=== PATIENT | female | born 1955 | race Caucasian/White ===

== ENCOUNTER 2024-04-24 10:27 | Inpatient (IN) | payer MEDICARE, OTHER ==
--- NOTE | 2024-04-24 11:10 | ED ---
General Adult HPI - General Source: family, RN notes reviewed Mode of arrival: wheelchair Limitations: no limitations <Claudia Parikh - Last Filed: 04/24/24 11:08> - General Source: patient, RN notes reviewed Limitations: no limitations <Jeferson Garcia - Last Filed: 04/24/24 13:46> - General Chief complaint: Weakness Stated complaint: Weakness Time Seen by Provider: 04/24/24 11:08 - History of Present Illness Initial comments: Quick note: 68-year-old female presented to the ER with a chief complaint of weakness. Family reports on Saturday patient started to not act herself. Family believes she has a UTI. They state 1 morning she woke up and her bilateral hands and face were swollen. Family report patient was found on the ground this morning. Patient denies any current pain. (Claudia Parikh) Patient is a 68-year-old female presenting to the emergency department for concerns for weakness. Patient states she has felt more weak the past couple of days. Patient admits to feeling dry when questioned. Patient states she did have a fall yesterday however denies any injury. (Jeferson Garcia) - Related Data Home Medications Medication Instructions Recorded Confirmed metFORMIN HCL [Glucophage] 500 mg PO BID PRN 06/18/14 04/24/24 Aspirin 81 mg PO DAILY 04/24/24 04/24/24 Atorvastatin [Lipitor] 40 mg PO HS 04/24/24 04/24/24 Clopidogrel [Plavix] 75 mg PO DAILY 04/24/24 04/24/24 Loratadine [Claritin] 10 mg PO DAILY 04/24/24 04/24/24 Trospium Chloride 20 mg PO DAILY 04/24/24 04/24/24 lisinopriL [Zestril] 2.5 mg PO DAILY 04/24/24 04/24/24 Allergies Allergy/AdvReac Type Severity Reaction Status Date / Time clarithromycin [From Biaxin] Allergy Rash/Hives Verified 04/24/24 12:41 Review of Systems ROS Other: All systems not noted in ROS Statement are negative. <Claudia Parikh - Last Filed: 04/24/24 11:08> ROS Other: All systems not noted in ROS Statement are negative. Constitutional: Denies: fever (Patient denies) Respiratory: Denies: cough, dyspnea Cardiovascular: Denies: chest pain Gastrointestinal: Denies: abdominal pain Neurological: Reports: as per HPI, weakness. Denies: headache <Jeferson Garcia - Last Filed: 04/24/24 13:46> ROS Statement: Those systems with pertinent positive or pertinent negative responses have been documented in the HPI. Past Medical History Past Medical History: Diabetes Mellitus, Fibromyalgia, Rheumatoid Arthritis (RA) History of Any Multi-Drug Resistant Organisms: None Reported Past Surgical History: Tubal Ligation Past Anesthesia/Blood Transfusion Reactions: No Reported Reaction Past Psychological History: No Psychological Hx Reported Past Alcohol Use History: None Reported Past Drug Use History: None Reported <Claudia Parikh - Last Filed: 04/24/24 11:08> General Exam Limitations: no limitations <Claudia Parikh - Last Filed: 04/24/24 11:08> Limitations: no limitations General appearance: alert, in no apparent distress Head exam: Present: atraumatic, normocephalic Eye exam: Present: normal appearance, PERRL, EOMI ENT exam: Present: mucous membranes dry Neck exam: Present: normal inspection. Absent: tenderness, meningismus Respiratory exam: Present: normal lung sounds bilaterally Cardiovascular Exam: Present: regular rate, normal rhythm GI/Abdominal exam: Present: soft. Absent: tenderness Extremities exam: Present: normal inspection, full ROM. Absent: tenderness Neurological exam: Present: alert, oriented X3, CN II-XII intact. Absent: motor sensory deficit Expanded Neurological exam: Present: protecting the airway Patient oriented to: Present: person, place, time Speech: Present: fluid speech Motor strength exam: RUE: 5, LUE: 5, RLE: 5, LLE: 5 Eye Response: (4) open spontaneously Motor Response: (6) obeys commands Verbal Response: (5) oriented Psychiatric exam: Present: normal affect, normal mood Skin exam: Present: normal color <Jeferson Garcia - Last Filed: 04/24/24 13:46> - General Exam Comments Initial Comments: Visual Physical Exam Vital signs reviewed General: Well-appearing, nontoxic, no acute distress. Head: Normocephalic, atraumatic Eyes: PERRLA, EOMI ENT: Airway patent Chest: Nonlabored breathing Skin: No visual rash, normal skin tone Neuro: Alert and oriented 3 Musculoskeletal: No gross abnormalities (Claudia Parikh) Course <Jeferson Garcia - Last Filed: 04/24/24 13:46> Vital Signs 04/24/24 04/24/24 10:34 10:40 Temperature 101.2 F H Pulse Rate 94 83 Respiratory 18 16 Rate Blood Pressure 166/80 163/63 O2 Sat by Pulse 97 94 L Oximetry - Reevaluation(s) Reevaluation #1: 04/24/24 12:21 Family and patient refused CT scan stating symptoms are similar to previous urinary tract infection and they do not feel it is necessary. (Jeferson Garcia) EKG Findings - EKG Results: EKG: interpreted by ERMD (Inferior T wave inversion. Lateral T wave inversion.), sinus rhythm, normal axis, normal QRS EKG shows: atrial fibrillation <Jeferson Garcia - Last Filed: 04/24/24 13:46> Medical Decision Making <Claudia Parikh - Last Filed: 04/24/24 11:08> - Lab Data Result diagrams: 04/24/24 11:12 04/24/24 11:12 <Jeferson Garcia - Last Filed: 04/24/24 13:46> - Medical Decision Making I performed the quick note portion of this chart. Electronically signed by Claudia Parikh PA-C (Claudia Parikh) Was pt. sent in by a medical professional or institution ([facility], [facility], urgent care, hospital, or half-way...) When possible be specific @ -No Did you speak to anyone other than the patient for history (EMS, parent, family, police, friend...)? What history was obtained from this source @ -Daughter provides history of similar symptoms previously Did you review nursing and triage notes (agree or disagree)? Why? @ -I reviewed and agree with nursing and triage notes Were old charts reviewed (outside hosp., previous admission, EMS record, old EKG, old radiological studies, urgent care reports/EKG's, half-way records)? Report findings @ -No old charts were reviewed Differential Diagnosis (chest pain, altered mental status, abdominal pain women, abdominal pain men, vaginal bleeding, weakness, fever, dyspnea, syncope, headache, dizziness, GI bleed, back pain, seizure, CVA, palpatations, mental health, musculoskeletal)? @ -Differential Weakness: Hypoglycemia, shock, sepsis, hyponatremia, anemia, infection, ID, ETOH, adverse medicine reaction, overdose, stroke, this is not meant to be an all-inclusive list. EKG interpreted by me (3pts min.). @ -As above X-rays interpreted by me (1pt min.). @ -Chest x-ray shows no acute process CT interpreted by me (1pt min.). @ -None done U/S interpreted by me (1pt. min.). @ -None done What testing was considered but not performed or refused? (CT, X-rays, U/S, labs)? Why? @ -CT brain was ordered by PA however family patient refused because of similar symptoms previously associated with urinary tract infection. What meds were considered but not given or refused? Why? @ -None Did you discuss the management of the patient with other professionals (professionals i.e. , PA, [facility], lab, RT, psych nurse, rn social work, end worker, teacher, probation and parole officer, case preparer and liner)? Give summary @ -Case discussed with Dr. Burns who will admit covering Dr. Madsen Was smoking cessation discussed for >3mins.? @ -No Was critical care preformed (if so, how long)? @ -31 minutes critical care time provided Were there social determinants of health that impacted care today? How? (Homelessness, low income, unemployed, alcoholism, drug addiction, t ransportation, low edu. Level, literacy, decrease access to med. care, correction, rehab)? @ -No Was there de-escalation of care discussed even if they declined (Discuss DNR or withdrawal of care, Hospice)? DNR status @ -No What co-morbidities impacted this encounter? (DM, HTN, Smoking, COPD, CAD, Cance r, CVA, ARF, Chemo, Hep., AIDS, mental health diagnosis, sleep apnea, morbid obesity)? @ -None Was patient admitted / discharged? Hospital course, mention meds given and route, prescriptions, significant lab abnormalities, going to OR and other pertinent info. @ -Patient presents with weakness confusion and fever and urinary tract infection. Patient will be admitted. Admission orders written. There is concern for sepsis diagnosed at 1330. Blood culture and lactic acid and IV antibiotics have all been ordered. Undiagnosed new problem with uncertain prognosis? @ -No Drug Therapy requiring intensive monitoring for toxicity (Heparin, Nitro, Insulin, Cardizem)? @ -No Were any procedures done? @ -No Diagnosis/symptom? @ -UTI, sepsis Acute, or Chronic, or Acute on Chronic? @ -Acute, acute Uncomplicated (without systemic symptoms) or Complicated (systemic symptoms)? @ -Default Side effects of treatment? @ -No Exacerbation, Progression, or Severe Exacerbation? @ -No Poses a threat to life or bodily function? How? (Chest pain, USA, ID, pneumonia, PE, COPD, DKA, ARF, appy, cholecystitis, CVA, Diverticulitis, Homicidal, Suicidal, threat to staff... and all critical care pts) @ -Threat to organ function diffusely (Jeferson Garcia) - Lab Data Lab Results 04/24/24 04/24/24 04/24/24 Range/Units 11:12 11:12 11:12 WBC 13.8 H (3.8-10.6) k/uL RBC 4.36 (3.80-5.40) m/uL Hgb 13.4 (11.4-16.0) gm/dL Hct 40.4 (34.0-46.0) % MCV 92.7 (80.0-100.0) fL MCH 30.7 (25.0-35.0) pg MCHC 33.1 (31.0-37.0) g/dL RDW 13.9 (11.5-15.5) % Plt Count 207 (150-450) k/uL MPV 8.7 Neutrophils % 90 % Lymphocytes % 4 % Monocytes % 4 % Eosinophils % 1 % Basophils % 0 % Neutrophils # 12.5 H (1.3-7.7) k/uL Lymphocytes # 0.5 L (1.0-4.8) k/uL Monocytes # 0.5 (0-1.0) k/uL Eosinophils # 0.1 (0-0.7) k/uL Basophils # 0.0 (0-0.2) k/uL Sodium 130 L (137-145) mmol/L Potassium 3.4 L (3.5-5.1) mmol/L Chloride 100 (98-107) mmol/L Carbon Dioxide 25 (22-30) mmol/L Anion Gap 5 mmol/L BUN 14 (7-17) mg/dL Creatinine 0.84 (0.52-1.04) mg/dL Est GFR (CKD-EPI)AfAm 81 (>60 ml/min/1.73 sqM) Est GFR (CKD-EPI)NonAf 71 (>60 ml/min/1.73 sqM) Glucose 261 H (74-99) mg/dL Plasma Lactic Acid Edgardo (0.7-2.0) mmol/L Calcium 8.5 (8.4-10.2) mg/dL Total Bilirubin 1.0 (0.2-1.3) mg/dL AST 30 (14-36) U/L ALT 14 (4-34) U/L Alkaline Phosphatase 120 (38-126) U/L Total Protein 6.7 (6.3-8.2) g/dL Albumin 3.5 (3.5-5.0) g/dL Urine Color Yellow Urine Appearance Turbid H (Clear) Urine pH 6.5 (5.0-8.0) Ur Specific [place] 1.018 (1.001-1.035) Urine Protein 3+ H (Negative) Urine Glucose (UA) Negative (Negative) Urine Ketones 1+ H (Negative) Urine Blood Moderate H (Negative) Urine Nitrite Negative (Negative) Urine Bilirubin Negative (Negative) Urine Urobilinogen <2.0 (<2.0) mg/dL Ur Leukocyte Esterase Large H (Negative) Urine RBC 14 H (0-5) /hpf Urine WBC >182 H (0-5) /hpf Urine WBC Clumps Many H (None) /hpf Urine Bacteria Moderate H (None) /hpf Hyaline Casts 5 H (0-2) /lpf Urine Mucus Occasional H (None) /hpf Influenza Type A (PCR) (Not Detectd) Influenza Type B (PCR) (Not Detectd) RSV (PCR) (Not Detectd) SARS-CoV-2 (PCR) (Not Detectd) 04/24/24 04/24/24 Range/Units 11:12 11:12 WBC (3.8-10.6) k/uL RBC (3.80-5.40) m/uL Hgb (11.4-16.0) gm/dL Hct (34.0-46.0) % MCV (80.0-100.0) fL MCH (25.0-35.0) pg MCHC (31.0-37.0) g/dL RDW (11.5-15.5) % Plt Count (150-450) k/uL MPV Neutrophils % % Lymphocytes % % Monocytes % % Eosinophils % % Basophils % % Neutrophils # (1.3-7.7) k/uL Lymphocytes # (1.0-4.8) k/uL Monocytes # (0-1.0) k/uL Eosinophils # (0-0.7) k/uL Basophils # (0-0.2) k/uL Sodium (137-145) mmol/L Potassium (3.5-5.1) mmol/L Chloride (98-107) mmol/L Carbon Dioxide (22-30) mmol/L Anion Gap mmol/L BUN (7-17) mg/dL Creatinine (0.52-1.04) mg/dL Est GFR (CKD-EPI)AfAm (>60 ml/min/1.73 sqM) Est GFR (CKD-EPI)NonAf (>60 ml/min/1.73 sqM) Glucose (74-99) mg/dL Plasma Lactic Acid Edgardo 1.5 (0.7-2.0) mmol/L Calcium (8.4-10.2) mg/dL Total Bilirubin (0.2-1.3) mg/dL AST (14-36) U/L ALT (4-34) U/L Alkaline Phosphatase (38-126) U/L Total Protein (6.3-8.2) g/dL Albumin (3.5-5.0) g/dL Urine Color Urine Appearance (Clear) Urine pH (5.0-8.0) Ur Specific [place] (1.001-1.035) Urine Protein (Negative) Urine Glucose (UA) (Negative) Urine Ketones (Negative) Urine Blood (Negative) Urine Nitrite (Negative) Urine Bilirubin (Negative) Urine Urobilinogen (<2.0) mg/dL Ur Leukocyte Esterase (Negative) Urine RBC (0-5) /hpf Urine WBC (0-5) /hpf Urine WBC Clumps (None) /hpf Urine Bacteria (None) /hpf Hyaline Casts (0-2) /lpf Urine Mucus (None) /hpf Influenza Type A (PCR) Not Detected (Not Detectd) Influenza Type B (PCR) Not Detected (Not Detectd) RSV (PCR) Not Detected (Not Detectd) SARS-CoV-2 (PCR) Not Detected (Not Detectd) Disposition <Claudia Parikh - Last Filed: 04/24/24 11:08> Is patient prescribed a controlled substance at d/c from ED?: No Time of Disposition: 13:46 <Jeferson Garcia - Last Filed: 04/24/24 13:46> Clinical Impression: UTI (urinary tract infection), Sepsis Disposition: ADMITTED IP TO THIS HOSP Referrals: Bryson Ansari DO [Primary Care Provider] - 1-2 days
[2024-04-24 11:38] LABS: Basophils % (A) 0 %; Eosinophils # (A) 0.1 k/uL (0-0.7); Eosinophils % (A) 1 %; HCT 40.4 % (34.0-46.0); HGB 13.4 gm/dL (11.4-16.0); Lymphocytes # (A) 0.5 k/uL (1.0-4.8); Lymphocytes % (A) 4 %; MCH 30.7 pg (25.0-35.0); MCHC 33.1 g/dL (31.0-37.0); MCV 92.7 fL (80.0-100.0); Mean Platelet Volume 8.7; Monocytes # (A) 0.5 k/uL (0-1.0); Monocytes % (A) 4 %; Neutrophils # (A) 12.5 k/uL (1.3-7.7); Neutrophils % (A) 90 %; Platelet Count 207 k/uL (150-450); RBC 4.36 m/uL (3.80-5.40); RDW 13.9 % (11.5-15.5); WBC 13.8 k/uL (3.8-10.6)
[2024-04-24 12:28] LABS: ALT 14 U/L (4-34); AST 30 U/L (14-36); African American GFR (CKD) 81 (>60 ml/min/1.73 sqM); Albumin 3.5 g/dL (3.5-5.0); Alkaline Phosphatase 120 U/L (38-126); Anion Gap 5 mmol/L; Blood Urea Nitrogen 14 mg/dL (7-17); Calcium 8.5 mg/dL (8.4-10.2); Carbon Dioxide 25 mmol/L (22-30); Chloride 100 mmol/L (98-107); Glucose 261 mg/dL (74-99); Non-African American GFR(CKD) 71 (>60 ml/min/1.73 sqM); Potassium 3.4 mmol/L (3.5-5.1); Sodium 130 mmol/L (137-145); Total Protein 6.7 g/dL (6.3-8.2)
[2024-04-24 12:33] LABS: Appearance,Urine Turbid (Clear); Bacteria,Urine Moderate /hpf; Bilirubin,Urine Negative (Negative); Blood,Urine Moderate (Negative); Color,Urine Yellow; Glucose,Urine (UA) Negative (Negative); Hyaline Casts,Urine 5 /lpf (0-2); Ketones,Urine 1+ (Negative); Leukocyte Esterase,Urine Large (Negative); Mucus,Urine Occasional /hpf; Nitrite,Urine Negative (Negative); PH, Urine 6.5 (5.0-8.0); Protein,Urine 3+ (Negative); RBC,Urine 14 /hpf (0-5); Specific Gravity,Urine 1.018 (1.001-1.035); Urobilinogen,Urine <2.0 mg/dL (<2.0); WBC,Urine >182 /hpf (0-5)
[2024-04-24] MEDS: ACETAMINOPHEN TAB 500 MG TAB PO STA (12:41)
--- NOTE | 2024-04-24 12:45 | XR ---
EXAMINATION TYPE: XR chest 2V DATE OF EXAM: 04/24/2024 COMPARISON: 05/07/2012 INDICATION: Fever, weakness TECHNIQUE: Frontal and lateral views of the chest are obtained. FINDINGS: The heart size is normal. The pulmonary vasculature is normal. The lungs are clear. IMPRESSION: 1. No acute pulmonary process.
[2024-04-24] MEDS: SODIUM CHLORIDE 0.9% 1,000 ML IV STA (13:12)
[2024-04-24] MEDS ORDERED: metFORMIN 500 MG TAB PO PRN (13:46)
[2024-04-24] MEDS ORDERED: NALOXONE 0.4 MG/ML 1 ML VIAL IV PRN (13:50)
[2024-04-24] MEDS ORDERED: ACETAMINOPHEN TAB 325 MG TAB PO PRN (13:50)
[2024-04-24] MEDS: SODIUM CHLORIDE 0.9% 1,000 ML IV SCH (14:18)
[2024-04-24] MEDS ORDERED: DEXTROSE 50% SYRINGE 50 ML IVP PRN ×2 (15:22)
[2024-04-24] MEDS ORDERED: HYDROcodone/APAP 5-325MG 1 EACH TAB PO PRN (15:22)
[2024-04-24] MEDS: methylPREDNISolone SOD SUCCI 125 MG/2 ML VIAL IV SCH (16:35)
[2024-04-24 16:44] LABS: C Reactive Protein 26.2 mg/dL (<1.0)
[2024-04-24 18:02] LABS: Glucose,Whole Blood 218 mg/dL (70-110)
[2024-04-24] MEDS: INSULIN ASPART (NovoLOG) 100 UNIT/ML VIAL SQ SCH (18:14)
[2024-04-24 20:26] LABS: Glucose,Whole Blood 250 mg/dL (70-110)
[2024-04-24] MEDS: HEPARIN SODIUM,PORCINE 5,000 UNIT/ML 1 ML VIAL SQ SCH (20:45)
[2024-04-24] MEDS: ATORVASTATIN 40 MG TAB PO SCH (20:45)
--- NOTE | 2024-04-24 22:20 | HP ---
HISTORY AND PHYSICAL CHIEF COMPLAINT: Weakness. HISTORY OF PRESENT ILLNESS: This is a 68-year-old woman with a past medical history of multiple medical problems including diabetes, fibromyalgia, rheumatoid arthritis, was complaining of weakness. The family reports that the patient woke up and the hands were swollen. The patient was found on the ground and the patient was confused. The patient was admitted for further evaluation and treatment. There is no history of any fever, rigors, or chills at this time. PAST MEDICAL HISTORY: Rheumatoid arthritis, fibromyalgia, diabetes mellitus type 2, rest of the history and rest of the chart reviewed. HOME MEDICATIONS: Glucophage, dose and rest of medications reviewed. ALLERGIES: Biaxin. FAMILY HISTORY: No history of heart disease or strokes in the family. SOCIAL HISTORY: No history of smoking or alcohol. REVIEW OF SYSTEMS: A 14-point review is negative except as mentioned earlier. The patient is slightly drowsy. PHYSICAL EXAMINATION: VITAL SIGNS: Pulse is 73, blood pressure is 130/70, respirations 18, and temperature is 101.2. HEENT: Conjunctivae normal. NECK: No jugular venous distention. CARDIOVASCULAR: S1, S2. RESPIRATIONS: Diminished at the bases, few scattered rhonchi and crackles. ABDOMEN: Soft, nontender. LEGS: No edema, no swelling. NERVOUS SYSTEM: Diffusely weak. EXTREMITIES: Both hand swelling present. LABORATORY DATA: WBC 13.8, rest of the labs are noted. ASSESSMENT: 1. Acute UTI with sepsis present on admission. 2. Elevated creatine kinase. 3. Elevated WBC. 4. Diabetes mellitus type 2, uncontrolled. 5. Hyponatremia. 6. Hypokalemia. 7. Fibromyalgia. 8. Rheumatoid arthritis. 9. Bilateral hand swelling. RECOMMENDATIONS AND DISCUSSION: This 68-year-old woman presented with multiple complex medical issues, we will monitor the patient closely. We will initiate broad-spectrum IV antibiotics, obtain the cultures. I would also recommend IV steroids for possible rheumatoid arthritis exacerbation. Cultures will be obtained. Prognosis guarded because of multiple complex medical issues. Otherwise, I would also recommend evaluation by Infectious Disease. Guarded prognosis because of multiple complex medical issues. Further recommendations to follow. See orders for details. MMODL / IJN: [id number] / MTDD
[2024-04-25 05:44] LABS: Glucose,Whole Blood 249 mg/dL (70-110)
[2024-04-25] MEDS: PANTOPRAZOLE 40 MG TABLET PO SCH (06:04)
[2024-04-25] MEDS: LORATADINE 10 MG TAB PO SCH (08:36)
[2024-04-25] MEDS: ASPIRIN 81 MG PO SCH (08:36)
[2024-04-25] MEDS: CLOPIDOGREL 75 MG TAB PO SCH (08:36)
[2024-04-25] MEDS: TROSPIUM CHLORIDE 20 MG TABLET PO SCH (08:36)
[2024-04-25 09:37] LABS: BUN/Creat Ratio 19.89 Ratio (12.00-20.00); Blood Urea Nitrogen 17.9 mg/dL (9.0-27.0); Calcium 8.4 mg/dL (8.7-10.3); Carbon Dioxide 23.8 mmol/L (21.6-31.8); Chloride 98 mmol/L (96-109); Glucose 261 mg/dL (70-110); Potassium 3.3 mmol/L (3.5-5.5); Sodium 134 mmol/L (135-145)
[2024-04-25 09:39] LABS: HCT 33.9 % (37.2-46.3); HGB 11.5 g/dL (12.0-15.0); MCH 31.9 pg (27.0-32.0); MCHC 33.9 g/dL (32.0-37.0); MCV 93.9 FL (80.0-97.0); Mean Platelet Volume 10.7 FL (9.5-12.2); NRBC Per 100 WBC 0 X 10*3/uL (0.00-0.01); Platelet Count 147 X 10*3/uL (140-440); RBC 3.61 X 10*6/uL (4.10-5.20); RDW 14.3 % (11.5-14.5); WBC 11.58 X 10*3/uL (4.50-10.00)
[2024-04-25 10:11] LABS: Magnesium 1.6 mg/dL (1.6-2.3)
[2024-04-25 10:21] LABS: Basophils # (A) 0.03 X 10*3/uL (0.00-0.10); Basophils % (A) 0.3 %; Eosinophils # (A) 0 X 10*3/uL (0.04-0.35); Eosinophils % (A) 0 %; Lymphocytes # (A) 0.46 X 10*3/uL (0.90-5.00); Monocytes % (A) 0.9 %
[2024-04-25 11:09] LABS: T4, Free (Free Thyroxine) 1.21 ng/dL (0.78-2.19)
[2024-04-25 11:36] LABS: Glucose,Whole Blood 373 mg/dL (70-110)
--- NOTE | 2024-04-25 12:16 | P.CRDCN ---
History of Present Illness Consult date: 04/25/24 Consult reason: atrial fibrillation History of present illness: The patient is a 68-year-old female with past medical history of diabetes and hypertension, who presented to the hospital with symptoms of a urinary tract infection. The patient states she did have a recent admission to [facility] for UTI and sepsis, where she was also treated for severe hyponatremia. Cardiology has been consulted at this admission for atrial fib rillation. EKG was evaluated by Dr. Couch and she has accelerated junctional arrhythmia with A-V dissociation. DIAGNOSTICS: EKG shows accelerated junctional rhythm with PAC Follow-up EKG shows sinus mechanism with incomplete left bundle and diffuse deep T wave inversions Chest x-ray shows no acute cardiopulmonary process Labs: WBC 11.5, hemoglobin 11.5, hematocrit 33.9, platelet 147, sodium 134, potassium 3.3, BUN 17, creatinine 0.9, hemoglobin A1c is 8.1, magnesium 1.6, TSH 0.06, CRP 26, CK 181, rheumatoid factor 74, positive for urinary tract infection REVIEW OF SYSTEMS: No fever or chills. No cough or expectoration. No diaphoresis. Patient denies headache, dizziness, blurred vision, double vision. Patient denies any stomach discomfort. No nausea, vomiting. No hematochezia. No hematemesis. Denies any black stools or blood in his stools. Denies dysuria or hematuria. No muscle weakness or numbness. Denies chest pain or chest pressure. No difficulty breathing PHYSICAL EXAMINATION: This is a 68-year-old female in no apparent distress at the time of my examination. HEENT: Head is atraumatic, normocephalic. Pupils are equal, round. Sclerae anicteric. Conjunctivae are clear. Mucous membranes of the mouth are moist. Neck is supple. There is no jugular venous distention. No carotid bruit is heard. CHEST EXAMINATION: Lungs are clear to auscultation. No chest wall tenderness is noted on palpation or with deep breathing. HEART EXAMINATION: Heart regular rate and rhythm. S1, S2 heard. No murmurs, gallops or rub. ABDOMEN: Soft, nontender. Bowel sounds are heard. No organomegaly noted. EXTREMITIES: 2+ peripheral pulses with no evidence of peripheral edema and no calf tenderness noted. NEUROLOGIC EXAMINATION: Patient is awake, alert and oriented x3. FINAL ASSESSMENT AND PLAN: Accelerated junctional rhythm in the setting of an acute inflammatory response Suppressed TSH Elevated inflammatory markers Urinary tract infection History of diabetes mellitus, hemoglobin A1c 8.1 History hypertension PLAN: Trend troponin for suspected myocardial inflammation Continue to monitor via telemetry Abnormal TSH, defer to primary team Further recommendations to be based upon clinical course I am dictating on behalf of Dr Hunter Couch's history/physical and assessment/plan. Past Medical History Past Medical History: Diabetes Mellitus, Fibromyalgia, Rheumatoid Arthritis (RA) History of Any Multi-Drug Resistant Organisms: None Reported Past Surgical History: Tubal Ligation Past Anesthesia/Blood Transfusion Reactions: No Reported Reaction Past Psychological History: No Psychological Hx Reported Smoking Status: Current every day smoker Past Alcohol Use History: None Reported Past Drug Use History: None Reported Medications and Allergies Home Medications Medication Instructions Recorded Confirmed Type metFORMIN HCL [Glucophage] 500 mg PO BID PRN 06/18/14 04/24/24 History Aspirin 81 mg PO DAILY 04/24/24 04/24/24 History Atorvastatin [Lipitor] 40 mg PO HS 04/24/24 04/24/24 History Clopidogrel [Plavix] 75 mg PO DAILY 04/24/24 04/24/24 History Loratadine [Claritin] 10 mg PO DAILY 04/24/24 04/24/24 History Trospium Chloride 20 mg PO DAILY 04/24/24 04/24/24 History lisinopriL [Zestril] 2.5 mg PO DAILY 04/24/24 04/24/24 History Allergies Allergy/AdvReac Type Severity Reaction Status Date / Time clarithromycin [From Biaxin] Allergy Rash/Hives Verified 04/24/24 12:41 Physical Exam Vitals: Vital Signs Temp Pulse Pulse Resp BP BP Pulse Ox 04/25/24 07:00 98.5 F 76 18 146/70 92 L 04/25/24 01:43 98.1 F 69 19 123/75 95 04/24/24 19:32 99.1 F 84 18 147/58 92 L 04/24/24 18:18 88 16 101/67 96 04/24/24 15:07 73 18 133/56 94 L Intake and Output 04/24/24 04/25/24 04/25/24 22:59 06:59 14:59 Other: Voiding Method Diaper Incontinent # Voids 1 Weight 63.503 kg Results 04/25/24 06:43 06/01/24 06:43 Cardiac Enzymes 04/24/24 Range/Units 11:12 AST 30 (14-36) U/L CBC 04/25/24 Range/Units 06:43 WBC 11.58 H (4.50-10.00) X 10*3/uL RBC 3.61 L (4.10-5.20) X 10*6/uL Hgb 11.5 L (12.0-15.0) g/dL Hct 33.9 L (37.2-46.3) % Plt Count 147 (140-440) X 10*3/uL Comprehensive Metabolic Panel 04/24/24 04/25/24 Range/Units 11:12 06:43 Sodium 130 L 134 L (137-145) mmol/L Potassium 3.4 L 3.3 L (3.5-5.1) mmol/L Chloride 100 98 (98-107) mmol/L Carbon Dioxide 25 23.8 (22-30) mmol/L BUN 14 17.9 (7-17) mg/dL Creatinine 0.84 0.9 (0.52-1.04) mg/dL Glucose 261 H 261 H (74-99) mg/dL Calcium 8.5 8.4 L (8.4-10.2) mg/dL AST 30 (14-36) U/L ALT 14 (4-34) U/L Alkaline Phosphatase 120 (38-126) U/L Total Protein 6.7 (6.3-8.2) g/dL Albumin 3.5 (3.5-5.0) g/dL Current Medications Generic Name Dose Route Start Last Admin Trade Name Freq PRN Reason Stop Dose Admin Acetaminophen 650 mg 04/24/24 13:50 Acetaminophen Tab 325 Mg Tab PO Q6HR PRN Mild Pain or Fever > 100.5 Hydrocodone Bitart/Acetaminophen 1 each 04/24/24 15:22 Hydrocodone/Apap 5-325mg 1 Each Tab PO Q6HR PRN Pain Atorvastatin Calcium 40 mg 04/24/24 21:00 04/24/24 20:45 Atorvastatin 40 Mg Tab PO 40 mg HS ANA MARIA Administration Clopidogrel Bisulfate 75 mg 04/25/24 09:00 04/25/24 08:36 Clopidogrel 75 Mg Tab PO 75 mg DAILY ANA MARIA Administration Dextrose/Water 25 ml 04/24/24 15:22 Dextrose 50% Syringe 50 Ml IVP PER PROTOCOL PRN Hypoglycemia Protocol Dextrose/Water 50 ml 04/24/24 15:22 Dextrose 50% Syringe 50 Ml IVP PER PROTOCOL PRN Hypoglycemia Protocol Heparin Sodium (Porcine) 5,000 unit 04/24/24 21:00 04/25/24 08:36 Heparin Sodium,Porcine 5,000 Unit/Ml 1 Ml Vial SQ 5,000 unit Q12HR ANA MARIA Administration Sodium Chloride 1,000 mls @ 130 mls/hr 04/24/24 14:00 04/25/24 06:09 Saline 0.9% IV 130 mls/hr .[id number] ANA MARIA Administration Ceftriaxone Sodium 2 gm/ 50 mls @ 100 mls/hr 04/26/24 09:00 Sodium Chloride IVPB Q24HR ANA MARIA Protocol Insulin Aspart 0 unit 04/24/24 17:30 04/25/24 11:49 Insulin Aspart (Novolog) 100 Unit/Ml Vial SQ 20 unit ACHS ANA MARIA Administration Protocol Lisinopril 2.5 mg 04/25/24 09:00 04/25/24 08:36 Lisinopril 2.5 Mg Tab PO 2.5 mg DAILY ANA MARIA Administration Loratadine 10 mg 04/25/24 09:00 04/25/24 08:36 Loratadine 10 Mg Tab PO 10 mg DAILY ANA MARIA Administration Metformin HCl 500 mg 04/24/24 13:46 Metformin 500 Mg Tab PO BID PRN high BS, hold for bowel issues Methylprednisolone Sodium Succinate 60 mg 04/24/24 15:22 04/25/24 11:48 Methylprednisolone Sod Succi 125 Mg/2 Ml Vial IV 60 mg Q6HR ANA MARIA Administration Naloxone HCl 0.2 mg 04/24/24 13:50 Naloxone 0.4 Mg/Ml 1 Ml Vial IV Q2M PRN Opioid Reversal Pantoprazole Sodium 40 mg 04/25/24 07:30 04/25/24 06:05 Pantoprazole 40 Mg Tablet PO 40 mg [id number] ANA MARIA Administration Trospium 20 mg 04/25/24 09:00 04/25/24 08:36 Trospium Chloride 20 Mg Tablet PO 20 mg DAILY ANA MARIA Administration Intake and Output 04/24/24 04/25/24 04/25/24 22:59 06:59 14:59 Other: Voiding Method Diaper Incontinent # Voids 1 Weight 63.503 kg 04/25/24 06:43 06/01/24 06:43
--- NOTE | 2024-04-25 12:16 | P.PN ---
Progress Note - Text First twelve-lead EKG showed accelerated junctional rhythm with clear evidence of A-V dissociation Follow-up twelve-lead EKG showed sinus rhythm Both EKG showed deep T wave inversions, diffuse She is diabetic hemoglobin A1c is 8.1 She has a UTI with a C-reactive protein of 26 Her CK is 181 Potassium 3.3 calcium 8.5 Abnormal UA Negative PCR for influenza A and influenza B and RSV as well as COVID Rheumatoid factor 74 TSH suppressed at 0.66 Impression Accelerated junctional rhythm and deep T wave inversions on twelve-lead EKG without any significant cardiac symptoms presently, in the setting of an inflammatory state She presented with a fall Type 2 diabetes Plan telemetry monitoring Troponin levels 2D echo Doppler study to assess LV and RV size and function
--- NOTE | 2024-04-25 12:44 | CA ---
Transthoracic Echo Report Name: Debi Crocker Age: 68 Gender: F : 1955 Exam Date: 04/25/2024 11:39 Exam Location: [place] [facility] Ht (in): 63 Wt (lb): 161 Ordering Physician: Lindsay Gallagher Attending/Referring Phys: [id number], Aileen Squilgeer Angela Phoenix, NEREYDA Procedure CPT: Indications: new EKG changes/AFib Cardiac Hx: Technical Quality: Fair Contrast 1: Total Dose (mL): Contrast 2: Total Dose (mL): MEASUREMENTS (Male / Female) Normal Values 2D ECHO LV Diastolic Diameter PLAX 5.1 cm 4.2 - 5.9 / 3.9 - 5.3 cm LV Systolic Diameter PLAX 3.2 cm IVS Diastolic Thickness 1.2 cm 0.6 - 1.0 / 0.6 - 0.9 cm LVPW Diastolic Thickness 1.3 cm 0.6 - 1.0 / 0.6 - 0.9 cm LV Relative Wall Thickness 0.5 RV Internal Dim ED PLAX 2.1 cm LA Systolic Diameter LX 4.9 cm 3.0 - 4.0 / 2.7 - 3.8 cm LV Diastolic Volume MOD BP 82.2 cm??? 67 - 155 / 56 - 104 cm??? LV Systolic Volume MOD BP 38.5 cm??? - 58 / 19 - 49 cm??? LV Ejection Fraction MOD BP 53.2 % >= 55 % LV Cardiac Index MOD BP 1845.2 cm???/min???m??? LV Diastolic Volume MOD 4C 83.7 cm??? LV Systolic Volume MOD 4C 36.1 cm??? LV Ejection Fraction MOD 4C 56.9 % LV Cardiac Index MOD 4C 2010.5 cm???/min???m??? LV Diastolic Length 4C 7.6 cm LV Systolic Length 4C 6.8 cm LV Diastolic Volume MOD 2C 80.6 cm??? LV Systolic Volume MOD 2C 39.9 cm??? LV Ejection Fraction MOD 2C 50.6 % LV Cardiac Index MOD 2C 1722.2 cm???/min???m??? LV Diastolic Length 2C 7.6 cm LV Systolic Length 2C 7.1 cm LA Volume 56.1 cm??? 18 - 58 / 22 - 52 cm??? LA Volume Index 30.7 cm???/m??? 16 - 28 cm???/m??? M-MODE Aortic Root Diameter MM 2.8 cm LA Systolic Diameter MM 3.9 cm LA Ao Ratio MM 1.4 AV Cusp Separation MM 1.5 cm DOPPLER AV Peak Velocity 164.8 cm/s AV Peak Gradient 10.9 mmHg FINDINGS Left Ventricle No obvious regional wall motion abnormalities. Left ventricular ejection fraction is estimated at 55-60 %. Mildly increased septal wall thickness. Mildly increased posterior wall thickness. Right Ventricle Normal right ventricular size and function. Right Atrium Normal right atrial size. Left Atrium Mildly increased left atrial volume. Mildly increased left atrial area. Mitral Valve Structurally normal mitral valve. Mild mitral regurgitation. Aortic Valve Trileaflet aortic valve. Tricuspid Valve Structurally normal tricuspid valve. Trace tricuspid regurgitation. Pulmonic Valve Structurally normal pulmonic valve. Pericardium No pericardial or pleural effusion. Aorta Normal size aortic root and proximal ascending aorta. CONCLUSIONS Normal LV size and function Normal RV size and function No wall motion abnormalities Patient's twelve-lead EKG shows diffuse, deep T wave inversions Previewed by: Dr. Hunter Couch MD (Electronically Signed) Final Date: 25 April 2024 12:43
[2024-04-25] MEDS: INSULIN DETEMIR (LEVEMIR) 100 UNIT/ML SYR SQ SCH (14:31)
[2024-04-25 16:21] LABS: Glucose,Whole Blood 475 mg/dL (70-110)
[2024-04-25] MEDS: methylPREDNISolone SOD SUCCI 40 MG/ML 1 ML VIAL IV SCH (20:48)
[2024-04-25 20:49] LABS: Glucose,Whole Blood 259 mg/dL (70-110)
--- NOTE | 2024-04-26 02:17 | PN ---
PROGRESS NOTE DATE OF SERVICE: 04/25/2024 SUBJECTIVE: This is a 68-year-old woman, who was admitted with acute UTI with sepsis, also had elevated creatine kinase. The patient is being closely monitored at this time. PAST MEDICAL HISTORY: Reviewed. REVIEW OF SYSTEMS: A 14-point review is negative except as mentioned earlier. CURRENT MEDICATIONS: Reviewed include [place], dose and rest of medications noted. PHYSICAL EXAMINATION: VITAL SIGNS: Pulse is 76, blood pressure 140/70, respirations 18. HEENT: Conjunctivae normal. NECK: No JVD. CARDIOVASCULAR: S1, S2. RESPIRATIONS: Breath sounds diminished at the bases. ABDOMEN: Soft. NERVOUS SYSTEM: Diffusely weak. LABORATORY DATA: Sodium 130, potassium 3.3, glucose 373, and troponin 0.637. ASSESSMENT: 1. Acute urinary tract infection with sepsis, present on admission. 2. Elevated creatine kinase. 3. Troponin 0.637. Rule out acute non ST elevation myocardial infarction. 4. Increased WBC. 5. Diabetes mellitus, type 2, uncontrolled. 6. Hyponatremia. 7. Hypokalemia. 8. Rheumatoid arthritis. 9. Bilateral hand swelling. RECOMMENDATIONS: Recommend to continue current management and continue symptomatic treatment. Otherwise, at this time, I would recommend continue with antibiotics. Cardiology consultation. Monitor blood sugars closely. Blood sugars elevated at 3.73. Otherwise, prognosis guarded because of multiple complex medical issues. Further recommendations to follow. See orders for further details. MMODL / IJN: [id number] /
[2024-04-26 05:48] LABS: Glucose,Whole Blood 288 mg/dL (70-110)
[2024-04-26 09:13] LABS: Basophils # (A) 0.02 X 10*3/uL (0.00-0.10); Basophils % (A) 0.1 %; Eosinophils # (A) 0 X 10*3/uL (0.04-0.35); Eosinophils % (A) 0 %; HCT 30.7 % (37.2-46.3); HGB 10.3 g/dL (12.0-15.0); Lymphocytes # (A) 0.81 X 10*3/uL (0.90-5.00); MCH 31.2 pg (27.0-32.0); MCHC 33.6 g/dL (32.0-37.0); Monocytes # (A) 0.37 X 10*3/uL (0.20-1.00); Monocytes % (A) 2.7 %; NRBC Per 100 WBC 0 X 10*3/uL (0.00-0.01); Neutrophils # (A) 12.29 X 10*3/uL (1.80-7.70); Neutrophils % (A) 90.8 %; Platelet Count 183 X 10*3/uL (140-440); RDW 14.4 % (11.5-14.5); WBC 13.54 X 10*3/uL (4.50-10.00)
[2024-04-26 09:31] LABS: BUN/Creat Ratio 24.33 Ratio (12.00-20.00); Blood Urea Nitrogen 21.9 mg/dL (9.0-27.0); Calcium 8.4 mg/dL (8.7-10.3); Carbon Dioxide 20.1 mmol/L (21.6-31.8); Chloride 104 mmol/L (96-109); Glucose 265 mg/dL (70-110); Potassium 3.5 mmol/L (3.5-5.5); Sodium 138 mmol/L (135-145)
[2024-04-26 12:13] LABS: Glucose,Whole Blood 269 mg/dL (70-110)
[2024-04-26] MEDS: lisinopriL 5 MG TAB PO STA (12:29)
--- NOTE | 2024-04-26 13:24 | P.PN ---
Subjective Progress Note Date: 04/26/24 The patient is a 68-year-old female with past medical history of diabetes and hypertension, who presented to the hospital with symptoms of a urinary tract infection. The patient states she did have a recent admission to [facility] [place] for UTI and sepsis, where she was also treated for severe hy ponatremia. During this admission she was noted elevated inflammatory markers as well as new onset of arrhythmia. Echocardiogram reveals preserved LV function, which do not correlate to her deep T wave inversions. She also has a new onset of atrial arrhythmia. It is likely the patient has myocarditis. The patient states she feels well from a heart standpoint. No chest pain. No difficulty breathing. GENERAL: Well-appearing, well-nourished and in no acute distress. NECK: Supple without JVD or thyromegaly. LUNGS: Breath sounds clear to auscultation bilaterally. Respiration equal and unlabored. No wheezes, rales or rhonchi. HEART: Regular rate and rhythm without murmurs, rubs or gallops. S1 and S2 heard. EXTREMITIES: Normal range of motion, no edema. No clubbing or cyanosis. Peripheral pulses intact and strong. TELEMETRY: Sinus rhythm overnight IMPRESSION: Accelerated junctional rhythm in the setting of an acute inflammatory response Suppressed TSH Elevated inflammatory markers Urinary tract infection History of diabetes mellitus, hemoglobin A1c 8.1 History hypertension PLAN: Increase lisinopril for hypertension Diabetes controlled Patient may be discharged from the cardiac standpoint Outpatient follow-up in 2 weeks I am dictating on behalf of Dr Hunter Couch's history/physical and assessment/plan. Objective - Vital Signs Vital signs: Vital Signs Temp 97.8 F 04/26/24 07:45 Pulse 70 04/26/24 07:45 Resp 18 04/26/24 07:45 BP 172/69 04/26/24 07:45 Pulse Ox 98 04/26/24 07:45 FiO2 Intake & Output 04/25/24 04/26/24 04/26/24 18:59 06:59 18:59 Other: Voiding Method Diaper Incontinent # Voids 1 3 - Labs CBC & Chem 7: 04/26/24 04:03 04/26/24 04:03 Labs: Abnormal Lab Results - Last 24 Hours (Table) 04/25/24 04/25/24 04/25/24 Range/Units 12:22 15:19 16:20 WBC (4.50-10.00) X 10*3/uL RBC (4.10-5.20) X 10*6/uL Hgb (12.0-15.0) g/dL Hct (37.2-46.3) % Immature Gran # (0.00-0.04) X 10*3/uL Neutrophils # (1.80-7.70) X 10*3/uL Lymphocytes # (0.90-5.00) X 10*3/uL Eosinophils # (0.04-0.35) X 10*3/uL Carbon Dioxide (21.6-31.8) mmol/L Anion Gap (4.00-12.00) mmol/L BUN/Creatinine Ratio (12.00-20.00) Ratio Glucose (70-110) mg/dL POC Glucose (mg/dL) 475 H (70-110) mg/dL Calcium (8.7-10.3) mg/dL Troponin I 0.637 H* 0.620 H* (0.000-0.034) ng/mL 04/25/24 04/26/24 04/26/24 Range/Units 20:46 04:03 04:03 WBC 13.54 H (4.50-10.00) X 10*3/uL RBC 3.30 L (4.10-5.20) X 10*6/uL Hgb 10.3 L (12.0-15.0) g/dL Hct 30.7 L (37.2-46.3) % Immature Gran # 0.05 H (0.00-0.04) X 10*3/uL Neutrophils # 12.29 H (1.80-7.70) X 10*3/uL Lymphocytes # 0.81 L (0.90-5.00) X 10*3/uL Eosinophils # 0 L (0.04-0.35) X 10*3/uL Carbon Dioxide 20.1 L (21.6-31.8) mmol/L Anion Gap 13.90 H (4.00-12.00) mmol/L BUN/Creatinine Ratio 24.33 H (12.00-20.00) Ratio Glucose 265 H (70-110) mg/dL POC Glucose (mg/dL) 259 H (70-110) mg/dL Calcium 8.4 L (8.7-10.3) mg/dL Troponin I (0.000-0.034) ng/mL 04/26/24 04/26/24 Range/Units 05:46 12:11 WBC (4.50-10.00) X 10*3/uL RBC (4.10-5.20) X 10*6/uL Hgb (12.0-15.0) g/dL Hct (37.2-46.3) % Immature Gran # (0.00-0.04) X 10*3/uL Neutrophils # (1.80-7.70) X 10*3/uL Lymphocytes # (0.90-5.00) X 10*3/uL Eosinophils # (0.04-0.35) X 10*3/uL Carbon Dioxide (21.6-31.8) mmol/L Anion Gap (4.00-12.00) mmol/L BUN/Creatinine Ratio (12.00-20.00) Ratio Glucose (70-110) mg/dL POC Glucose (mg/dL) 288 H 269 H (70-110) mg/dL Calcium (8.7-10.3) mg/dL Troponin I (0.000-0.034) ng/mL Microbiology - Last 24 Hours (Table) 04/24/24 13:35 Blood Culture Gram Stain - Preliminary Blood Blood Culture - Preliminary Escherichia coli Molecular ID 04/24/24 11:12 Urine Culture - Preliminary Urine,Voided Gram Neg Bacilli 04/24/24 13:50 Blood Culture - Preliminary Blood
[2024-04-26] MEDS: IOPAMIDOL CONTRAST (ORAL USE) VIAL PO PRN (13:55)
[2024-04-26] MEDS: predniSONE 10 MG TAB PO SCH (13:55)
--- NOTE | 2024-04-26 16:32 | CT ---
EXAMINATION TYPE: CT abdomen pelvis wo con CT DLP: 690.5 mGycm, Automated exposure control for dose reduction was used. DATE OF EXAM: 04/26/2024 3:55 PM COMPARISON: 10/01/2014. CLINICAL INDICATION:Female, 68 years old with history of pyelo??; Upper abdominal pain TECHNIQUE: Axial CT abdomen pelvis wo con;Sagittal and coronal reformats were created on a separate workstation. Contrast used: mL of , (none if empty) Oral contrast used: with Oral Contrast (none if empty) FINDINGS: LOWER CHEST: Streaky atelectasis with7 thin the lung base on the right. Trace bilateral pleural effus ions suggested. ABDOMEN LIVER: Unremarkable GALLBLADDER AND BILE DUCTS: The gallbladder is surgically absent. SPLEEN: Unremarkable. ADRENAL GLANDS: Unremarkable. KIDNEYS AND URETERS: r nonobstructing renal calculi measuring up to 19 mm on the right and 4 mm on th e left. PELVIS BLADDER: Unremarkable REPRODUCTIVE: Unremarkable. ABDOMEN & PELVIS STOMACH AND BOWEL: No evidence of bowel obstruction. PERITONEUM/RETROPERITONEUM: No evidence of pneumoperitoneum or free fluid. VASCULATURE: Mild atherosclerotic calcifications are present throughout the abdominal aorta and its b ranches. No evidence of aortic aneurysm. MUSCULOSKELETAL: No acute osseous abnormalities. Mild disc degeneration changes are present throughou t the thoracolumbar spine. LYMPH NODES: No gross evidence for lymphadenopathy. SOFT TISSUE/ABDOMINAL WALL: Unremarkable IMPRESSION: 1. No evidence for obstructive uropathy. No evidence for acute upper abdominal process to explain th e patient's pain. 2. Bilateral nonobstructing renal calculi. 3. Trace bilateral pleural effusions.
[2024-04-26 16:49] LABS: Glucose,Whole Blood 324 mg/dL (70-110)
[2024-04-26 21:32] LABS: Glucose,Whole Blood 360 mg/dL (70-110)
--- NOTE | 2024-04-26 22:59 | PN ---
PROGRESS NOTE DATE OF SERVICE: 04/26/2024 SUBJECTIVE: This 68-year-old woman was admitted with acute UTI and sepsis, is being closely monitored. Cultures are showing E coli from the blood culture and gram-negative bacilli. No chest pain, no palpitation. PAST MEDICAL HISTORY: Reviewed. REVIEW OF SYSTEMS: A 14-point review is negative except as mentioned earlier. OBJECTIVE: VITAL SIGNS: Pulse is 70, blood pressure 170/69, respirations 18. CHEST: Few scattered rhonchi and crackles. ABDOMEN: Soft. NERVOUS SYSTEM: Nonfocal. LABS: WBC 13.54. ASSESSMENT: 1. Acute UTI with sepsis present on admission with E coli. 2. Elevated creatine kinase. 3. Troponin 0.637. Rule out acute flh-VC-oemubfz-elevation myocardial infarction. 4. Increased WBC. 5. Diabetes mellitus type 2, uncontrolled. 6. Hyponatremia. 7. Hypokalemia. 8. Rheumatoid arthritis multiple complex medications. RECOMMENDATIONS: Recommended to continue current medications, continue symptomatic treatment. Otherwise, we will taper the steroids at this time. Otherwise, I would also recommend closely follow with multiple consultants including Infectious Disease. Guarded prognosis. Further recommendations to follow. Overall prognosis is extremely guarded because of multiple complex medical issues involved. I will repeat blood cultures and continue to monitor. CAT scan of the abdomen and pelvis will be ordered also if it is not done previously. MMODL / IJN: [id number] /
[2024-04-27 06:09] LABS: Glucose,Whole Blood 250 mg/dL (70-110)
--- NOTE | 2024-04-27 09:24 | P.CONS ---
History of Present Illness - Reason for Consult Consult date: 04/26/24 Sepsis Requesting physician: Diana Connolly - Chief Complaint Mental status changes x 1 day - History of Present Illness Patient is a 68-year-old female with a past medical history significant for diabetes mellitus fibromyalgia rheumatoid arthritis patient has been brought into the hospital 2 days ago for evaluation of weakness and the patient was not acting herself as reported by the daughter patient denies having any headache or URI symptoms denies having any chest pain shortness of breath or cough patient denies having any nausea no vomiting no abdominal pain or any diarrhea on presentation to the hospital patient did have a fever of 101.2 F patient was not tachycardic hypotensive or hypoxic and no need for supplemental oxygen patient did have white count of 13.8 which is 13.4 today creatinine 0.9 liver isms are normal urine is positive, blood cultures came back positive with an E. coli prompting this consultation patient currently mention feeling better since presentation to the hospital Review of Systems Positive point and negatives has been mentioned in the HPI, complete review of systems was performed and all other systems are negative Past Medical History Past Medical History: Diabetes Mellitus, Fibromyalgia, Rheumatoid Arthritis (RA) History of Any Multi-Drug Resistant Organisms: None Reported Past Surgical History: Tubal Ligation Past Anesthesia/Blood Transfusion Reactions: No Reported Reaction Past Psychological History: No Psychological Hx Reported Smoking Status: Current every day smoker Past Alcohol Use History: None Reported Past Drug Use History: None Reported Medications and Allergies Home Medications Medication Instructions Recorded Confirmed Type metFORMIN HCL [Glucophage] 500 mg PO BID PRN 06/18/14 04/24/24 History Aspirin 81 mg PO DAILY 04/24/24 04/24/24 History Atorvastatin [Lipitor] 40 mg PO HS 04/24/24 04/24/24 History Clopidogrel [Plavix] 75 mg PO DAILY 04/24/24 04/24/24 History Loratadine [Claritin] 10 mg PO DAILY 04/24/24 04/24/24 History Trospium Chloride 20 mg PO DAILY 04/24/24 04/24/24 History Ciprofloxacin HCl [Cipro] 500 mg PO Q12HR 10 Days #20 tab 04/29/24 Rx Insulin Detemir (Levemir) [Levemir] 10 unit SQ DAILY #10 ml 04/29/24 Rx Pantoprazole [Protonix] 40 mg PO AC-BRKFST 10 Days #10 tab 04/29/24 Rx amLODIPine [Norvasc] 5 mg PO DAILY #30 tab 04/29/24 Rx lisinopriL [Zestril] 10 mg PO DAILY #30 tab 04/29/24 Rx predniSONE 10 mg PO DIRECTED #9 tab 04/29/24 Rx Allergies Allergy/AdvReac Type Severity Reaction Status Date / Time clarithromycin [From Biaxin] Allergy Rash/Hives Verified 04/24/24 12:41 Physical Exam Vitals: Vital Signs Temp Pulse Resp BP Pulse Ox 04/26/24 13:30 97.7 F 71 17 150/72 95 04/26/24 07:45 97.8 F 70 18 172/69 98 04/26/24 02:23 97.4 F L 69 16 144/73 91 L 04/25/24 20:00 97.9 F 64 18 146/70 94 L Intake and Output 04/25/24 04/26/24 04/26/24 22:59 06:59 14:59 Other: Voiding Method Diaper Incontinent # Voids 1 3 GENERAL DESCRIPTION: Elderly female lying in bed, no distress. No tachypnea or accessory muscle of respiration use. HEENT: Shows Pallor , no scleral icterus. Oral mucous membrane is dry. No pharyngeal erythema or thrush NECK: Trachea central, no thyromegaly. LUNGS: Unlabored breathing. Clear to auscultation anteriorly. No wheeze or crackle. HEART: S1, S2, regular rate and rhythm. No loud murmur ABDOMEN: Soft, no tenderness , guarding or rigidity, no organomegaly EXTREMITIES: No edema of feet. SKIN: No rash, no masses palpable. NEUROLOGICAL: The patient is awake, alert, oriented x3, mood and affect normal. Results CBC & Chem 7: 04/29/24 09:48 04/28/24 03:15 Labs: Abnormal Lab Results - Last 24 Hours (Table) 04/25/24 04/25/24 04/25/24 Range/Units 15:19 16:20 20:46 WBC (4.50-10.00) X 10*3/uL RBC (4.10-5.20) X 10*6/uL Hgb (12.0-15.0) g/dL Hct (37.2-46.3) % Immature Gran # (0.00-0.04) X 10*3/uL Neutrophils # (1.80-7.70) X 10*3/uL Lymphocytes # (0.90-5.00) X 10*3/uL Eosinophils # (0.04-0.35) X 10*3/uL Carbon Dioxide (21.6-31.8) mmol/L Anion Gap (4.00-12.00) mmol/L BUN/Creatinine Ratio (12.00-20.00) Ratio Glucose (70-110) mg/dL POC Glucose (mg/dL) 475 H 259 H (70-110) mg/dL Calcium (8.7-10.3) mg/dL Troponin I 0.620 H* (0.000-0.034) ng/mL 04/26/24 04/26/24 04/26/24 Range/Units 04:03 04:03 05:46 WBC 13.54 H (4.50-10.00) X 10*3/uL RBC 3.30 L (4.10-5.20) X 10*6/uL Hgb 10.3 L (12.0-15.0) g/dL Hct 30.7 L (37.2-46.3) % Immature Gran # 0.05 H (0.00-0.04) X 10*3/uL Neutrophils # 12.29 H (1.80-7.70) X 10*3/uL Lymphocytes # 0.81 L (0.90-5.00) X 10*3/uL Eosinophils # 0 L (0.04-0.35) X 10*3/uL Carbon Dioxide 20.1 L (21.6-31.8) mmol/L Anion Gap 13.90 H (4.00-12.00) mmol/L BUN/Creatinine Ratio 24.33 H (12.00-20.00) Ratio Glucose 265 H (70-110) mg/dL POC Glucose (mg/dL) 288 H (70-110) mg/dL Calcium 8.4 L (8.7-10.3) mg/dL Troponin I (0.000-0.034) ng/mL 04/26/24 Range/Units 12:11 WBC (4.50-10.00) X 10*3/uL RBC (4.10-5.20) X 10*6/uL Hgb (12.0-15.0) g/dL Hct (37.2-46.3) % Immature Gran # (0.00-0.04) X 10*3/uL Neutrophils # (1.80-7.70) X 10*3/uL Lymphocytes # (0.90-5.00) X 10*3/uL Eosinophils # (0.04-0.35) X 10*3/uL Carbon Dioxide (21.6-31.8) mmol/L Anion Gap (4.00-12.00) mmol/L BUN/Creatinine Ratio (12.00-20.00) Ratio Glucose (70-110) mg/dL POC Glucose (mg/dL) 269 H (70-110) mg/dL Calcium (8.7-10.3) mg/dL Troponin I (0.000-0.034) ng/mL Microbiology - Last 24 Hours (Table) 04/24/24 13:35 Blood Culture Gram Stain - Preliminary Blood Blood Culture - Preliminary Escherichia coli Molecular ID 04/24/24 11:12 Urine Culture - Preliminary Urine,Voided Gram Neg Bacilli 04/24/24 13:50 Blood Culture - Preliminary Blood Assessment and Plan (1) Positive blood culture Status: Acute Code(s): R78.81 - BACTEREMIA SNOMED Code(s): 610310658 (2) Sepsis Status: Acute Code(s): A41.9 - SEPSIS, UNSPECIFIED ORGANISM SNOMED Code(s): 32691934 (3) UTI (urinary tract infection) Status: Acute Code(s): N39.0 - URINARY TRACT INFECTION, SITE NOT SPECIFIED SNOMED Code(s): 04119765 Plan: 1patient presented to hospital with sepsis in this patient who did have a fever elevated white count source likely urinary did have a positive UA. 2patient with E. coli bacteremia source likely urinary. 3await CT of abdominal pelvis to make sure no evidence of any obstructive uropathy that may need further workup. 4for now the patient will be treated with Rocephin 2 g daily while waiting for the sensitivity to finalize. Multiple question concern answered. We will follow on clinical condition and cultures to further adjust medication if needed Thank you for this consultation we will follow the patient along with you Dictation was produced using [employer]ighter[employer] software. please excuse any grammatical, word or spelling errors. Time with Patient: Greater than 30
[2024-04-27 10:45] LABS: Glucose,Whole Blood 269 mg/dL (70-110)
[2024-04-27 10:54] LABS: Basophils # (A) 0.02 X 10*3/uL (0.00-0.10); Basophils % (A) 0.2 %; Eosinophils # (A) 0 X 10*3/uL (0.04-0.35); Eosinophils % (A) 0 %; HCT 31.4 % (37.2-46.3); HGB 10.4 g/dL (12.0-15.0); Lymphocytes # (A) 1.45 X 10*3/uL (0.90-5.00); Lymphocytes % (A) 11.3 %; MCH 30.4 pg (27.0-32.0); MCHC 33.1 g/dL (32.0-37.0); MCV 91.8 FL (80.0-97.0); Mean Platelet Volume 10.9 FL (9.5-12.2); Monocytes # (A) 0.49 X 10*3/uL (0.20-1.00); Monocytes % (A) 3.8 %; NRBC Per 100 WBC 0 X 10*3/uL (0.00-0.01); Neutrophils # (A) 10.72 X 10*3/uL (1.80-7.70); Neutrophils % (A) 83.9 %; Platelet Count 193 X 10*3/uL (140-440); RBC 3.42 X 10*6/uL (4.10-5.20); RDW 14.6 % (11.5-14.5); WBC 12.78 X 10*3/uL (4.50-10.00)
[2024-04-27 10:59] LABS: ALT 26 U/L (8-44); AST 23 U/L (13-35); Albumin/Globulin Ratio 1.25 Ratio (1.60-3.17); Alkaline Phosphatase 102 U/L (41-126); BUN/Creat Ratio 27.56 Ratio (12.00-20.00); Blood Urea Nitrogen 24.8 mg/dL (9.0-27.0); Calcium 8.7 mg/dL (8.7-10.3); Carbon Dioxide 22.2 mmol/L (21.6-31.8); Chloride 104 mmol/L (96-109); Globulin 2.4 g/dL (1.6-3.3); Glucose 243 mg/dL (70-110); Potassium 3.7 mmol/L (3.5-5.5); Sodium 138 mmol/L (135-145); Total Bilirubin <0.2 mg/dL (0.3-1.2); Total Protein 5.4 g/dL (6.2-8.2)
[2024-04-27] MEDS: lisinopriL 10 MG TAB PO SCH (11:28)
[2024-04-27 17:51] LABS: Glucose,Whole Blood 354 mg/dL (70-110)
[2024-04-27 20:44] LABS: Glucose,Whole Blood 314 mg/dL (70-110)
--- NOTE | 2024-04-27 22:52 | PN ---
PROGRESS NOTE DATE OF SERVICE: 04/27/2024 SUBJECTIVE: This is a 68-year-old woman, who was admitted with acute UTI with sepsis, also had E coli grown from the culture. The CAT scan, which I ordered yesterday showed no evidence of any obstructive uropathy and renal calculi was noted and trace bilateral pleural effusion noted. OBJECTIVE: VITAL SIGNS: Pulse is 50, blood pressure 161/70, respirations 18. CHEST: A few scattered rhonchi. ABDOMEN: Soft. NERVOUS SYSTEM: Nonfocal. LABORATORY DATA: WBC 12.78. Cultures are as mentioned earlier. ASSESSMENT: 1. Acute urinary tract infection with sepsis present on admission with Escherichia coli. 2. Renal calculi. 3. Elevated creatinine. 4. Troponin 0.637. Rule out acute wge-MO-ycjkurt-elevation myocardial infarction. 5. Increased WBC. 6. Diabetes mellitus, type 2, uncontrolled. 7. Hyponatremia. 8. Hypokalemia. RECOMMENDATIONS: Recommended to continue current management. Continue symptomatic treatment. White count is slightly elevated. We will continue with IV antibiotics, Infectious Disease evaluation, and guarded prognosis. Further recommendations to follow. See orders for further details. MMODL / IJN: [id number] /
[2024-04-28 04:59] LABS: Parvovirus B-19 IgG Antibodies 4.84 INDEX (<=0.90); Parvovirus B-19 IgM Antibodies 0.19 INDEX (<=0.90)
[2024-04-28 06:07] LABS: Glucose,Whole Blood 98 mg/dL (70-110)
[2024-04-28 08:42] LABS: HCT 32.9 % (37.2-46.3); HGB 10.9 g/dL (12.0-15.0); MCH 30.9 pg (27.0-32.0); MCHC 33.1 g/dL (32.0-37.0); MCV 93.2 FL (80.0-97.0); Mean Platelet Volume 10.9 FL (9.5-12.2); NRBC Per 100 WBC 0 X 10*3/uL (0.00-0.01); Platelet Count 199 X 10*3/uL (140-440); RBC 3.53 X 10*6/uL (4.10-5.20); RDW 14.5 % (11.5-14.5); WBC 14.19 X 10*3/uL (4.50-10.00)
[2024-04-28 08:59] LABS: BUN/Creat Ratio 31.12 Ratio (12.00-20.00); Blood Urea Nitrogen 24.9 mg/dL (9.0-27.0); Calcium 8.3 mg/dL (8.7-10.3); Carbon Dioxide 22.5 mmol/L (21.6-31.8); Chloride 108 mmol/L (96-109); Glucose 145 mg/dL (70-110); Potassium 3.6 mmol/L (3.5-5.5); Sodium 141 mmol/L (135-145)
[2024-04-28 09:43] LABS: Basophils % (A) 0.7 %; Eosinophils # (A) 0.01 X 10*3/uL (0.04-0.35); Eosinophils % (A) 0.1 %; Lymphocytes # (A) 3.01 X 10*3/uL (0.90-5.00); Lymphocytes % (A) 21.2 %; Monocytes % (A) 5.6 %; Neutrophils # (A) 9.87 X 10*3/uL (1.80-7.70); Neutrophils % (A) 69.6 %
--- NOTE | 2024-04-28 10:56 | P.PN ---
Subjective This is a pleasant 68 years old female with past medical history of multiple medical problems She came to the hospital because her daughter she was more lethargic and confused, patient states she was loopy when she came in However she had no urinary symptoms. Patient was found to have E. coli bacteremia secondary mostly to E. coli urinary tract infection Ultrasound showing bilateral nonobstructive renal calculi Currently patient on ceftriaxone Repeat blood culture from yesterday showing no growth in 24 hours but not final yet Electrophysiology Nurse Practitioner also evaluated the patient for accelerated junctional rhythm and currently her rate is controlled Cardiology is already cleared the patient for discharge Objective - Vital Signs Vital signs: Vital Signs Temp 97.4 F L 04/28/24 07:02 Pulse 52 L 04/28/24 07:02 Resp 17 04/28/24 07:53 BP 161/66 04/28/24 07:02 Pulse Ox 95 04/28/24 07:02 FiO2 Intake & Output 04/27/24 04/28/24 04/28/24 18:59 06:59 18:59 Other: Voiding Method Diaper Incontinent # Voids 2 2 - Exam GENERAL: The patient is alert and oriented x3, not in any acute distress. Well developed, well nourished. HEENT: Pupils are round and equally reacting to light. EOMI. No scleral icterus. No conjunctival pallor. Normocephalic, atraumatic. No pharyngeal erythema. No thyromegaly. CARDIOVASCULAR: S1 and S2 present. No murmurs, rubs, or gallops. PULMONARY: Chest is clear to auscultation, no wheezing , no crackles. ABDOMEN: Soft, nontender, nondistended, normoactive bowel sounds. No palpable organomegaly. MUSCULOSKELETAL: No joint swelling or deformity. EXTREMITIES: No cyanosis, clubbing, or pedal edema. NEUROLOGICAL: Gross neurological examination did not reveal any focal deficits. SKIN: No rashes. no petechiae. - Labs CBC & Chem 7: 04/28/24 03:15 04/28/24 03:15 Labs: Abnormal Lab Results - Last 24 Hours (Table) 04/26/24 04/27/24 04/27/24 Range/Units 13:27 06:38 06:38 WBC 12.78 H (4.50-10.00) X 10*3/uL RBC 3.42 L (4.10-5.20) X 10*6/uL Hgb 10.4 L (12.0-15.0) g/dL Hct 31.4 L (37.2-46.3) % RDW 14.6 H (11.5-14.5) % Immature Gran # 0.10 H (0.00-0.04) X 10*3/uL Neutrophils # 10.72 H (1.80-7.70) X 10*3/uL Eosinophils # 0 L (0.04-0.35) X 10*3/uL BUN/Creatinine Ratio 27.56 H (12.00-20.00) Ratio Glucose 243 H (70-110) mg/dL POC Glucose (mg/dL) (70-110) mg/dL Calcium (8.7-10.3) mg/dL Total Bilirubin <0.2 L (0.3-1.2) mg/dL Total Protein 5.4 L (6.2-8.2) g/dL Albumin 3.0 L (3.8-4.9) g/dL Albumin/Globulin Ratio 1.25 L (1.60-3.17) Ratio Parvovirus B19 IgG Ab 4.84 H (<=0.90) INDEX 04/27/24 04/27/24 04/28/24 Range/Units 17:48 20:41 03:15 WBC 14.19 H (4.50-10.00) X 10*3/uL RBC 3.53 L (4.10-5.20) X 10*6/uL Hgb 10.9 L (12.0-15.0) g/dL Hct 32.9 L (37.2-46.3) % RDW (11.5-14.5) % Immature Gran # 0.40 H (0.00-0.04) X 10*3/uL Neutrophils # 9.87 H (1.80-7.70) X 10*3/uL Eosinophils # 0.01 L (0.04-0.35) X 10*3/uL BUN/Creatinine Ratio (12.00-20.00) Ratio Glucose (70-110) mg/dL POC Glucose (mg/dL) 354 H 314 H (70-110) mg/dL Calcium (8.7-10.3) mg/dL Total Bilirubin (0.3-1.2) mg/dL Total Protein (6.2-8.2) g/dL Albumin (3.8-4.9) g/dL Albumin/Globulin Ratio (1.60-3.17) Ratio Parvovirus B19 IgG Ab (<=0.90) INDEX 04/28/24 Range/Units 03:15 WBC (4.50-10.00) X 10*3/uL RBC (4.10-5.20) X 10*6/uL Hgb (12.0-15.0) g/dL Hct (37.2-46.3) % RDW (11.5-14.5) % Immature Gran # (0.00-0.04) X 10*3/uL Neutrophils # (1.80-7.70) X 10*3/uL Eosinophils # (0.04-0.35) X 10*3/uL BUN/Creatinine Ratio 31.12 H (12.00-20.00) Ratio Glucose 145 H (70-110) mg/dL POC Glucose (mg/dL) (70-110) mg/dL Calcium 8.3 L (8.7-10.3) mg/dL Total Bilirubin (0.3-1.2) mg/dL Total Protein (6.2-8.2) g/dL Albumin (3.8-4.9) g/dL Albumin/Globulin Ratio (1.60-3.17) Ratio Parvovirus B19 IgG Ab (<=0.90) INDEX Microbiology - Last 24 Hours (Table) 04/26/24 13:27 Blood Culture - Preliminary Blood 04/24/24 13:50 Blood Culture - Preliminary Blood 04/24/24 13:35 Blood Culture Gram Stain - Final Blood Blood Culture - Final Escherichia coli Molecular ID Assessment and Plan Assessment: Acute urinary tract infection secondary to E. coli E. coli bacteremia Bilateral nonobstructing renal calculi Accelerated junctional rhythm Diabetes mellitus with hyperglycemia Hypertension Plan: Continue with ceftriaxone Follow-up repeat blood culture ID team on the case Cardiology cleared the patient for discharge Labs and medication were reviewed.. Continue same treatment. Continue with symptomatic treatment. Resume home medication. Monitor labs and vitals. DVT and GI prophylaxis. Further recommendations as per clinical course of the patient DVT prophylaxis: Subcutaneous heparin GI Prophylaxis: Ppi Prognosis is guarded
[2024-04-28 11:26] LABS: Glucose,Whole Blood 161 mg/dL (70-110)
--- NOTE | 2024-04-28 14:46 | P.PN ---
Subjective Progress Note Date: 04/27/24 Principal diagnosis: Reason for follow-up is E. coli UTI and bacteremia Patient is a 68-year-old female with a past medical history significant for diabetes mellitus fibromyalgia rheumatoid arthritis patient has been brought into the hospital for evaluation of weakness mental status changes diagnosed with sepsis secondary UTI did have E. coli bacteremia. Abdominal pelvis CT no evidence of obstructive uropathy. On today's evaluation that is 04/27/2024,the patient did have resolution of her fever denies any fever or any chills, patient is breathing comfortably on room air, the patient denies chest pain shortness of breath and no significant cough, patient denies abdominal pain, no nausea vomiting or diarrhea. Patient white count is down to 12.78, creatinine 0.9 blood and urine with E. coli sensitive pathogen Objective - Vital Signs Vital signs: Vital Signs Temp 97.4 F L 04/27/24 07:10 Pulse 52 L 04/27/24 08:55 Resp 16 04/27/24 08:55 BP 142/72 04/27/24 08:55 Pulse Ox 94 L 04/27/24 07:10 FiO2 Intake & Output 04/26/24 04/27/24 04/27/24 18:59 06:59 18:59 Other: Voiding Method Diaper Diaper Incontinent Incontinent # Voids 3 2 - Exam GENERAL DESCRIPTION: An elderly female lying in bed in no distress RESPIRATORY SYSTEM: Unlabored breathing , decreased breath sounds at bases HEART: S1 S2 regular rate and rhythm , ABDOMEN: Soft , no tenderness EXTREMITIES: No edema feet - Labs CBC & Chem 7: 04/28/24 03:15 04/28/24 03:15 Labs: Abnormal Lab Results - Last 24 Hours (Table) 04/26/24 04/26/24 04/27/24 Range/Units 16:47 21:30 06:07 WBC (4.50-10.00) X 10*3/uL RBC (4.10-5.20) X 10*6/uL Hgb (12.0-15.0) g/dL Hct (37.2-46.3) % RDW (11.5-14.5) % Immature Gran # (0.00-0.04) X 10*3/uL Neutrophils # (1.80-7.70) X 10*3/uL Eosinophils # (0.04-0.35) X 10*3/uL BUN/Creatinine Ratio (12.00-20.00) Ratio Glucose (70-110) mg/dL POC Glucose (mg/dL) 324 H 360 H 250 H (70-110) mg/dL Total Bilirubin (0.3-1.2) mg/dL Total Protein (6.2-8.2) g/dL Albumin (3.8-4.9) g/dL Albumin/Globulin Ratio (1.60-3.17) Ratio 04/27/24 04/27/24 04/27/24 Range/Units 06:38 06:38 10:44 WBC 12.78 H (4.50-10.00) X 10*3/uL RBC 3.42 L (4.10-5.20) X 10*6/uL Hgb 10.4 L (12.0-15.0) g/dL Hct 31.4 L (37.2-46.3) % RDW 14.6 H (11.5-14.5) % Immature Gran # 0.10 H (0.00-0.04) X 10*3/uL Neutrophils # 10.72 H (1.80-7.70) X 10*3/uL Eosinophils # 0 L (0.04-0.35) X 10*3/uL BUN/Creatinine Ratio 27.56 H (12.00-20.00) Ratio Glucose 243 H (70-110) mg/dL POC Glucose (mg/dL) 269 H (70-110) mg/dL Total Bilirubin <0.2 L (0.3-1.2) mg/dL Total Protein 5.4 L (6.2-8.2) g/dL Albumin 3.0 L (3.8-4.9) g/dL Albumin/Globulin Ratio 1.25 L (1.60-3.17) Ratio Microbiology - Last 24 Hours (Table) 04/24/24 13:35 Blood Culture Gram Stain - Final Blood Blood Culture - Final Escherichia coli Molecular ID 04/24/24 11:12 Urine Culture - Final Urine,Voided Escherichia coli 04/24/24 13:50 Blood Culture - Preliminary Blood Assessment and Plan (1) Positive blood culture Current Visit: Yes Status: Acute Code(s): R78.81 - BACTEREMIA SNOMED Code(s): 463776497 (2) UTI (urinary tract infection) Current Visit: Yes Status: Acute Code(s): N39.0 - URINARY TRACT INFECTION, SITE NOT SPECIFIED SNOMED Code(s): 18850990 Plan: 1patient presented to hospital with sepsis in this patient who did have a fever elevated white count source likely urinary did have a positive UA. 2patient with E. coli bacteremia source likely urinary. 3patient did have CT of abdominal pelvis and no evidence of any obstructive uropathy did have bilateral renal stone nonobstructive 4patient to continue with Rocephin 2 g daily and monitor clinical course closely Dictation was produced using [employer] dictation software. please excuse any grammatical, word or spelling errors. Time with Patient: Less than 30
--- NOTE | 2024-04-28 14:47 | P.PN ---
Subjective Progress Note Date: 04/28/24 Principal diagnosis: Reason for follow-up is E. coli UTI and bacteremia Patient is a 68-year-old female with a past medical history significant for diabetes mellitus fibromyalgia rheumatoid arthritis patient has been brought into the hospital for evaluation of weakness mental status changes diagnosed with sepsis secondary UTI did have E. coli bacteremia. Abdominal pelvis CT no evidence of obstructive uropathy. On today's evaluation that is 04/28/2024,the patient remains to be afebrile, patient is on room air not requiring supplemental oxygen and denies any shortn ess of breath no chest pain or cough.Patient denies having any nausea or vomiting, no abdominal pain and no diarrhea has been reported. Patient white count slightly up to 14.19 today creatinine is 0.8 Objective - Vital Signs Vital signs: Vital Signs Temp 97.4 F L 04/28/24 07:02 Pulse 52 L 04/28/24 07:02 Resp 17 04/28/24 07:53 BP 161/66 04/28/24 07:02 Pulse Ox 95 04/28/24 07:02 FiO2 Intake & Output 04/27/24 04/28/24 04/28/24 18:59 06:59 18:59 Other: Voiding Method Diaper Incontinent # Voids 2 2 - Exam GENERAL DESCRIPTION: An elderly female lying in bed in no distress RESPIRATORY SYSTEM: Unlabored breathing , decreased breath sounds at bases HEART: S1 S2 regular rate and rhythm , ABDOMEN: Soft , no tenderness EXTREMITIES: No edema feet - Labs CBC & Chem 7: 04/28/24 03:15 04/28/24 03:15 Labs: Abnormal Lab Results - Last 24 Hours (Table) 04/26/24 04/27/24 04/27/24 Range/Units 13:27 17:48 20:41 WBC (4.50-10.00) X 10*3/uL RBC (4.10-5.20) X 10*6/uL Hgb (12.0-15.0) g/dL Hct (37.2-46.3) % Immature Gran # (0.00-0.04) X 10*3/uL Neutrophils # (1.80-7.70) X 10*3/uL Eosinophils # (0.04-0.35) X 10*3/uL BUN/Creatinine Ratio (12.00-20.00) Ratio Glucose (70-110) mg/dL POC Glucose (mg/dL) 354 H 314 H (70-110) mg/dL Calcium (8.7-10.3) mg/dL Parvovirus B19 IgG Ab 4.84 H (<=0.90) INDEX 04/28/24 04/28/24 04/28/24 Range/Units 03:15 03:15 11:25 WBC 14.19 H (4.50-10.00) X 10*3/uL RBC 3.53 L (4.10-5.20) X 10*6/uL Hgb 10.9 L (12.0-15.0) g/dL Hct 32.9 L (37.2-46.3) % Immature Gran # 0.40 H (0.00-0.04) X 10*3/uL Neutrophils # 9.87 H (1.80-7.70) X 10*3/uL Eosinophils # 0.01 L (0.04-0.35) X 10*3/uL BUN/Creatinine Ratio 31.12 H (12.00-20.00) Ratio Glucose 145 H (70-110) mg/dL POC Glucose (mg/dL) 161 H (70-110) mg/dL Calcium 8.3 L (8.7-10.3) mg/dL Parvovirus B19 IgG Ab (<=0.90) INDEX Microbiology - Last 24 Hours (Table) 04/26/24 13:27 Blood Culture - Preliminary Blood 04/24/24 13:50 Blood Culture - Preliminary Blood 04/24/24 13:35 Blood Culture Gram Stain - Final Blood Blood Culture - Final Escherichia coli Molecular ID Assessment and Plan (1) Positive blood culture Current Visit: Yes Status: Acute Code(s): R78.81 - BACTEREMIA SNOMED Code(s): 687037313 (2) UTI (urinary tract infection) Current Visit: Yes Status: Acute Code(s): N39.0 - URINARY TRACT INFECTION, SITE NOT SPECIFIED SNOMED Code(s): 93486584 Plan: 1patient presented to hospital with sepsis in this patient who did have a fever elevated white count source likely urinary did have a positive UA. 2patient with E. coli bacteremia source likely urinary. 3patient did have CT of abdominal pelvis and no evidence of any obstructive uropathy did have bilateral renal stone nonobstructive 4patient did have clinical improvement however white count slightly up today w ill be monitored closely for now continue with Rocephin 2 g daily and repeat a CBC with a.m. lab Dictation was produced using [employer] dictation software. please excuse any grammatical, word or spelling errors. Time with Patient: Less than 30
[2024-04-28 16:30] LABS: Glucose,Whole Blood 334 mg/dL (70-110)
[2024-04-28 20:06] LABS: Glucose,Whole Blood 328 mg/dL (70-110)
[2024-04-29 06:09] LABS: Glucose,Whole Blood 97 mg/dL (70-110)
[2024-04-29 10:24] LABS: HCT 37.5 % (34.0-46.0); HGB 12.5 gm/dL (11.4-16.0); MCH 31.1 pg (25.0-35.0); MCHC 33.4 g/dL (31.0-37.0); MCV 93.1 fL (80.0-100.0); Mean Platelet Volume 8.9; Platelet Count 374 k/uL (150-450); RBC 4.02 m/uL (3.80-5.40); RDW 14.3 % (11.5-15.5); WBC 16.4 k/uL (3.8-10.6)
[2024-04-29 11:24] LABS: Glucose,Whole Blood 180 mg/dL (70-110)
[2024-04-29] MEDS: amLODIPine 5 MG TAB PO SCH (14:44)
[2024-04-29 15:04] VITALS: BP 162/83; PULSE 77; RESP 18; TEMP 98.1
[2024-04-29 16:36] LABS: Glucose,Whole Blood 366 mg/dL (70-110)
--- NOTE | 2024-04-29 16:45 | CDI ---
Documentation Clarification Form Date: 04/29/2024 04:28:14 PM From: Liset Waggoner RN CCDS Phone: [phone] Admit Date: 04/24/2024 01:50:00 PM Patient Name: Debi Crocker Visit Number: [id number] Discharge Date: ATTENTION: The Clinical Documentation Specialists (CDI) and [facility] Coding Staff appreciate your assistance in clarifying documentation. Please respond to the clarification below the line at the bottom and electronically sign. The CDI & [facility] Coding staff will review the response and follow-up if needed. Please note: Queries are made part of the Legal Health Record. If you have any questions, please contact the author of this message via ITS. Dr. Emeka Orourke Sepsis is documented H&P 04/24 Medicine note 04/27, but is not noted in subsequent documentation. Clarification is requested. History/Risk Factors:68 year old female presents to the ED after being found on the ground confused. Medical History: DM2 and Hyponatremia. Clinical Indicators: VSS, 04/24: B/P 166/80; HR 94; Temp 101.2 F Oral; RR 18 Labs, 04/24: Wbc 13.8; Neutrophils 12.5 Urine Culture, 04/24: Escherichia coli Blood Culture, 04/24: Escherichia coli Molecular ID Treatment: 04/24 Ceftriaxone 2gm IVPB x 1; 04/24 Ceftriaxone 1gm IVPB x 1; 04/26 Ceftriaxone 2gm IVPB Q24H; 04/24 04/26 0.9NS 130cc/hr IV. Please clarify if the Sepsis is: [ ] Sepsis POA confirmed, remains under treatment [x ] Sepsis POA confirmed, resolved [ ] Sepsis ruled out [ ] Other condition, please specify [ ] Unable to determine (Template Last Revised: January 2021) MTDD
[2024-04-29] MEDS ORDERED: INSULIN DETEMIR (LEVEMIR) 100 UNIT/ML SYR SQ SCH (21:00)
--- NOTE | 2024-04-29 21:47 | P.DS ---
Providers Date of admission: 04/24/24 13:50 Attending physician: Gustavo Ozuna MD Consults: 04/26/24 13:22 Consult Physician Routine Consulting Provider: Connor Mejía Consult Reason/Comments: sepsis Do you want consulting provider notified?: Yes Primary care physician: Bryson Ansari [facility] Course: Diagnoses: Acute urinary tract infection secondary to E. coli E. coli bacteremia Bilateral nonobstructing renal calculi Accelerated junctional rhythm Diabetes mellitus with hyperglycemia Hypertension Hospital course: This is a pleasant 68 years old female with past medical history of multiple medical problems She came to the hospital because her daughter she was more lethargic and confused, patient states she was loopy when she came in However she had no urinary symptoms. Patient was found to have E. coli bacteremia secondary mostly to E. coli urinary tract infection Ultrasound showing bilateral nonobstructive renal calculi Currently patient on ceftriaxone Repeat blood culture from yesterday showing no growth in 48 hours Coal Getter also evaluated the patient for accelerated junctional rhythm and currently her rate is controlled Cardiology is already cleared the patient for discharge Today also infectious disease team cleared the patient For discharge f on oral Cipro Problems and management plan were discussed with the patient and he verbalized understanding and acceptance Patient was found stable and can be discharged home in guarded prognosis however he needs follow-up as an outpatient. Patient was instructed to follow up with PCP Dr. Ansari/Dr. Riley within one week and patient agrees Patient was instructed to follow-up with urologist Dr. Lewis in 1 to 2 weeks [address] disease [address] Mejía in 1 week after discharge and she agrees Discharge instructions were provided for the patient including program from and monitor her blood pressure and diabetes and she verbalized understanding and acceptance Physical exam Gen: patient is a AAOx3, no distress CVS: S1-S2, RRR, no murmur Lungs: B/L CTA, no wheezing Abdomen: soft, no distention, no tenderness, positive bowel sounds Extremity: no leg edema or induration Time spent more than 35 minutes Plan - Discharge Summary Discharge Rx Participant: No New Discharge Prescriptions: New Pantoprazole [Protonix] 40 mg PO AC-BRKFST 10 Days #10 tab Ciprofloxacin HCl [Cipro] 500 mg PO Q12HR 10 Days #20 tab Insulin Detemir (Levemir) [Levemir] 10 unit SQ DAILY #10 ml predniSONE 10 mg PO DIRECTED #9 tab lisinopriL [Zestril] 10 mg PO DAILY #30 tab amLODIPine [Norvasc] 5 mg PO DAILY #30 tab Continue metFORMIN HCL [Glucophage] 500 mg PO BID PRN PRN Reason: high BS, hold for bowel issues Clopidogrel [Plavix] 75 mg PO DAILY Loratadine [Claritin] 10 mg PO DAILY Aspirin 81 mg PO DAILY Atorvastatin [Lipitor] 40 mg PO HS Trospium Chloride 20 mg PO DAILY Discontinued lisinopriL [Zestril] 2.5 mg PO DAILY Discharge Medication List metFORMIN HCL [Glucophage] 500 mg PO BID PRN 06/18/14 [History] Aspirin 81 mg PO DAILY 04/24/24 [History] Atorvastatin [Lipitor] 40 mg PO HS 04/24/24 [History] Clopidogrel [Plavix] 75 mg PO DAILY 04/24/24 [History] Loratadine [Claritin] 10 mg PO DAILY 04/24/24 [History] Trospium Chloride 20 mg PO DAILY 04/24/24 [History] Ciprofloxacin HCl [Cipro] 500 mg PO Q12HR 10 Days #20 tab 04/29/24 [Rx] Insulin Detemir (Levemir) [Levemir] 10 unit SQ DAILY #10 ml 04/29/24 [Rx] Pantoprazole [Protonix] 40 mg PO AC-BRKFST 10 Days #10 tab 04/29/24 [Rx] amLODIPine [Norvasc] 5 mg PO DAILY #30 tab 04/29/24 [Rx] lisinopriL [Zestril] 10 mg PO DAILY #30 tab 04/29/24 [Rx] predniSONE 10 mg PO DIRECTED #9 tab 04/29/24 [Rx] Follow up Appointment(s)/Referral(s): Hunter Couch MD [STAFF PHYSICIAN] - 2 Weeks Sukhwinder Travis MD [REFERRING] - 1 Week (Building Equipment Inspector, diabetes ) [facility] [NON-STAFF] - As Needed (cane) Bryson Ansari DO [Primary Care Provider] - 1-2 days Connor Mejía MD [STAFF PHYSICIAN] - 1 Week Alfonzo Tidwell MD [STAFF PHYSICIAN] - 2 Weeks (Urologist for nonobstructing kidney stones, on both sides) Activity/Diet/Wound Care/Special Instructions: Diabetic test strip script at [facility]. Please picker machine operator prior to discharge. Heart healthy diet, low carbohydrate 1600 kcal/day Activity is restricted till you see your doctor We recommend to check your glucose/sugar 4 times a day, before each meal and at bedtime. Keep the results in a logbook and bring to your doctor on your appointment date If your glucose less than 70 or more than 400 call 911 or come to emergency room Discharge/Stand Alone Forms: Who Do I Call? Discharge Disposition: HOME WITH HOME HEALTH SERVICES
--- NOTE | 2024-04-30 14:57 | P.PN ---
Subjective Progress Note Date: 04/29/24 Principal diagnosis: Reason for follow-up is E. coli UTI and bacteremia Patient is a 68-year-old female with a past medical history significant for diabetes mellitus fibromyalgia rheumatoid arthritis patient has been brought into the hospital for evaluation of weakness mental status changes diagnosed with sepsis secondary UTI did have E. coli bacteremia. Abdominal pelvis CT no evidence of obstructive uropathy. On today's evaluation that is 04/29/2024, the patient continues to be afebrile, the patient is on room air and breathing comfortably, the Pt denies having any chest pain or cough, the patient denies having any abdominal pain no vomiting or any diarrhea has been reported by the nursing staff, patient mention feeling better wants to go home. Did have white count of 16.4 today, blood culture repeat has been negative Objective - Vital Signs Vital signs: Vital Signs Temp 97.5 F L 04/29/24 07:06 Pulse 46 L 04/29/24 07:06 Resp 16 04/29/24 08:19 BP 150/54 04/29/24 07:06 Pulse Ox 97 04/29/24 07:06 FiO2 Intake & Output 04/28/24 04/29/24 04/29/24 18:59 06:59 18:59 Intake Total 50 Balance 50 Intake: Intake, IV Titration 50 Amount cefTRIAXone 2 gm In 50 Sodium Chloride 0.9% 50 ml @ 100 mls/hr IVPB Q24HR [facility], [facility]–1983 Rx#:[id number] Other: # Voids 1 - Exam GENERAL DESCRIPTION: An elderly female lying in bed in no distress RESPIRATORY SYSTEM: Unlabored breathing , decreased breath sounds at bases HEART: S1 S2 regular rate and rhythm , ABDOMEN: Soft , no tenderness EXTREMITIES: No edema feet - Labs CBC & Chem 7: 04/29/24 09:48 04/28/24 03:15 Labs: Abnormal Lab Results - Last 24 Hours (Table) 04/28/24 04/28/24 04/29/24 Range/Units 16:29 20:02 09:48 WBC 16.4 H (3.8-10.6) k/uL POC Glucose (mg/dL) 334 H 328 H (70-110) mg/dL 04/29/24 Range/Units 11:22 WBC (3.8-10.6) k/uL POC Glucose (mg/dL) 180 H (70-110) mg/dL Microbiology - Last 24 Hours (Table) 04/26/24 13:27 Blood Culture - Preliminary Blood Assessment and Plan (1) Positive blood culture Status: Acute Code(s): R78.81 - BACTEREMIA SNOMED Code(s): 566647365 (2) UTI (urinary tract infection) Status: Acute Code(s): N39.0 - URINARY TRACT INFECTION, SITE NOT SPECIFIED SNOMED Code(s): 92986725 Plan: 1patient presented to hospital with sepsis in this patient who did have a fever elevated white count source likely urinary did have a positive UA. 2patient with E. coli bacteremia source likely urinary. 3patient did have CT of abdominal pelvis and no evidence of any obstructive uropathy did have bilateral renal stone nonobstructive 4patient did have clinical improvement and patient insisted on going home we will consider 10-day course of oral Cipro on discharge and close outpatient follow-up Dictation was produced using [employer] dictation software. please excuse any grammatical, word or spelling errors. Time with Patient: Less than 30
== END 2024-04-29 17:37 | disposition home health service (06) | DRG 872 ==
LOC: EC 10:27 → 4SSUR 13:50
PROVIDERS: ADMIT Internal Medicine; ATTEND Internal Medicine
DX: A41.51 Sepsis due to Escherichia coli [E. coli] (principal); N39.0 Urinary tract infection, site not specified; E87.1 Hypo-osmolality and hyponatremia; I45.89 Other specified conduction disorders; J90 Pleural effusion, not elsewhere classified; M79.89 Other specified soft tissue disorders; M06.9 Rheumatoid arthritis, unspecified; M79.7 Fibromyalgia; E87.6 Hypokalemia; I10 Essential (primary) hypertension; E11.65 Type 2 diabetes mellitus with hyperglycemia; F17.210 Nicotine dependence, cigarettes, uncomplicated; I48.91 Unspecified atrial fibrillation; N20.0 Calculus of kidney; I08.1 Rheumatic disorders of both mitral and tricuspid valves; W19.XXXA Unspecified fall, initial encounter; Z79.02 Long term (current) use of antithrombotics/antiplatelets; Z79.4 Long term (current) use of insulin; Z79.82 Long term (current) use of aspirin; Z79.84 Long term (current) use of oral hypoglycemic drugs; Z79.899 Other long term (current) drug therapy; Z88.1 Allergy status to other antibiotic agents; Z98.51 Tubal ligation status
CPT/HCPCS: 36415; 71046; 74176; 80048; 80053; 81001; 82550; 83036; 83605; 83735; 84439; 84443; 84484; 85025; 85027; 85652; 86140; 86431; 86658; 86747; 87040; 87077; 87086; 87186; 87636; 93005; 93308; 96361; 96374; 99291

== ENCOUNTER → 2024-08-19 | Outpatient (CLI) | payer MEDICARE ==
--- NOTE | 2024-08-19 14:00 | CTL ---
EXAMINATION TYPE: CT Low Dose Lung DATE OF EXAM ORDERED: 08/19/2024 HISTORY: History of tobacco use, current smoker, 42 pack-year history. Lung cancer screening CT DLP: 78.[address] CTDI: 2.2 mGy Automated exposure control for dose reduction was used. SCREENING VISIT: First screening visit COMPARISON: No direct comparisons TECHNIQUE: Low dose computed tomography scan was performed through the chest at 1 mm thick sections a nd reconstructed images in multiple planes at 1 mm and [address] DIAGNOSTIC QUALITY: Satisfactory FINDINGS: Nodules: No clinically significant pulmonary nodules. LUNGS: COPD: Severity: Minimal Fibrosis: Severity: None Lymph nodes: None Other findings: None RIGHT PLEURAL SPACE: Effusion: None Calcification: None Thickening: None Pneumothorax: None LEFT PLEURAL SPACE: Effusion: None Calcification: None Thickening: None Pneumothorax: None HEART: Heart Size: Normal Coronary Calcification: Moderate Pericardial Effusion: None OTHER FINDINGS: Upper abdomen: Gallbladder is surgically absent. Bony thorax: Mild multilevel degenerative disc disease of the visualized spine. Supraclavicular region: None Other: Mild to moderate atherosclerotic calcification of the aorta and its branches. IMPRESSION: No clinically significant pulmonary nodules. CT LUNG RAD AND CT CHEST RECOMMENDATION: Lung-Rad 1 Negative: Continue annual screening with LDCT in 12 months. S Modifier (other clinically significant findings): None [facility], , 08/19/2024 1:58 PM
== END | disposition home or self-care (01) ==
LOC: RADCTMAIN 13:24
PROVIDERS: ATTEND Family Medicine
DX: Z12.2 Encounter for screening for malignant neoplasm of respiratory organs (principal); F17.210 Nicotine dependence, cigarettes, uncomplicated
CPT/HCPCS: 71271

== ENCOUNTER 2024-09-23 12:24 | Inpatient (IN) | payer MEDICARE ==
[2024-09-23] MEDS: IPRATROPIUM-ALBUTEROL 3 ML NEB INHALATION STA (12:51)
--- NOTE | 2024-09-23 12:57 | ED ---
SOB HPI - General Chief Complaint: Shortness of Breath Stated Complaint: dizziness Time Seen by Provider: 09/23/24 12:32 Source: patient, family, RN notes reviewed Mode of arrival: wheelchair Limitations: no limitations - History of Present Illness Initial Comments: This is a 68-year-old female who presents to the emergency department for shortness of breath. Patient presents with her , who states that last week she was having URI symptoms with coughing and congestion. She went to urgent care 3 days ago and was diagnosed with bronchitis. She was started on antibiotics. Her states that she continues to get worse. She is having a lot of pain in her chest and back from all the coughing. She is also unable to control the coughing or congestion and is feeling increasingly short of breath. Unsure if she has had any fevers. She has had a reduced appetite and has been very weak. Denies any history of asthma or COPD. MD Complaint: shortness of breath, cough - Related Data Home Medications Medication Instructions Recorded Confirmed Atorvastatin [Lipitor] 40 mg PO DAILY 04/24/24 09/23/24 Clopidogrel [Plavix] 75 mg PO DAILY 04/24/24 09/23/24 Loratadine [Claritin] 10 mg PO DAILY 04/24/24 09/23/24 Trospium Chloride 20 mg PO DAILY 04/24/24 09/23/24 Doxycycline Hyclate 100 mg PO BID 09/23/24 09/23/24 Ergocalciferol (Vitamin D2) 1,250 mcg PO FR 09/23/24 09/23/24 [Drisdol (50,000 Iu)] Mometasone Furoate [Nasonex 50 MCG] 2 spray NASAL DAILY 09/23/24 09/23/24 Previous Rx's Medication Instructions Recorded amLODIPine [Norvasc] 5 mg PO DAILY #30 tab 04/29/24 lisinopriL [Zestril] 10 mg PO DAILY #30 tab 04/29/24 Allergies Allergy/AdvReac Type Severity Reaction Status Date / Time clarithromycin [From Biaxin] Allergy Rash/Hives Verified 09/23/24 14:59 Review of Systems ROS Statement: Those systems with pertinent positive or pertinent negative responses have been documented in the HPI. ROS Other: All systems not noted in ROS Statement are negative. Past Medical History Past Medical History: Diabetes Mellitus, Fibromyalgia, Rheumatoid Arthritis (RA) History of Any Multi-Drug Resistant Organisms: None Reported Past Surgical History: Tubal Ligation Past Anesthesia/Blood Transfusion Reactions: No Reported Reaction Past Psychological History: No Psychological Hx Reported Smoking Status: Current every day smoker Past Alcohol Use History: None Reported Past Drug Use History: None Reported General Exam Limitations: no limitations General appearance: alert, in no apparent distress Head exam: Present: atraumatic, normocephalic, normal inspection Respiratory exam: Present: rhonchi, decreased breath sounds, prolonged expiratory Cardiovascular Exam: Present: regular rate, normal rhythm, normal heart sounds. Absent: systolic murmur, diastolic murmur, rubs, gallop, clicks Neurological exam: Present: alert, oriented X3, CN II-XII intact Psychiatric exam: Present: normal affect, normal mood Skin exam: Present: warm, dry, intact, normal color. Absent: rash Course Vital Signs 09/23/24 09/23/24 09/23/24 12:25 12:51 12:58 Temperature 98.3 F Pulse Rate 81 69 74 Respiratory 24 Rate Blood Pressure 144/68 O2 Sat by Pulse 88 L Oximetry 09/23/24 09/23/24 09/23/24 13:29 13:41 16:06 Temperature 98.6 F 98.7 F Pulse Rate 74 73 Respiratory 24 24 18 Rate Blood Pressure 130/47 131/51 O2 Sat by Pulse 91 L 93 L Oximetry Medical Decision Making - Medical Decision Making This is a 68 year old female who presents to the emergency department for shortness of breath. Was pt. sent in by a medical professional or institution? @ -No Did you speak to anyone other than the patient for history? @ -Her provided the majority of the history. Did you review nursing and triage notes? @ -Yes, and I agree, it is accurate with regards to the patient's symptoms. Were old charts reviewed? @ -No Differential Diagnosis? @ -Differential Dyspnea: Coronary syndrome, arrhythmia, tamponade, asthma, COPD, pulmonary embolism, pneumonia, pneumothorax, pulmonary effusion, anaphylaxis, diabetic ketoacidosis, flailed chest, pulmonary contusion, diaphragmatic rupture, anemia, neuromuscular, this is not meant to be an all-inclusive list. EKG interpreted by me (3pts min.)? @ -EKG interpreted by me demonstrating the following: Sinus rhythm. Ventricular rate 68 bpm, MD interval 148 ms, QRS duration 94 ms, QTc 435 ms. X-rays interpreted by me (1pt min.)? @ -Chest x-ray obtained. My interpretation identifies a possible infiltrate in the right lower lobe. CT interpreted by me (1pt min.)? @ -CT of the chest obtained. My interpretation identifies no evidence of a pulmonary embolus. U/S interpreted by me (1pt. min.)? @ -Not obtained What testing was considered but not performed? (CT, X-rays, U/S, labs)? Why? @ -None What meds were considered but not given? Why? @ -None Did you discuss the management of the patient with other professionals? @ -Yes, Dr. Mccullough, who accepts the patient for admission. Did you reconcile home meds? @ -Yes Was smoking cessation discussed for >3mins.? @ -I discussed smoking cessation for greater than 3 minutes. The risk of smoking were discussed with the patient including but not limited to risks of cancer, stroke, coronary artery disease and COPD. Also discussed with patient were multiple methods of quitting smoking. Lastly we discussed the financial cost of smoking. Was critical care preformed (if so, how long)? @ -No Were there social determinants of health that impacted care today? How? (Homelessness, low income, unemployed, alcoholism, drug addiction, transportat ion, low edu. Level, literacy, decrease access to med. care, usp, rehab)? @ -No Was there de-escalation of care discussed even if they declined? (Discuss DNR or withdrawal of care, Hospice)? @ -No What co-morbidities impacted this encounter? (DM, HTN, Smoking, COPD, CAD, Cancer, CVA, Hep., AIDS, mental health diagnosis, sleep apnea, morbid obesity)? @ -Smoking, DM Was patient admitted / discharged? @ -Admitted. Patient had an oxygen saturation in the mid to high 80s on room air when she arrived. Lab work demonstrates leukocytosis with a white blood cell count of 18.9. Lactic acid elevated at 2.2. Magnesium slightly low at 1.4 and D-dimer elevated at 0.93. COVID, influenza, and RSV testing negative. Chest x-ray demonstrates pulmonary vascular congestion, BNP only 247. There is also a possible early developing airspace disease at the periphery of the right base. CTA of the chest obtained for further evaluation as well as the elevated D-dimer. No evidence of a pulmonary embolus was identified. She has a 2 cm density at the peripheral anterolateral right midlung with enlarged mediastinal and right hilar adenopathy that may be related to an infectious etiology. Given the patient's respiratory symptoms with the leukocytosis, she was started on the pneumonia protocol. Patient has an allergy to macrolide antibiotics and was started on Levaquin. Blood and sputum cultures obtained. Patient admitted to medicine for possible pneumonia with hypoxia. Consult placed for pulmonology. Case discussed with ED attending Dr. Mehta. Undiagnosed new problem with uncertain prognosis? @ -None Drug Therapy requiring intensive monitoring for toxicity (Heparin, Nitro, Insulin, Cardizem)? @ -None Were any procedures done? @ -None Diagnosis/symptom? @ -Possible pneumonia with hypoxia Acute, or Chronic, or Acute on Chronic? @ -Acute Uncomplicated (without systemic symptoms) or Complicated (systemic symptoms)? @ -Complicated Side effects of treatment? @ -None Exacerbation, Progression, or Severe Exacerbation] @ -Not applicable Poses a threat to life or bodily function? @ -Yes, can lead to worsening respiratory function or septic shock, which can be fatal. - Lab Data Result diagrams: 09/23/24 13:21 09/23/24 13:21 Lab Results 09/23/24 09/23/24 09/23/24 Range/Units 13:21 13:21 13:21 WBC 18.9 H (3.8-10.6) k/uL RBC 4.37 (3.80-5.40) m/uL Hgb 13.9 (11.4-16.0) gm/dL Hct 40.7 (34.0-46.0) % MCV 93.2 (80.0-100.0) fL MCH 31.9 (25.0-35.0) pg MCHC 34.3 (31.0-37.0) g/dL RDW 12.3 (11.5-15.5) % Plt Count 208 (150-450) k/uL MPV 8.3 Neutrophils % 91 % Lymphocytes % 4 % Monocytes % 3 % Eosinophils % 1 % Basophils % 0 % Neutrophils # 17.3 H (1.3-7.7) k/uL Lymphocytes # 0.7 L (1.0-4.8) k/uL Monocytes # 0.6 (0-1.0) k/uL Eosinophils # 0.2 (0-0.7) k/uL Basophils # 0.1 (0-0.2) k/uL PT 10.1 (10.0-12.5) sec INR 0.9 (<1.2) APTT 26.2 (22.0-30.0) sec D-Dimer 0.93 H (<0.60) mg/L FEU Sodium 134 L (137-145) mmol/L Potassium 3.5 (3.5-5.1) mmol/L Chloride 101 (98-107) mmol/L Carbon Dioxide 24 (22-30) mmol/L Anion Gap 9 mmol/L BUN 24 H (7-17) mg/dL Creatinine 0.88 (0.52-1.04) mg/dL Est GFR (CKD-EPI)AfAm 78 (>60 ml/min/1.73 sqM) Est GFR (CKD-EPI)NonAf 67 (>60 ml/min/1.73 sqM) Glucose 189 H (74-99) mg/dL Lactic Ac Sepsis Rflx Plasma Lactic Acid Edgardo (0.7-2.0) mmol/L Calcium 9.2 (8.4-10.2) mg/dL Magnesium 1.4 L (1.6-2.3) mg/dL Total Bilirubin 0.8 (0.2-1.3) mg/dL AST 21 (14-36) U/L ALT 16 (4-34) U/L Alkaline Phosphatase 102 (38-126) U/L Troponin I (0.000-0.034) ng/mL NT-Pro-B Natriuret Pep 247 pg/mL Total Protein 7.1 (6.3-8.2) g/dL Albumin 4.1 (3.5-5.0) g/dL Influenza Type A (PCR) (Not Detectd) Influenza Type B (PCR) (Not Detectd) RSV (PCR) (Not Detectd) SARS-CoV-2 (PCR) (Not Detectd) 09/23/24 09/23/24 09/23/24 Range/Units 13:21 13:21 13:45 WBC (3.8-10.6) k/uL RBC (3.80-5.40) m/uL Hgb (11.4-16.0) gm/dL Hct (34.0-46.0) % MCV (80.0-100.0) fL MCH (25.0-35.0) pg MCHC (31.0-37.0) g/dL RDW (11.5-15.5) % Plt Count (150-450) k/uL MPV Neutrophils % % Lymphocytes % % Monocytes % % Eosinophils % % Basophils % % Neutrophils # (1.3-7.7) k/uL Lymphocytes # (1.0-4.8) k/uL Monocytes # (0-1.0) k/uL Eosinophils # (0-0.7) k/uL Basophils # (0-0.2) k/uL PT (10.0-12.5) sec INR (<1.2) APTT (22.0-30.0) sec D-Dimer (<0.60) mg/L FEU Sodium (137-145) mmol/L Potassium (3.5-5.1) mmol/L Chloride (98-107) mmol/L Carbon Dioxide (22-30) mmol/L Anion Gap mmol/L BUN (7-17) mg/dL Creatinine (0.52-1.04) mg/dL Est GFR (CKD-EPI)AfAm (>60 ml/min/1.73 sqM) Est GFR (CKD-EPI)NonAf (>60 ml/min/1.73 sqM) Glucose (74-99) mg/dL Lactic Ac Sepsis Rflx Y Plasma Lactic Acid Edgardo 2.2 H* (0.7-2.0) mmol/L Calcium (8.4-10.2) mg/dL Magnesium (1.6-2.3) mg/dL Total Bilirubin (0.2-1.3) mg/dL AST (14-36) U/L ALT (4-34) U/L Alkaline Phosphatase (38-126) U/L Troponin I <0.012 (0.000-0.034) ng/mL NT-Pro-B Natriuret Pep pg/mL Total Protein (6.3-8.2) g/dL Albumin (3.5-5.0) g/dL Influenza Type A (PCR) (Not Detectd) Influenza Type B (PCR) (Not Detectd) RSV (PCR) (Not Detectd) SARS-CoV-2 (PCR) (Not Detectd) 09/23/24 Range/Units 13:58 WBC (3.8-10.6) k/uL RBC (3.80-5.40) m/uL Hgb (11.4-16.0) gm/dL Hct (34.0-46.0) % MCV (80.0-100.0) fL MCH (25.0-35.0) pg MCHC (31.0-37.0) g/dL RDW (11.5-15.5) % Plt Count (150-450) k/uL MPV Neutrophils % % Lymphocytes % % Monocytes % % Eosinophils % % Basophils % % Neutrophils # (1.3-7.7) k/uL Lymphocytes # (1.0-4.8) k/uL Monocytes # (0-1.0) k/uL Eosinophils # (0-0.7) k/uL Basophils # (0-0.2) k/uL PT (10.0-12.5) sec INR (<1.2) APTT (22.0-30.0) sec D-Dimer (<0.60) mg/L FEU Sodium (137-145) mmol/L Potassium (3.5-5.1) mmol/L Chloride (98-107) mmol/L Carbon Dioxide (22-30) mmol/L Anion Gap mmol/L BUN (7-17) mg/dL Creatinine (0.52-1.04) mg/dL Est GFR (CKD-EPI)AfAm (>60 ml/min/1.73 sqM) Est GFR (CKD-EPI)NonAf (>60 ml/min/1.73 sqM) Glucose (74-99) mg/dL Lactic Ac Sepsis Rflx Plasma Lactic Acid Edgardo (0.7-2.0) mmol/L Calcium (8.4-10.2) mg/dL Magnesium (1.6-2.3) mg/dL Total Bilirubin (0.2-1.3) mg/dL AST (14-36) U/L ALT (4-34) U/L Alkaline Phosphatase (38-126) U/L Troponin I (0.000-0.034) ng/mL NT-Pro-B Natriuret Pep pg/mL Total Protein (6.3-8.2) g/dL Albumin (3.5-5.0) g/dL Influenza Type A (PCR) Not Detected (Not Detectd) Influenza Type B (PCR) Not Detected (Not Detectd) RSV (PCR) Not Detected (Not Detectd) SARS-CoV-2 (PCR) Not Detected (Not Detectd) - Radiology Data Radiology results: report reviewed, image reviewed Disposition Clinical Impression: Pneumonia, Hypoxia, Nicotine dependence Disposition: ADMITTED IP TO THIS HOSP Referrals: Irma Loo DO [Primary Care Provider] - 1-2 days
[2024-09-23 13:36] LABS: Basophils # (A) 0.1 k/uL (0-0.2); Basophils % (A) 0 %; Eosinophils # (A) 0.2 k/uL (0-0.7); Eosinophils % (A) 1 %; HCT 40.7 % (34.0-46.0); HGB 13.9 gm/dL (11.4-16.0); Lymphocytes # (A) 0.7 k/uL (1.0-4.8); Lymphocytes % (A) 4 %; MCH 31.9 pg (25.0-35.0); MCHC 34.3 g/dL (31.0-37.0); MCV 93.2 fL (80.0-100.0); Mean Platelet Volume 8.3; Monocytes # (A) 0.6 k/uL (0-1.0); Monocytes % (A) 3 %; Neutrophils # (A) 17.3 k/uL (1.3-7.7); Neutrophils % (A) 91 %; Platelet Count 208 k/uL (150-450); RBC 4.37 m/uL (3.80-5.40); RDW 12.3 % (11.5-15.5); WBC 18.9 k/uL (3.8-10.6)
[2024-09-23 13:42] LABS: ALT 16 U/L (4-34); AST 21 U/L (14-36); African American GFR (CKD) 78 (>60 ml/min/1.73 sqM); Albumin 4.1 g/dL (3.5-5.0); Alkaline Phosphatase 102 U/L (38-126); Anion Gap 9 mmol/L; Blood Urea Nitrogen 24 mg/dL (7-17); Calcium 9.2 mg/dL (8.4-10.2); Carbon Dioxide 24 mmol/L (22-30); Chloride 101 mmol/L (98-107); Glucose 189 mg/dL (74-99); Magnesium 1.4 mg/dL (1.6-2.3); Non-African American GFR(CKD) 67 (>60 ml/min/1.73 sqM); Potassium 3.5 mmol/L (3.5-5.1); Sodium 134 mmol/L (137-145); Total Bilirubin 0.8 mg/dL (0.2-1.3); Total Protein 7.1 g/dL (6.3-8.2)
[2024-09-23] MEDS: KETOROLAC 15 MG/ML 1 ML VIAL IVP STA (13:46)
[2024-09-23 13:48] LABS: NT-Pro-B-Type Natriuretic Pept 247 pg/mL
[2024-09-23] MEDS: SODIUM CHLORIDE 0.9% 1,000 ML IV STA ×2 (13:49→18:12)
[2024-09-23 13:52] LABS: INR 0.9 (<1.2); Partial Thromboplastin Time 26.2 sec (22.0-30.0); Prothrombin Time 10.1 sec (10.0-12.5)
--- NOTE | 2024-09-23 14:15 | XR ---
EXAMINATION TYPE: XR chest 2V DATE OF EXAM: 09/23/2024 COMPARISON: 04/24/2024 HISTORY: 68 year-old female shortness of breath, difficulty breathing TECHNIQUE: AP and lateral views FINDINGS: Heart upper limits of normal in size. Interstitial/vascular prominence. No sizable pleural effusion. Possible focal developing opacity periphery of the right base. IMPRESSION: 1. Heart upper limits of normal in size. Interstitial/vascular prominence. Correlate for mild CHF wit h pulmonary vascular congestion. 2. Possible early developing airspace disease at the periphery of the right base. [facility], , 09/23/2024 2:13 PM
--- NOTE | 2024-09-23 15:38 | CT ---
CTA CHEST EXAMINATION TYPE: CT chest angio for PE DATE OF EXAM: 09/23/2024 INDICATION: lorraine/cough, elevated d-dimer CT DLP: 288.8 mGycm, Automated exposure control for dose reduction was used. CONTRAST: Patient injected with 100 mL of Isovue 370. COMPARISON: 08/19/2024 TECHNIQUE: CT of the chest is performed on a spiral scan at 2 mm thick sections. Study is performed with intravenous contrast timed for evaluation for pulmonary embolism. This will limit additional po rtions of the evaluation. 3-D MIP images reconstructed by the technologist are reviewed on the compu ter in the coronal and sagittal planes. FINDINGS: No persistent filling defects are evident to suggest an acute pulmonary embolism. There is a 1.7 cm right peribronchial lymph node. Series 401 and 60. Subcarinal lymph node is present measuring 1.3 cm. A 1.0 cm pretracheal lymph node is present. Some right hilar adenopathy is present measuring 1.2 cm The ascending aorta diameter at the level of the main pulmonary artery is 3.1 cm. The main pulmonary artery diameter at the bifurcation is 3.4 cm. There is a 2.0 x 2.3 cm density in the periphery of the right lung, series 406 image 96. Given the sh ort interval finding, infectious etiology is favored within the differential. Neoplasm is not exclude d. Limited CT sections were through the upper abdomen. Large dense nonobstructing renal stone is in the posterior lateral right mid kidney and there are some vascular calcifications present at the bilater al kidneys. Nonobstructing punctate renal stone may be present on the left. Small cortical renal cyst s present on the left kidney. Gallbladder surgically absent. IMPRESSION: 1. No acute pulmonary embolism radiographically apparent. 2. A 2 cm density peripheral anterolateral right midlung with enlarged mediastinal and right hilar ad enopathy. Findings may be related to an infectious etiology. Neoplasm is not excluded. Additional wor kup is recommended. [facility], Workstation: [facility], 09/23/2024 3:36 PM
[2024-09-23] MEDS ORDERED: PNEUMONIA PROTOCOL UTILIZED 1 EACH MISC PO PRN (15:40)
[2024-09-23] MEDS ORDERED: IPRATROPIUM-ALBUTEROL 3 ML NEB INHALATION PRN (15:40)
[2024-09-23] MEDS ORDERED: IBUPROFEN 400 MG TAB PO PRN (15:52)
[2024-09-23] MEDS ORDERED: ONDANSETRON 4 MG/2 ML VIAL IVP PRN (15:52)
[2024-09-23] MEDS ORDERED: ACETAMINOPHEN TAB 325 MG TAB PO PRN (15:52)
[2024-09-23] MEDS ORDERED: MORPHINE SULFATE 4 MG/ML SYRINGE IV PRN (15:52)
[2024-09-23] MEDS ORDERED: NALOXONE 0.4 MG/ML 1 ML VIAL IV PRN (15:52)
[2024-09-23] MEDS: LEVOFLOXACIN 750MG-D5W PMX 750 MG in DEXTROSE/WATER 1 150ML.BAG IVPB STA (16:22)
[2024-09-23] MEDS: IPRATROPIUM-ALBUTEROL 3 ML NEB INHALATION SCH (17:57)
[2024-09-23] MEDS: KETOROLAC 15 MG/ML 1 ML VIAL IVP PRN (18:02)
[2024-09-23] MEDS: SODIUM CHLORIDE 0.9% 1,000 ML IV ONE (21:43)
[2024-09-23] MEDS: HYDROcodone/APAP 5-325MG 1 EACH TAB PO PRN (23:55)
[2024-09-24] MEDS: methylPREDNISolone SOD SUCCI 125 MG/2 ML VIAL IV SCH ×2 (02:04→08:11)
--- NOTE | 2024-09-24 05:34 | P.CNPUL ---
History of Present Illness Consult date: 09/24/24 Requesting physician: Carissa Ayoub Reason for consult: pneumonia Chief complaint: Progressively worsening shortness of breath last week History of present illness: Patient is a 68-year-old female with past medical history significant for h ypertension, hyperlipidemia, diabetes, COPD, and chronic ongoing tobacco dependence. Primary care provider is a PA, Tania Arroyo. On Saturday she went to a local urgent care center, diagnosed with bronchitis. Treated with antibiotics, doxycycline. Despite this, progressively worsened over the last several days. She presented the ED yesterday in some respiratory distress. Associated symptoms include nonproductive cough, chest congestion, reduced appetite, dry heaves. Reports right back pain/pleurisy. Chest CTA done on arrival did not show any acute pulmonary embolism. A 2 cm density peripheral anterolateral in the right midlung with associated adenopathy. Suspicious for infectious process given her symptoms. CBC: WBC count 18.9, hemoglobin 13.9, hematocrit 40.7, platelets 208. CMP: Sodium 134, potassium 3.5, chloride 101, s smiley bicarb 24, BUN 24, creatinine 0.88, glucose 189. Lactic's are elevated and trending around 3.7. Received a 2 L normal saline bolus in the ED, and continues on normal saline at 75 mL/h. Magnesium 1.4. LFTs unremarkable. Troponin less than 0.012. NT proBNP 247. Viral screen negative for influenza, RSV, COVID. Procalcitonin level was elevated at 1.02. She does have low-grade fever 99.8. She started on Levaquin in the ED. I am evaluating this patient in the emergency department, room 18. She is uncomfortable. She is dyspneic. Tachypneic. Conversational dyspnea 1-2 word phrases. She is on 6 L/min nasal cannula. SpO2 92%. Heart rate 67 bpm. Blood pressure 152/57 mmHg. Current temperature 99.3 F. She has some wheezing. With likely COPD exacerbation. Review of Systems Constitutional: Reports fever, Reports poor appetite, Denies weight gain, Denies weight loss Ears, nose, mouth and throat: Denies headache, Denies nasal congestion, Denies nasal discharge, Denies post-nasal drip, Denies sinus pain, Denies sinus pressure, Denies sore throat Cardiovascular: Denies chest pain, Denies leg edema, Denies orthopnea, Denies palpitations, Denies paroxysmal nocturnal dyspnea, Denies syncope Respiratory: Reports as per HPI Gastrointestinal: Reports loss of appetite, Reports nausea, Denies abdominal pain, Denies change in bowel habits, Denies constipation, Denies diarrhea, Denies vomiting Genitourinary: Denies dysuria Musculoskeletal: Denies limitation of motion Integumentary: Denies rash Neurological: Denies seizures, Denies syncope Psychiatric: Denies anxiety, Denies depression Past Medical History Past Medical History: Diabetes Mellitus, Fibromyalgia, Rheumatoid Arthritis (RA) History of Any Multi-Drug Resistant Organisms: None Reported Past Surgical History: Tubal Ligation Past Anesthesia/Blood Transfusion Reactions: No Reported Reaction Past Psychological History: No Psychological Hx Reported Smoking Status: Current every day smoker Past Alcohol Use History: None Reported Past Drug Use History: None Reported Medications and Allergies Home Medications Medication Instructions Recorded Confirmed Type Atorvastatin [Lipitor] 40 mg PO DAILY 04/24/24 09/23/24 History Clopidogrel [Plavix] 75 mg PO DAILY 04/24/24 09/23/24 History Loratadine [Claritin] 10 mg PO DAILY 04/24/24 09/23/24 History Trospium Chloride 20 mg PO DAILY 04/24/24 09/23/24 History amLODIPine [Norvasc] 5 mg PO DAILY #30 tab 04/29/24 09/23/24 Rx lisinopriL [Zestril] 10 mg PO DAILY #30 tab 04/29/24 09/23/24 Rx Doxycycline Hyclate 100 mg PO BID 09/23/24 09/23/24 History Ergocalciferol (Vitamin D2) 1,250 mcg PO FR 09/23/24 09/23/24 History [Drisdol (50,000 Iu)] Mometasone Furoate [Nasonex 50 MCG] 2 spray NASAL DAILY 09/23/24 09/23/24 History Allergies Allergy/AdvReac Type Severity Reaction Status Date / Time clarithromycin [From Biaxin] Allergy Rash/Hives Verified 09/23/24 14:59 Physical Exam Vitals: Vital Signs Temp Pulse Resp BP Pulse Ox 09/24/24 00:47 99.3 F 79 24 152/57 89 L 09/23/24 21:54 83 18 143/48 95 09/23/24 20:28 80 11 L 127/54 91 L 09/23/24 18:25 76 09/23/24 18:19 98.6 F 75 24 127/54 92 L 09/23/24 18:12 77 09/23/24 16:37 99.8 F H 76 20 135/47 92 L 09/23/24 16:06 98.7 F 73 18 131/51 93 L 09/23/24 13:41 24 09/23/24 13:29 98.6 F 74 24 130/47 91 L 09/23/24 12:58 74 09/23/24 12:51 69 09/23/24 12:25 98.3 F 81 24 144/68 88 L Intake and Output 09/23/24 09/23/24 09/24/24 14:59 22:59 06:59 Other: Weight 74.843 kg GENERAL EXAM: Alert, 68-year-old white female, restless, in some mild respiratory distress. HEAD: Normocephalic and atraumatic EYES: Normal reaction of pupils, equal size. NOSE: Clear with pink turbinates. THROAT: No erythema or exudates. NECK: No masses, no JVD. CHEST: No chest wall deformity. LUNGS: Equal air entry with expiratory wheezes heard bilaterally throughout. Right sided grating/pleural friction rub. On 6 L/min nasal cannula. SpO2 93%. Speaking into 1-2 word phrases. Tachypneic. CVS: S1 and S2 normal with no audible murmur, regular rhythm. No extra heart sounds ABDOMEN: No hepatosplenomegaly, active bowel sounds, no guarding or rigidity. SPINE: No scoliosis or deformity SKIN: No rashes CENTRAL NERVOUS SYSTEM: No focal deficits, tone is normal in all 4 extremities. EXTREMITIES: There is no peripheral edema, clubbing, or cyanosis. Peripheral pulses are intact. Results - Laboratory Findings CBC and BMP: 09/23/24 13:21 09/23/24 13:21 PT/INR, D-dimer PT 10.1 sec (10.0-12.5) 09/23/24 13:21 INR 0.9 (<1.2) 09/23/24 13:21 D-Dimer 0.93 mg/L FEU (<0.60) H 09/23/24 13:21 Abnormal lab findings: Abnormal Labs 10/09/23/24 09/23/24 13:21 13:21 13:21 WBC 18.9 H Neutrophils # 17.3 H Lymphocytes # 0.7 L D-Dimer 0.93 H Sodium 134 L BUN 24 H Glucose 189 H Plasma Lactic Acid Edgardo Magnesium 1.4 L C-Reactive Protein Procalcitonin 09/23/24 09/23/24 09/23/24 13:21 15:59 15:59 WBC Neutrophils # Lymphocytes # D-Dimer Sodium BUN Glucose Plasma Lactic Acid Edgardo 2.2 H* Magnesium C-Reactive Protein 6.70 H Procalcitonin 1.02 H 09/23/24 09/23/24 09/24/24 15:59 19:56 00:07 WBC Neutrophils # Lymphocytes # D-Dimer Sodium BUN Glucose Plasma Lactic Acid Edgardo 3.1 H* 3.7 H* 3.7 H* Magnesium C-Reactive Protein Procalcitonin - Diagnostic Findings Chest x-ray: image reviewed CT scan - chest: image reviewed Assessment and Plan Assessment: Right midlung community-acquired pneumonia Acute COPD exacerbation, secondary to above Acute hypoxemic respiratory failure, currently on 6 L nasal cannula, secondary to above Acute leukocytosis Lactic acidemia Hypertension History of hyperlipidemia Diabetes mellitus Chronic ongoing tobacco dependence, with over [id number] history History of rheumatoid arthritis Plan: Patient's medications, labs, imaging reviewed Continue supplemental oxygen, maintain oxygen saturation of 92% or greater Continue empiric antibiotics in the form of the Levaquin. Patient has allergy to macrolides. Viral screen negative for influenza, RSV, COVID Procalcitonin level elevated at 1.02. Start combination of bronchodilators [id number], Symbicort inhaler, and IV Solu-Medro No evidence of CO2 narcosis Smoking cessation counseling performed greater than 3 minutes Nicotine patch offered GI prophylaxis: Protonix We will continue to follow I have personally seen and examined the patient, performed the documentation and the assessment and plan as written. Number of minutes spent on the visit:20 Time with Patient: Greater than 30
[2024-09-24 05:57] LABS: Appearance,Urine Cloudy (Clear); Bacteria,Urine Rare /hpf; Bilirubin,Urine Negative (Negative); Blood,Urine Moderate (Negative); Budding Yeast,Urine Moderate /hpf; Color,Urine Yellow; Glucose,Urine (UA) Negative (Negative); Granular Casts,Urine 1 /lpf (0); Hyaline Casts,Urine 1 /lpf (0-2); Ketones,Urine Negative (Negative); Leukocyte Esterase,Urine Negative (Negative); Mucus,Urine Rare /hpf; Nitrite,Urine Positive (Negative); Protein,Urine 3+ (Negative); RBC,Urine 12 /hpf (0-5); Squamous Epithelial Cell,Urine 8 /hpf (0-4); Urobilinogen,Urine <2.0 mg/dL (<2.0); WBC,Urine 2 /hpf (0-5)
[2024-09-24 06:14] LABS: Specific Gravity,Urine >1.050 (1.001-1.035)
[2024-09-24] MEDS: ATORVASTATIN 40 MG TAB PO SCH (08:05)
[2024-09-24] MEDS: lisinopriL 10 MG TAB PO SCH (08:05)
[2024-09-24] MEDS: amLODIPine 5 MG TAB PO SCH (08:05)
[2024-09-24] MEDS: TROSPIUM CHLORIDE 20 MG TABLET PO SCH (08:05)
[2024-09-24] MEDS: LORATADINE 10 MG TAB PO SCH (08:05)
[2024-09-24] MEDS: NICOTINE 21MG/24HR PATCH TRANSDERM SCH (08:05)
[2024-09-24] MEDS: LEVOFLOXACIN 750 MG TAB PO SCH (08:05)
[2024-09-24] MEDS: CLOPIDOGREL 75 MG TAB PO SCH (08:05)
[2024-09-24] MEDS: PANTOPRAZOLE 40 MG/10 ML VIAL IV SCH (08:14)
[2024-09-24] MEDS: SYMBICORT 160-4.5 MCG INHALER INHALATION SCH (09:09)
[2024-09-24 12:28] LABS: Glucose,Whole Blood 286 mg/dL (70-110)
--- NOTE | 2024-09-24 12:35 | CA ---
Transthoracic Echo Report Name: Debi Crocker Age: 68 Gender: F : 1955 Exam Date: 09/24/2024 08:47 Exam Location: [place] [facility] Ht (in): 63 Wt (lb): 165 Ordering Physician: Luca Mccullough MD Attending/Referring Phys: Auditor Supervisor Anastacia Jimenes RDCS Procedure CPT: Indications: sob Cardiac Hx: Technical Quality: Fair Contrast 1: Total Dose (mL): Contrast 2: Total Dose (mL): MEASUREMENTS (Male / Female) Normal Values 2D ECHO LV Diastolic Diameter PLAX 5.2 cm 4.2 - 5.9 / 3.9 - 5.3 cm LV Systolic Diameter PLAX 3.6 cm IVS Diastolic Thickness 1.3 cm 0.6 - 1.0 / 0.6 - 0.9 cm LVPW Diastolic Thickness 1.1 cm 0.6 - 1.0 / 0.6 - 0.9 cm LV Relative Wall Thickness 0.5 LA Volume 82.6 cm??? 18 - 58 / 22 - 52 cm??? LA Volume Index 44.7 cm???/m??? 16 - 28 cm???/m??? DOPPLER AV Peak Velocity 121.4 cm/s AV Peak Gradient 5.9 mmHg AV Mean Velocity 78.3 cm/s AV Mean Gradient 2.8 mmHg AV Velocity Time Integral 25.6 cm LVOT Peak Velocity 112.4 cm/s LVOT Peak Gradient 5.1 mmHg LVOT Velocity Time Integral 28.4 cm MV Area PHT 3.4 cm??? Mitral E Point Velocity 87.5 cm/s Mitral A Point Velocity 142.9 cm/s Mitral E to A Ratio 0.6 MV Deceleration Time 223.2 ms MV E' Velocity 5.3 cm/s Mitral E to MV E' Ratio 16.4 FINDINGS Left Ventricle Mildly increased left ventricular wall thickness. Left ventricular cavity size normal. Normal left ventricular systolic function with no obvious regional wall motion abnormalities. Left ventricular ejection fraction is estimated at 55-60 %. Grade 1 diastolic dysfunction. Right Ventricle Right ventricle not well visualized. Right Atrium Right atrium not well visualized. Left Atrium Severely increased left atrial volume. Mildly increased left atrial area. Mitral Valve Structurally normal mitral valve. [place] mitral regurgitation. Aortic Valve No aortic valve stenosis or regurgitation. Tricuspid Valve Structurally normal tricuspid valve. Mild tricuspid regurgitation. Pulmonic Valve Pulmonic valve not well visualized. Pericardium No pericardial effusion. Aorta Aortic root and proximal ascending aorta not well visualized. CONCLUSIONS Technically suboptimal study secondary to poor echo windows Normal LV function Mild to moderate mitral and mild tricuspid regurgitation Previewed by: Dr. Jevon Joya MD (Electronically Signed) Final Date: 24 September 2024 12:34
[2024-09-24] MEDS ORDERED: DEXTROSE 50% SYRINGE 50 ML IVP PRN ×2 (12:37)
[2024-09-24] MEDS: INSULIN ASPART (NovoLOG) 100 UNIT/ML VIAL SQ SCH ×2 (13:28→17:52)
[2024-09-24] MEDS: FLUTICASONE NASAL 50MCG/SPRAY 16GM BTL EA NOSTRIL SCH (13:53)
[2024-09-24] MEDS ORDERED: Potassium Replacement Protocol 1 EACH MISC MISCELLANE PRN (16:07)
[2024-09-24] MEDS ORDERED: Magnesium Replacement Protocol 1 EACH MISC MISCELLANE PRN (16:10)
--- NOTE | 2024-09-24 16:17 | P.HPIM ---
History of Present Illness H&P Date: 09/24/24 Chief Complaint: Progressive shortness of breath This is 68-year-old female with past medical history significant for nicotine dependence, extensive, greater than [id number], diabetes mellitus, fibromyalgia, rheumatoid arthritis and multiple other medical issues presented t o the ER with not feeling well over the weekend, feeling tired, rundown and by Saturday developed increased shortness of breath. Reports on Saturday patient proceeded to urgent care , diagnosed with bronchitis ,received prescription of doxycycline only able to take a couple doses due to his GI symptoms. D-dimer elevated 0.93, CTA negative for PE, reporting a 2 cm density peripheral anterior lateral right midlung with enlarged mediastinal and right hilar adenopathy-May be related to infectious etiology, neoplasm not excluded, further workup/monitoring outpatient. Afebrile, Tmax 99.8, WBC 18.9, procalcitonin 1.02, CRP 6.7.hemoglobin 13.9, platelets 208. Sodium 134, potassium 3.5, bicarb 24, BUN 24, creatinine 0.88. Magnesium 1.4 glucose 189. Lactic acid 3.7, corrected to 1.3 with IV fluid hydration. UA reporting moderate blood, positive nitrates negative leukocytes rare bacteria. Viral studies negative. Review of Systems ROS Statement: Those systems with pertinent positive or pertinent negative responses have been documented in the HPI. ROS Other: All systems not noted in ROS Statement are negative. Past Medical History Past Medical History: Diabetes Mellitus, Fibromyalgia, Rheumatoid Arthritis (RA) Additional Past Medical History / Comment(s): Pneumonia 09/17-current smoker History of Any Multi-Drug Resistant Organisms: None Reported Past Surgical History: Cholecystectomy, Orthopedic Surgery, Tubal Ligation Additional Past Surgical History / Comment(s): Right arm surgery r/t pinched nerve. Past Anesthesia/Blood Transfusion Reactions: No Reported Reaction Past Psychological History: No Psychological Hx Reported Smoking Status: Current every day smoker Past Alcohol Use History: None Reported Past Drug Use History: None Reported Additional Drug Use History / Comment(s): Current daily smoker(pack day) - Past Family History Mother Family Medical History: Myocardial Infarction ([place]) Additional Family Medical History / Comment(s): Pacer Father Family Medical History: No Reported History, Unable to Obtain Additional Family Medical History / Comment(s): unknown Medications and Allergies Home Medications Medication Instructions Recorded Confirmed Type Atorvastatin [Lipitor] 40 mg PO DAILY 04/24/24 09/23/24 History Clopidogrel [Plavix] 75 mg PO DAILY 04/24/24 09/23/24 History Loratadine [Claritin] 10 mg PO DAILY 04/24/24 09/23/24 History Trospium Chloride 20 mg PO DAILY 04/24/24 09/23/24 History amLODIPine [Norvasc] 5 mg PO DAILY #30 tab 04/29/24 09/23/24 Rx lisinopriL [Zestril] 10 mg PO DAILY #30 tab 04/29/24 09/23/24 Rx Doxycycline Hyclate 100 mg PO BID 09/23/24 09/23/24 History Ergocalciferol (Vitamin D2) 1,250 mcg PO FR 09/23/24 09/23/24 History [Drisdol (50,000 Iu)] Mometasone Furoate [Nasonex 50 MCG] 2 spray NASAL DAILY 09/23/24 09/23/24 History Allergies Allergy/AdvReac Type Severity Reaction Status Date / Time clarithromycin [From Biaxin] Allergy Rash/Hives Verified 09/23/24 14:59 Physical Exam Vitals: Vital Signs Temp Pulse Pulse Resp BP BP Pulse Ox 09/24/24 15:36 83 09/24/24 11:33 97.7 F 83 20 133/61 97 09/24/24 10:54 98.6 F 82 18 133/43 96 09/24/24 09:21 86 09/24/24 09:09 76 09/24/24 07:25 71 22 145/59 96 09/24/24 06:04 65 16 135/51 94 L 09/24/24 04:15 63 17 130/51 93 L 09/24/24 03:03 70 29 H 113/50 92 L 09/24/24 00:47 99.3 F 79 24 152/57 89 L 09/23/24 21:54 83 18 143/48 95 09/23/24 20:28 80 11 L 127/54 91 L 09/23/24 18:25 76 09/23/24 18:19 98.6 F 75 24 127/54 92 L 09/23/24 18:12 77 09/23/24 16:37 99.8 F H 76 20 135/47 92 L 09/23/24 16:06 98.7 F 73 18 131/51 93 L Intake and Output 09/24/24 09/24/24 09/24/24 06:59 14:59 22:59 Other: Voiding Method Bedside Commode Diaper Weight 74.843 kg GENERAL: The patient is alert and oriented x3, not in any acute distress. Well developed, well nourished. HEENT: Pupils are round and equally reacting to light. EOMI. No scleral icterus. No conjunctival pallor. Normocephalic, atraumatic. No pharyngeal erythema. No thyromegaly. CARDIOVASCULAR: S1 and S2 present. No murmurs, rubs, or gallops. PULMONARY: Equal air entry, scattered rhonchi throughout. ABDOMEN: Soft, nontender, nondistended, normoactive bowel sounds. No palpable organomegaly. MUSCULOSKELETAL: No joint swelling or deformity. EXTREMITIES: No cyanosis, clubbing, or pedal edema. NEUROLOGICAL: Gross neurological examination did not reveal any focal deficits. SKIN: No rashes. Warm and dry Results CBC & Chem 7: 09/23/24 13:21 09/23/24 13:21 Labs: Abnormal Lab Results - Last 24 Hours (Table) 09/23/24 09/23/24 09/23/24 Range/Units 15:59 15:59 15:59 POC Glucose (mg/dL) (70-110) mg/dL Plasma Lactic Acid Edgardo 3.1 H* (0.7-2.0) mmol/L C-Reactive Protein 6.70 H (0.00-0.80) mg/dL Procalcitonin 1.02 H (0.02-0.50) ng/mL Urine Appearance (Clear) Ur Specific [place] (1.001-1.035) Urine Protein (Negative) Urine Blood (Negative) Urine Nitrite (Negative) Urine RBC (0-5) /hpf Ur Squamous Epith Cells (0-4) /hpf Urine Bacteria (None) /hpf Urine Mucus (None) /hpf Urine Yeast (Budding) (None) /hpf 09/23/24 09/24/24 09/24/24 Range/Units 19:56 00:07 05:25 POC Glucose (mg/dL) (70-110) mg/dL Plasma Lactic Acid Edgardo 3.7 H* 3.7 H* (0.7-2.0) mmol/L C-Reactive Protein (0.00-0.80) mg/dL Procalcitonin (0.02-0.50) ng/mL Urine Appearance Cloudy H (Clear) Ur Specific [place] >1.050 H (1.001-1.035) Urine Protein 3+ H (Negative) Urine Blood Moderate H (Negative) Urine Nitrite Positive H (Negative) Urine RBC 12 H (0-5) /hpf Ur Squamous Epith Cells 8 H (0-4) /hpf Urine Bacteria Rare H (None) /hpf Urine Mucus Rare H (None) /hpf Urine Yeast (Budding) Moderate H (None) /hpf 09/24/24 Range/Units 12:27 POC Glucose (mg/dL) 286 H (70-110) mg/dL Plasma Lactic Acid Edgardo (0.7-2.0) mmol/L C-Reactive Protein (0.00-0.80) mg/dL Procalcitonin (0.02-0.50) ng/mL Urine Appearance (Clear) Ur Specific [place] (1.001-1.035) Urine Protein (Negative) Urine Blood (Negative) Urine Nitrite (Negative) Urine RBC (0-5) /hpf Ur Squamous Epith Cells (0-4) /hpf Urine Bacteria (None) /hpf Urine Mucus (None) /hpf Urine Yeast (Budding) (None) /hpf Thrombosis Risk Factor Assmnt - Choose All That Apply Each Factor Represents 1 point: Abnormal pulmonary function (COPD), Obesity (BMI >25) Each Risk Factor Represents 2 Points: Age 61-74 years Thrombosis Risk Factor Assessment Total Risk Factor Score: 4 Thrombosis Risk Factor Assessment Level: Moderate Risk Assessment and Plan Assessment: Sepsis secondary community-acquired pneumonia, right midlung, procalcitonin elevated, 1.02. Acute COPD exacerbation secondary to the above Acute hypoxic respiratory failure secondary to the above Leukocytosis Lactic acidosis Diabetes mellitus type 2, hyperglycemic, steroid-induced Hypertension Hyperlipidemia Ongoing nicotine dependence, greater than 50 years Rheumatoid arthritis Plan: Continue on current medication regimen ,monitoring and symptomatic treat ment. Echo ordered .repeat magnesium and potassium levels with replacement protocols ordered. Lantus insulin added to med regimen for steroid-induced hyperglycemia. Close monitoring of Accu-Cheks sputum culture ordered.maintain antibiotics of Levaquin. Aggressive pulmonary toileting with nebulized bronchodilators, IV steroids and Symbicort. Smoking sensation reinforced. Increase ambulation as tolerated. Close monitoring of renal function, electrolytes, WBC with repeat labs ordered for a.m. The impression and plan of care has been dictated as directed. : I performed a history and examination of this patient, discussed the same with the dictator. I agree with the dictator's note ,documented as a scribe. Any additional findings or plans will be noted.
[2024-09-24] MEDS: INSULIN DETEMIR (LEVEMIR) 100 UNIT/ML SYR SQ SCH (17:16)
[2024-09-24 17:28] LABS: Glucose,Whole Blood 260 mg/dL (70-110)
[2024-09-24 17:43] LABS: Magnesium 1.4 mg/dL (1.6-2.3); Potassium 3.7 mmol/L (3.5-5.1)
[2024-09-24 20:23] LABS: Glucose,Whole Blood 281 mg/dL (70-110)
[2024-09-24] MEDS: POTASSIUM CHLORIDE ER 20 MEQ TAB.ER PO SCH (20:58)
[2024-09-25 07:13] LABS: Glucose,Whole Blood 311 mg/dL (70-110)
[2024-09-25 08:18] LABS: HCT 33.9 % (37.2-46.3); HGB 11.7 g/dL (12.0-15.0); MCH 31.5 pg (27.0-32.0); MCHC 34.5 g/dL (32.0-37.0); MCV 91.1 FL (80.0-97.0); Mean Platelet Volume 10.6 FL (9.5-12.2); NRBC Per 100 WBC 0 X 10*3/uL (0.00-0.01); Platelet Count 186 X 10*3/uL (140-440); RBC 3.72 X 10*6/uL (4.10-5.20); WBC 18.12 X 10*3/uL (4.50-10.00)
[2024-09-25 08:19] LABS: Basophils # (A) 0.02 X 10*3/uL (0.00-0.10); Basophils % (A) 0.1 %; Eosinophils # (A) 0 X 10*3/uL (0.04-0.35); Eosinophils % (A) 0 %; Lymphocytes # (A) 0.94 X 10*3/uL (0.90-5.00); Lymphocytes % (A) 5.2 %; Monocytes # (A) 0.41 X 10*3/uL (0.20-1.00); Monocytes % (A) 2.3 %; Neutrophils # (A) 16.61 X 10*3/uL (1.80-7.70); Neutrophils % (A) 91.6 %
[2024-09-25 08:55] LABS: BUN/Creat Ratio 19.82 Ratio (12.00-20.00); Blood Urea Nitrogen 21.8 mg/dL (9.0-27.0); Calcium 9.1 mg/dL (8.7-10.3); Carbon Dioxide 21.8 mmol/L (21.6-31.8); Chloride 101 mmol/L (96-109); Glucose 323 mg/dL (70-110); Magnesium 1.7 mg/dL (1.5-2.4); Potassium 3.8 mmol/L (3.5-5.5); Sodium 135 mmol/L (135-145)
[2024-09-25] MEDS: ERGOCALCIFEROL 1,250 MCG (50,000 IU) CAPSULE PO SCH (09:04)
[2024-09-25] MEDS: OXYMETAZOLINE 0.05% NASL SPRAY 1 SPRAY BOTTLE NASAL SCH (10:00)
[2024-09-25 12:21] LABS: Glucose,Whole Blood 286 mg/dL (70-110)
--- NOTE | 2024-09-25 13:26 | P.PN ---
Subjective Progress Note Date: 09/25/24 Patient is a 68-year-old female with past medical history significant for hypertension, hyperlipidemia, diabetes, COPD, and chronic ongoing tobacco dependence. Primary care provider is a PA, Tania Arroyo. On Saturday she went to a local urgent care center, diagnosed with bronchitis. Treated with antibiot ics, doxycycline. Despite this, progressively worsened over the last several days. She presented the ED yesterday in some respiratory distress. Associated symptoms include nonproductive cough, chest congestion, reduced appetite, dry heaves. Reports right back pain/pleurisy. Chest CTA done on arrival did not show any acute pulmonary embolism. A 2 cm density peripheral anterolateral in the right midlung with associated adenopathy. Suspicious for infectious process given her symptoms. CBC: WBC count 18.9, hemoglobin 13.9, hematocrit 40.7, platelets 208. CMP: Sodium 134, potassium 3.5, chloride 101, serum bicarb 24, BUN 24, creatinine 0.88, glucose 189. Lactic's are elevated and trending around 3.7. Received a 2 L normal saline bolus in the ED, and continues on normal saline at 75 mL/h. Magnesium 1.4. LFTs unremarkable. Troponin less than 0.012. NT proBNP 247. Viral screen negative for influenza, RSV, COVID. Procalcitonin level was elevated at 1.02. She does have low-grade fever 99.8. She started on Levaquin in the ED. I am evaluating this patient in the emergency department, room 18. She is uncomfortable. She is dyspneic. Tachypneic. Conversational dyspnea 1-2 word phrases. She is on 6 L/min nasal cannula. SpO2 92%. Heart rate 67 bpm. Blood pressure 152/57 mmHg. Current temperature 99.3 F. She has some wheezing. With likely COPD exacerbation. The patient is seen today September 25, 2024 in follow-up on the regular medical floor. She is currently resting in bed. Awake and alert in no acute distress. She is maintaining O2 saturations in the 90s on 6 L high flow nasal cannula. No IV fluids. Her procalcitonin was 1.02. She remains on Levaquin. Remains on DuoNeb inhalations, Symbicort, Solu-Medrol. NicoDerm patch in place. Echocardiogram revealed preserved left ventricular systolic function. Mild to moderate mitral and tricuspid regurgitation. Objective - Vital Signs Vital signs: Vital Signs Temp 97.8 F 09/25/24 07:25 Pulse 68 09/25/24 11:46 Resp 18 09/25/24 07:25 BP 162/76 09/25/24 07:25 Pulse Ox 96 09/25/24 11:31 FiO2 Intake & Output 09/24/24 09/25/24 09/25/24 18:59 06:59 18:59 Intake Total 540 Output Total 800 Balance -800 540 Weight 74.843 kg Intake: Oral 540 Output: Urine 800 Other: Voiding Method Bedside Commode Bedside Commode Bedside Commode Diaper Diaper Diaper - Exam GENERAL EXAM: Alert, pleasant 68-year-old female, resting in bed, on 6 L nasal cannula, in some mild respiratory distress. HEAD: Normocephalic and atraumatic EYES: Normal reaction of pupils, equal size. NOSE: Clear with pink turbinates. THROAT: No erythema or exudates. NECK: No masses, no JVD. CHEST: No chest wall deformity. LUNGS: Equal air entry with expiratory wheezes heard bilaterally throughout. CVS: S1 and S2 normal with no audible murmur, regular rhythm. No extra heart sounds ABDOMEN: No hepatosplenomegaly, active bowel sounds, no guarding or rigidity. SPINE: No scoliosis or deformity SKIN: No rashes CENTRAL NERVOUS SYSTEM: No focal deficits, tone is normal in all 4 extremities. EXTREMITIES: There is no peripheral edema, clubbing, or cyanosis. Peripheral pulses are intact. - Labs CBC & Chem 7: 09/25/24 06:09 09/25/24 06:09 Labs: Abnormal Lab Results - Last 24 Hours (Table) 09/24/24 09/24/24 09/24/24 Range/Units 16:34 17:26 20:18 WBC (4.50-10.00) X 10*3/uL RBC (4.10-5.20) X 10*6/uL Hgb (12.0-15.0) g/dL Hct (37.2-46.3) % Immature Gran # (0.00-0.04) X 10*3/uL Neutrophils # (1.80-7.70) X 10*3/uL Eosinophils # (0.04-0.35) X 10*3/uL Anion Gap (4.00-12.00) mmol/L Est GFR (CKD-EPI) (>=60) Glucose (70-110) mg/dL POC Glucose (mg/dL) 260 H 281 H (70-110) mg/dL Hemoglobin A1c (<=6.0) % Magnesium 1.4 L (1.6-2.3) mg/dL 09/25/24 09/25/24 09/25/24 Range/Units 06:09 06:09 06:09 WBC 18.12 H (4.50-10.00) X 10*3/uL RBC 3.72 L (4.10-5.20) X 10*6/uL Hgb 11.7 L (12.0-15.0) g/dL Hct 33.9 L (37.2-46.3) % Immature Gran # 0.14 H (0.00-0.04) X 10*3/uL Neutrophils # 16.61 H (1.80-7.70) X 10*3/uL Eosinophils # 0 L (0.04-0.35) X 10*3/uL Anion Gap 12.20 H (4.00-12.00) mmol/L Est GFR (CKD-EPI) 54 L (>=60) Glucose 323 H (70-110) mg/dL POC Glucose (mg/dL) (70-110) mg/dL Hemoglobin A1c 6.8 H (<=6.0) % Magnesium (1.6-2.3) mg/dL 09/25/24 09/25/24 Range/Units 07:06 12:19 WBC (4.50-10.00) X 10*3/uL RBC (4.10-5.20) X 10*6/uL Hgb (12.0-15.0) g/dL Hct (37.2-46.3) % Immature Gran # (0.00-0.04) X 10*3/uL Neutrophils # (1.80-7.70) X 10*3/uL Eosinophils # (0.04-0.35) X 10*3/uL Anion Gap (4.00-12.00) mmol/L Est GFR (CKD-EPI) (>=60) Glucose (70-110) mg/dL POC Glucose (mg/dL) 311 H 286 H (70-110) mg/dL Hemoglobin A1c (<=6.0) % Magnesium (1.6-2.3) mg/dL Microbiology - Last 24 Hours (Table) 09/24/24 10:58 Gram Stain - Preliminary Sputum 09/23/24 16:02 Blood Culture - Preliminary Blood Assessment and Plan Assessment: Right midlung community-acquired pneumonia. Procalcitonin 1.02. Currently on Levaquin Acute COPD exacerbation, secondary to above Acute hypoxemic respiratory failure, currently on 6 L nasal cannula, secondary to above Acute leukocytosis Lactic acidemia Hypertension History of hyperlipidemia Diabetes mellitus Chronic ongoing tobacco dependence, with over [id number]-[id number] history History of rheumatoid arthritis Plan: The patient was seen and evaluated Echocardiogram, Labs and medications reviewed Continue bronchodilators, steroids Continue Levaquin Titrate down the FiO2 as tolerated Follow-up chest x-ray in a.m. We will continue to follow I have personally seen and examined the patient, performed the documentation and the assessment and plan as written. Number of minutes spent on the visit: 10 Dictation was produced using Vis[employer] dictation software. Please excuse any grammatical, word or spelling errors.
--- NOTE | 2024-09-25 14:10 | P.PN ---
Subjective Progress Note Date: 09/25/24 H&P Date: 09/24/24 Chief Complaint: Progressive shortness of breath This is 68-year-old female with past medical history significant for nicotine dependence, extensive, greater than [id number], diabetes mellitus, fibromyalgia, rheumatoid arthritis and multiple other medical issues presented to the ER with not feeling well over the weekend, feeling tired, rundown and by Saturday developed increased shortness of breath. Reports on Saturday patient proceeded to urgent care , diagnosed with bronchitis ,received prescription of doxycycline only able to take a couple doses due to his GI symptoms. D-dimer elevated 0.93, CTA negative for PE, reporting a 2 cm density peripheral anterior lateral right midlung with enlarged mediastinal and right hilar adenopathy-May be related to infectious etiology, neoplasm not excluded, further workup/monitoring outpatient. Afebrile, Tmax 99.8, WBC 18.9, procalcitonin 1.02, CRP 6.7.hemoglobin 13.9, platelets 208. Sodium 134, potassium 3.5, bicarb 24, BUN 24, creatinine 0.88. Magnesium 1.4 glucose 189. Lactic acid 3.7, corrected to 1.3 with IV fluid hydration. UA reporting moderate blood, positive nitrates negative leukocytes rare bacteria. Viral studies negative. 09/25/2024 maintained on IV Levaquin, nebulized bronchodilators, IV steroids, Symbicort. Afebrile , WBC 18.12 .Currently maintaining O2 sats in the 90s on 6 L nasal cannula.Levemir added yesterday to med regimen, hyperglycemic on IV steroids. Hemoglobin A1c 6.8. Echo reported technically suboptimal study secondary to poor echo windows, normal LV function, mild to moderate mitral and mild tricuspid regurgitation. Objective - Vital Signs Vital signs: Vital Signs Temp 98.5 F 09/25/24 13:37 Pulse 78 09/25/24 13:37 Resp 18 09/25/24 13:37 BP 152/67 09/25/24 13:37 Pulse Ox 93 L 09/25/24 13:37 FiO2 Intake & Output 09/24/24 09/25/24 09/25/24 18:59 06:59 18:59 Intake Total 540 Output Total 800 Balance -800 540 Weight 74.843 kg Intake: Oral 540 Output: Urine 800 Other: Voiding Method Bedside Commode Bedside Commode Bedside Commode Diaper Diaper Diaper - Exam GENERAL: The patient is alert and oriented x3, not in any acute distress. HEENT: Normocephalic, atraumatic pupils are round and equally reacting to light. EOMI. No scleral icterus. No conjunctival pallor. CARDIOVASCULAR: S1 and S2 present. No murmurs, rubs, or gallops. PULMONARY: Equal air entry, scattered rhonchi throughout. ABDOMEN: Soft, nontender, nondistended, normoactive bowel sounds. No palpable organomegaly. EXTREMITIES: No cyanosis, clubbing, or pedal edema. NEUROLOGICAL: Gross neurological examination did not reveal any focal deficits. SKIN: No rashes. Warm and dry - Labs CBC & Chem 7: 09/25/24 06:09 09/25/24 06:09 Labs: Abnormal Lab Results - Last 24 Hours (Table) 09/24/24 09/24/24 09/24/24 Range/Units 16:34 17:26 20:18 WBC (4.50-10.00) X 10*3/uL RBC (4.10-5.20) X 10*6/uL Hgb (12.0-15.0) g/dL Hct (37.2-46.3) % Immature Gran # (0.00-0.04) X 10*3/uL Neutrophils # (1.80-7.70) X 10*3/uL Eosinophils # (0.04-0.35) X 10*3/uL Anion Gap (4.00-12.00) mmol/L Est GFR (CKD-EPI) (>=60) Glucose (70-110) mg/dL POC Glucose (mg/dL) 260 H 281 H (70-110) mg/dL Hemoglobin A1c (<=6.0) % Magnesium 1.4 L (1.6-2.3) mg/dL 09/25/24 09/25/24 09/25/24 Range/Units 06:09 06:09 06:09 WBC 18.12 H (4.50-10.00) X 10*3/uL RBC 3.72 L (4.10-5.20) X 10*6/uL Hgb 11.7 L (12.0-15.0) g/dL Hct 33.9 L (37.2-46.3) % Immature Gran # 0.14 H (0.00-0.04) X 10*3/uL Neutrophils # 16.61 H (1.80-7.70) X 10*3/uL Eosinophils # 0 L (0.04-0.35) X 10*3/uL Anion Gap 12.20 H (4.00-12.00) mmol/L Est GFR (CKD-EPI) 54 L (>=60) Glucose 323 H (70-110) mg/dL POC Glucose (mg/dL) (70-110) mg/dL Hemoglobin A1c 6.8 H (<=6.0) % Magnesium (1.6-2.3) mg/dL 09/25/24 09/25/24 Range/Units 07:06 12:19 WBC (4.50-10.00) X 10*3/uL RBC (4.10-5.20) X 10*6/uL Hgb (12.0-15.0) g/dL Hct (37.2-46.3) % Immature Gran # (0.00-0.04) X 10*3/uL Neutrophils # (1.80-7.70) X 10*3/uL Eosinophils # (0.04-0.35) X 10*3/uL Anion Gap (4.00-12.00) mmol/L Est GFR (CKD-EPI) (>=60) Glucose (70-110) mg/dL POC Glucose (mg/dL) 311 H 286 H (70-110) mg/dL Hemoglobin A1c (<=6.0) % Magnesium (1.6-2.3) mg/dL Microbiology - Last 24 Hours (Table) 09/24/24 10:58 Urine Culture - Final Urine,Clean Catch 09/24/24 10:58 Gram Stain - Preliminary Sputum Sputum Culture - Preliminary 09/23/24 16:02 Blood Culture - Preliminary Blood Assessment and Plan Assessment: Sepsis secondary community-acquired pneumonia, right midlung, procalcitonin elevated, 1.02. Acute COPD exacerbation secondary to the above Acute hypoxic respiratory failure secondary to the above Acute UTI, UA reporting positive nitrates. urine culture reporting no growth after 18 hours Leukocytosis Lactic acidosis Diabetes mellitus type 2, hyperglycemic, steroid-induced, hemoglobin A1c 6.8 Mild to moderate mitral regurgitation Hypertension Hyperlipidemia Ongoing nicotine dependence, greater than 50 years Rheumatoid arthritis Plan: Continue on current medication regimen ,monitoring and symptomatic treatment.Continue aggressive pulmonary toileting with nebulized bronchodilators, IV steroids, Symbicort, Levaquin.weaning of oxygen in progress .Lantus insulin further adjusted for steroid-induced hyperglycemia. Close monit oring of Accu-Cheks sputum culture in progress. Smoking sensation reinforced. Increase ambulation as tolerated. Close monitoring of renal function, electrolytes, WBC with repeat labs ordered for a.m. The impression and plan of care has been dictated as directed. : I performed a history and examination of this patient, discussed the same with the dictator. I agree with the dictator's note ,documented as a scribe. Any additional findings or plans will be noted.
[2024-09-25] MEDS: INSULIN DETEMIR (LEVEMIR) 100 UNIT/ML SYR SQ ONE (14:41)
[2024-09-25 17:24] LABS: Glucose,Whole Blood 335 mg/dL (70-110)
[2024-09-25 20:15] LABS: Glucose,Whole Blood 395 mg/dL (70-110)
[2024-09-25] MEDS: INSULIN DETEMIR (LEVEMIR) 100 UNIT/ML SYR SQ SCH (20:24)
[2024-09-26 07:20] LABS: Glucose,Whole Blood 382 mg/dL (70-110)
--- NOTE | 2024-09-26 07:48 | XR ---
EXAMINATION TYPE: XR chest 1V portable DATE OF EXAM: 09/26/2024 7:36 AM COMPARISON: Chest radiographs from 09/23/2024 CLINICAL INDICATION: Female, 68 years old with history of Pneumonia; [facility] TECHNIQUE: XR chest 1V portable Frontal view of the chest. FINDINGS: Lungs/Pleura: Similar right lower lung airspace opacities.There is no evidence of pleural effusion,le ft focal consolidation, or pneumothorax. Pulmonary vascularity: Unremarkable. Heart/mediastinum: Cardiomediastinal silhouette is unremarkable. Atherosclerotic calcifications are seen in the aorta. Musculoskeletal: No acute osseous pathology. Other findings: None IMPRESSION: Similar right lower lung airspace opacities. [facility], , 09/26/2024 7:45 AM
--- NOTE | 2024-09-26 07:56 | P.PN ---
Subjective Progress Note Date: 09/26/24 Patient is a 68-year-old female with past medical history significant for hypertension, hyperlipidemia, diabetes, COPD, and chronic ongoing tobacco dependence. Primary care provider is a PA, Tania Arroyo. On Saturday she went to a local urgent care center, diagnosed with bronchitis. Treated with antibiot ics, doxycycline. Despite this, progressively worsened over the last several days. She presented the ED yesterday in some respiratory distress. Associated symptoms include nonproductive cough, chest congestion, reduced appetite, dry heaves. Reports right back pain/pleurisy. Chest CTA done on arrival did not show any acute pulmonary embolism. A 2 cm density peripheral anterolateral in the right midlung with associated adenopathy. Suspicious for infectious process given her symptoms. CBC: WBC count 18.9, hemoglobin 13.9, hematocrit 40.7, platelets 208. CMP: Sodium 134, potassium 3.5, chloride 101, serum bicarb 24, BUN 24, creatinine 0.88, glucose 189. Lactic's are elevated and trending around 3.7. Received a 2 L normal saline bolus in the ED, and continues on normal saline at 75 mL/h. Magnesium 1.4. LFTs unremarkable. Troponin less than 0.012. NT proBNP 247. Viral screen negative for influenza, RSV, COVID. Procalcitonin level was elevated at 1.02. She does have low-grade fever 99.8. She started on Levaquin in the ED. I am evaluating this patient in the emergency department, room 18. She is uncomfortable. She is dyspneic. Tachypneic. Conversational dyspnea 1-2 word phrases. She is on 6 L/min nasal cannula. SpO2 92%. Heart rate 67 bpm. Blood pressure 152/57 mmHg. Current temperature 99.3 F. She has some wheezing. With likely COPD exacerbation. The patient is seen today September 25, 2024 in follow-up on the regular medical floor. She is currently resting in bed. Awake and alert in no acute distress. She is maintaining O2 saturations in the 90s on 6 L high flow nasal cannula. No IV fluids. Her procalcitonin was 1.02. She remains on Levaquin. Remains on DuoNeb inhalations, Symbicort, Solu-Medrol. NicoDerm patch in place. Echocardiogram revealed preserved left ventricular systolic function. Mild to moderate mitral and tricuspid regurgitation. The patient is seen today September 26, 2024 in follow-up on the regular medical floor. She is currently sitting up in bed. Awake and alert in no acute distress. Maintaining good O2 saturations in the 90s on 2 L/min per nasal cannula. No IV fluids. She is continued on Symbicort, DuoNeb inhalations, Solu-Medrol. Remains on antibiotics in the form of Levaquin. Her procalcitonin was 1.02. Today's chest x-ray showing improvement in the right midlung pneumonia. She is feeling better. Blood, sputum and urine cultures revealed no growth. Glucose 382. Continued on Levemir and NovoLog sliding scale. NicoDerm patch in place. Objective - Vital Signs Vital signs: Vital Signs Temp 97.7 F 09/26/24 07:38 Pulse 64 09/26/24 07:38 Resp 18 09/26/24 07:38 BP 157/60 09/26/24 07:38 Pulse Ox 95 09/26/24 07:38 FiO2 Intake & Output 09/25/24 09/26/24 09/26/24 18:59 06:59 18:59 Intake Total 1080 Balance 1080 Intake: Oral 1080 Other: Voiding Method Bedside Commode Bedside Commode Diaper Diaper # Voids 3 2 - Exam GENERAL EXAM: Alert, 68-year-old female, sitting up in bed, on 2 L nasal cannula, in no acute distress. HEAD: Normocephalic and atraumatic EYES: Normal reaction of pupils, equal size. NOSE: Clear with pink turbinates. THROAT: No erythema or exudates. NECK: No masses, no JVD. CHEST: No chest wall deformity. LUNGS: Equal air entry with expiratory wheezes heard bilaterally. CVS: S1 and S2 normal with no audible murmur, regular rhythm. No extra heart sounds ABDOMEN: No hepatosplenomegaly, active bowel sounds, no guarding or rigidity. SPINE: No scoliosis or deformity SKIN: No rashes CENTRAL NERVOUS SYSTEM: No focal deficits, tone is normal in all 4 extremities. EXTREMITIES: There is no peripheral edema, clubbing, or cyanosis. Peripheral pulses are intact. - Labs CBC & Chem 7: 09/25/24 06:09 09/25/24 06:09 Labs: Abnormal Lab Results - Last 24 Hours (Table) 09/25/24 09/25/24 09/25/24 Range/Units 06:09 06:09 06:09 WBC 18.12 H (4.50-10.00) X 10*3/uL RBC 3.72 L (4.10-5.20) X 10*6/uL Hgb 11.7 L (12.0-15.0) g/dL Hct 33.9 L (37.2-46.3) % Immature Gran # 0.14 H (0.00-0.04) X 10*3/uL Neutrophils # 16.61 H (1.80-7.70) X 10*3/uL Eosinophils # 0 L (0.04-0.35) X 10*3/uL Anion Gap 12.20 H (4.00-12.00) mmol/L Est GFR (CKD-EPI) 54 L (>=60) Glucose 323 H (70-110) mg/dL POC Glucose (mg/dL) (70-110) mg/dL Hemoglobin A1c 6.8 H (<=6.0) % 09/25/24 09/25/24 09/25/24 Range/Units 12:19 17:21 20:14 WBC (4.50-10.00) X 10*3/uL RBC (4.10-5.20) X 10*6/uL Hgb (12.0-15.0) g/dL Hct (37.2-46.3) % Immature Gran # (0.00-0.04) X 10*3/uL Neutrophils # (1.80-7.70) X 10*3/uL Eosinophils # (0.04-0.35) X 10*3/uL Anion Gap (4.00-12.00) mmol/L Est GFR (CKD-EPI) (>=60) Glucose (70-110) mg/dL POC Glucose (mg/dL) 286 H 335 H 395 H (70-110) mg/dL Hemoglobin A1c (<=6.0) % 09/26/24 Range/Units 07:09 WBC (4.50-10.00) X 10*3/uL RBC (4.10-5.20) X 10*6/uL Hgb (12.0-15.0) g/dL Hct (37.2-46.3) % Immature Gran # (0.00-0.04) X 10*3/uL Neutrophils # (1.80-7.70) X 10*3/uL Eosinophils # (0.04-0.35) X 10*3/uL Anion Gap (4.00-12.00) mmol/L Est GFR (CKD-EPI) (>=60) Glucose (70-110) mg/dL POC Glucose (mg/dL) 382 H (70-110) mg/dL Hemoglobin A1c (<=6.0) % Microbiology - Last 24 Hours (Table) 09/23/24 16:02 Blood Culture - Preliminary Blood 09/24/24 10:58 Urine Culture - Final Urine,Clean Catch 09/24/24 10:58 Gram Stain - Preliminary Sputum Sputum Culture - Preliminary Assessment and Plan Assessment: Right midlung community-acquired pneumonia. Procalcitonin 1.02. Currently on Levaquin. Follow-up chest x-ray showing improvement Acute COPD exacerbation, secondary to above Acute hypoxemic respiratory failure, currently on 2 L nasal cannula, secondary to above Acute leukocytosis Lactic acidemia Hypertension History of hyperlipidemia Diabetes mellitus Chronic ongoing tobacco dependence, with over [id number] history History of rheumatoid arthritis Plan: The patient was seen and evaluated Chest x-ray, labs and medications reviewed Improving clinically and radiographically Continue bronchodilators Discontinue Solu-Medrol Initiate a prednisone taper Continue Levaquin Titrate down the FiO2 as tolerated This patient was seen independently by the pulmonary nurse practitioner christian [facility] pulmonary issues I have personally seen and examined the patient, performed the documentation and the assessment and plan as written. Number of minutes spent on the visit: 24 Dictation was produced using [employer] dictation software. Please excuse any grammatical, word or spelling errors.
[2024-09-26] MEDS: INSULIN DETEMIR (LEVEMIR) 100 UNIT/ML SYR SQ SCH (08:05)
[2024-09-26] MEDS: predniSONE 10 MG TAB PO SCH (09:48)
[2024-09-26 12:20] LABS: Glucose,Whole Blood 397 mg/dL (70-110)
[2024-09-26 17:26] LABS: Glucose,Whole Blood 416 mg/dL (70-110)
[2024-09-26 20:00] LABS: Glucose,Whole Blood 461 mg/dL (70-110)
[2024-09-26] MEDS: INSULIN ASPART (NovoLOG) 100 UNIT/ML VIAL SQ ONE (20:20)
[2024-09-27 07:05] LABS: Glucose,Whole Blood 205 mg/dL (70-110)
[2024-09-27] MEDS: INSULIN ASPART (NovoLOG) 100 UNIT/ML VIAL SQ SCH (07:43)
[2024-09-27] MEDS: LEVOFLOXACIN 750 MG TAB PO SCH (07:44)
--- NOTE | 2024-09-27 08:06 | P.PN ---
Subjective Progress Note Date: 09/27/24 Patient is a 68-year-old female with past medical history significant for hypertension, hyperlipidemia, diabetes, COPD, and chronic ongoing tobacco dependence. Primary care provider is a PA, Tania Arroyo. On Saturday she went to a local urgent care center, diagnosed with bronchitis. Treated with antibiot ics, doxycycline. Despite this, progressively worsened over the last several days. She presented the ED yesterday in some respiratory distress. Associated symptoms include nonproductive cough, chest congestion, reduced appetite, dry heaves. Reports right back pain/pleurisy. Chest CTA done on arrival did not show any acute pulmonary embolism. A 2 cm density peripheral anterolateral in the right midlung with associated adenopathy. Suspicious for infectious process given her symptoms. CBC: WBC count 18.9, hemoglobin 13.9, hematocrit 40.7, platelets 208. CMP: Sodium 134, potassium 3.5, chloride 101, serum bicarb 24, BUN 24, creatinine 0.88, glucose 189. Lactic's are elevated and trending around 3.7. Received a 2 L normal saline bolus in the ED, and continues on normal saline at 75 mL/h. Magnesium 1.4. LFTs unremarkable. Troponin less than 0.012. NT proBNP 247. Viral screen negative for influenza, RSV, COVID. Procalcitonin level was elevated at 1.02. She does have low-grade fever 99.8. She started on Levaquin in the ED. I am evaluating this patient in the emergency department, room 18. She is uncomfortable. She is dyspneic. Tachypneic. Conversational dyspnea 1-2 word phrases. She is on 6 L/min nasal cannula. SpO2 92%. Heart rate 67 bpm. Blood pressure 152/57 mmHg. Current temperature 99.3 F. She has some wheezing. With likely COPD exacerbation. The patient is seen today September 25, 2024 in follow-up on the regular medical floor. She is currently resting in bed. Awake and alert in no acute distress. She is maintaining O2 saturations in the 90s on 6 L high flow nasal cannula. No IV fluids. Her procalcitonin was 1.02. She remains on Levaquin. Remains on DuoNeb inhalations, Symbicort, Solu-Medrol. NicoDerm patch in place. Echocardiogram revealed preserved left ventricular systolic function. Mild to moderate mitral and tricuspid regurgitation. The patient is seen today September 26, 2024 in follow-up on the regular medical floor. She is currently sitting up in bed. Awake and alert in no acute distress. Maintaining good O2 saturations in the 90s on 2 L/min per nasal cannula. No IV fluids. She is continued on Symbicort, DuoNeb inhalations, Solu-Medrol. Remains on antibiotics in the form of Levaquin. Her procalcitonin was 1.02. Today's chest x-ray showing improvement in the right midlung pneumonia. She is feeling better. Blood, sputum and urine cultures revealed no growth. Glucose 382. Continued on Levemir and NovoLog sliding scale. NicoDerm patch in place. The patient is seen today September 27, 2024 in follow-up on the regular medical floor. She is awake and alert in no acute distress. Sitting up in bed. Denies any worsening shortness of breath, cough or congestion. Maintaining good O2 saturations in the upper 90s on 2 L/min per nasal cannula. Afebrile. Hemodynamically stable. She is feeling better each day. She remains on DuoNeb inhalations, Symbicort, prednisone taper. Antibiotics in the form of Levaquin. NicoDerm patch in place. Blood, sputum, urine cultures all revealed no growth. Glucose 205. Objective - Vital Signs Vital signs: Vital Signs Temp 98.2 F 09/27/24 07:29 Pulse 52 L 09/27/24 07:29 Resp 18 09/27/24 07:29 BP 162/71 09/27/24 07:29 Pulse Ox 98 09/27/24 07:29 FiO2 Intake & Output 09/26/24 09/27/24 09/27/24 19:59 06:59 18:59 Other: Voiding Method # Voids # Bowel Movements - Exam GENERAL EXAM: Alert, oriented 68-year-old female, on 2 L nasal cannula, in no acute distress. HEAD: Normocephalic and atraumatic EYES: Normal reaction of pupils, equal size. NOSE: Clear with pink turbinates. THROAT: No erythema or exudates. NECK: No masses, no JVD. CHEST: No chest wall deformity. LUNGS: Equal air entry with expiratory wheezes heard bilaterally. CVS: S1 and S2 normal with no audible murmur, regular rhythm. No extra heart sounds ABDOMEN: No hepatosplenomegaly, active bowel sounds, no guarding or rigidity. SPINE: No scoliosis or deformity SKIN: No rashes CENTRAL NERVOUS SYSTEM: No focal deficits, tone is normal in all 4 extremities. EXTREMITIES: There is no peripheral edema, clubbing, or cyanosis. Peripheral pulses are intact. - Labs CBC & Chem 7: 09/25/24 06:09 09/25/24 06:09 Labs: Abnormal Lab Results - Last 24 Hours (Table) 09/26/24 09/26/24 09/26/24 Range/Units 12:19 17:24 19:58 POC Glucose (mg/dL) 397 H 416 H 461 H (70-110) mg/dL 09/27/24 Range/Units 07:00 POC Glucose (mg/dL) 205 H (70-110) mg/dL Microbiology - Last 24 Hours (Table) 09/23/24 16:02 Blood Culture - Preliminary Blood 09/24/24 10:58 Gram Stain - Final Sputum Sputum Culture - Final Assessment and Plan Assessment: Right midlung community-acquired pneumonia. Procalcitonin 1.02. Currently on Levaquin. Follow-up chest x-ray showing improvement Acute COPD exacerbation, secondary to above Acute hypoxemic respiratory failure, currently on 2 L nasal cannula, secondary to above Acute leukocytosis Lactic acidemia Hypertension History of hyperlipidemia Diabetes mellitus Chronic ongoing tobacco dependence, with over [id number] history History of rheumatoid arthritis Plan: The patient was seen and evaluated Labs and medications reviewed Continue bronchodilators, steroids Continue Levaquin Titrate down/off the FiO2 as tolerated Increase her activity as tolerated This patient was seen independently by the pulmonary nurse practitioner addressing pulmonary issues I have personally seen and examined the patient, performed the documentation and the assessment and plan as written. Number of minutes spent on the visit: 23 Dictation was produced using [employer] software. Please excuse any grammatical, word or spelling errors.
[2024-09-27 09:09] LABS: Blood Urea Nitrogen 22.5 mg/dL (9.0-27.0); Carbon Dioxide 22.7 mmol/L (21.6-31.8); Chloride 102 mmol/L (96-109); Glucose 226 mg/dL (70-110); Potassium 3.9 mmol/L (3.5-5.5); Sodium 138 mmol/L (135-145)
[2024-09-27 09:10] LABS: Calcium 9.2 mg/dL (8.7-10.3)
[2024-09-27 09:41] LABS: Basophils # (A) 0.13 X 10*3/uL (0.00-0.10); Basophils % (A) 0.7 %; Eosinophils # (A) 1.99 X 10*3/uL (0.04-0.35); Eosinophils % (A) 10.7 %; HCT 32.4 % (37.2-46.3); HGB 11.3 g/dL (12.0-15.0); Lymphocytes # (A) 1.96 X 10*3/uL (0.90-5.00); Lymphocytes % (A) 10.5 %; MCH 32.8 pg (27.0-32.0); MCHC 34.9 g/dL (32.0-37.0); MCV 93.9 FL (80.0-97.0); Mean Platelet Volume 10.6 FL (9.5-12.2); Monocytes # (A) 0.83 X 10*3/uL (0.20-1.00); Monocytes % (A) 4.5 %; NRBC Per 100 WBC 0 X 10*3/uL (0.00-0.01); Neutrophils # (A) 12.94 X 10*3/uL (1.80-7.70); Neutrophils % (A) 69.4 %; Platelet Count 221 X 10*3/uL (140-440); RBC 3.45 X 10*6/uL (4.10-5.20); RBC Morphology Normal (Normal); RDW 13.2 % (11.5-14.5); WBC 18.64 X 10*3/uL (4.50-10.00)
[2024-09-27 12:24] LABS: Glucose,Whole Blood 213 mg/dL (70-110)
[2024-09-27 17:29] LABS: Glucose,Whole Blood 265 mg/dL (70-110)
[2024-09-27 20:29] LABS: Glucose,Whole Blood 273 mg/dL (70-110)
--- NOTE | 2024-09-27 23:17 | P.PN ---
Subjective Progress Note Date: 09/26/24 This is 68-year-old female with past medical history significant for nicotine dependence, extensive, greater than [id number], diabetes mellitus, fibromyalgia, rheumatoid arthritis and multiple other medical issues presented to the ER with not feeling well over the weekend, feeling tired, rundown and by Saturday developed increased shortness of breath. Reports on Saturday patient proceeded to urgent care , diagnosed with bronchitis ,received prescription of doxycycline only able to take a couple doses due to his GI symptoms. D-dimer elevated 0.93, CTA negative for PE, reporting a 2 cm density peripheral anterior lateral right midlung with enlarged mediastinal and right hilar adenopathy-May be related to infectious etiology, neoplasm not excluded, further workup/monitoring outpatient. Afebrile, Tmax 99.8, WBC 18.9, procalcitonin 1.02, CRP 6.7.hemoglobin 13.9, platelets 208. Sodium 134, potassium 3.5, bicarb 24, BUN 24, creatinine 0.88. Magnesium 1.4 glucose 189. Lactic acid 3.7, corrected to 1.3 with IV fluid hydration. UA reporting moderate blood, positive nitrates negative leukocytes rare bacteria. Viral studies negative. 09/25/2024 maintained on IV Levaquin, nebulized bronchodilators, IV steroids, Symbicort. Afebrile , WBC 18.12 .Currently maintaining O2 sats in the 90s on 6 L nasal cannula.Levemir added yesterday to med regimen, hyperglycemic on IV steroids. Hemoglobin A1c 6.8. Echo reported technically suboptimal study secondary to poor echo windows, normal LV function, mild to moderate mitral and mild tricuspid regurgitation. 09/26/2024 Patient is sitting in the bed. Awake alert and oriented x 3. Requiring oxygen at 2 L via nasal cannula. No complaints of chest pain. Still having short of breath and wheezing on exam. Patient has been current antibiotics at home with levofloxacin. Also on DuoNebs and IV Solu-Medrol., Changed to prednisone 30 mg daily chest x-ray today showed similar right lower lobe airspace opacities. 2D echocardiogram showed normal LV function and mild to moderate mitral and mild tricuspid regurgitation. Laboratory data showed WBC 18.1 hemoglobin 11.7 and platelets 186 sodium 135 potassium 3.8 chloride 101 bicarb is 21.8 BUN 21.8 and creatinine 1.1 and blood sugar 323 A1c 6.8 and magnesium 1.7. Pulmonary is on board. Current medications reviewed. Objective - Vital Signs Vital signs: Vital Signs Temp 97.7 F 09/26/24 07:38 Pulse 72 09/26/24 08:47 Resp 18 09/26/24 08:00 BP 157/60 09/26/24 07:38 Pulse Ox 95 09/26/24 07:38 FiO2 Intake & Output 09/25/24 09/26/24 09/26/24 18:59 06:59 18:59 Intake Total 1080 Balance 1080 Intake: Oral 1080 Other: Voiding Method Bedside Commode Bedside Commode Bedside Commode Diaper Diaper Diaper # Voids 3 2 - Exam PHYSICAL EXAMINATION: Patient is lying in the bed comfortably, no acute distress, awake alert and or iented.. HEENT: Normocephalic. Neck is supple. Pupils reactive. Nostrils clear. Oral cavity is moist. Neck reveals no JVD, carotid bruits, or thyromegaly. CHEST EXAMINATION: Trachea is central. Symmetrical expansion. Bilateral diffuse wheezing and rhonchi.. CARDIAC: Normal S1, S2 with no gallops. No murmurs ABDOMEN: Soft. Bowel sounds normal. No organomegaly. No abdominal bruits. Extremities: reveal no edema. No clubbing or cyanosis Neurologically awake, alert, oriented x3 with well-coordinated movements. No focal deficits noted Skin: No rash or skin lesions. Psychiatric: Coperative. Nonsuicidal Musculoskeletal: No joint swelling or deformity. Normal range of motion. - Labs CBC & Chem 7: 09/27/24 05:19 09/27/24 05:19 Labs: Abnormal Lab Results - Last 24 Hours (Table) 09/25/24 09/25/24 09/25/24 Range/Units 12:19 17:21 20:14 POC Glucose (mg/dL) 286 H 335 H 395 H (70-110) mg/dL 09/26/24 Range/Units 07:09 POC Glucose (mg/dL) 382 H (70-110) mg/dL Microbiology - Last 24 Hours (Table) 09/23/24 16:02 Blood Culture - Preliminary Blood 09/24/24 10:58 Urine Culture - Final Urine,Clean Catch 09/24/24 10:58 Gram Stain - Preliminary Sputum Sputum Culture - Preliminary Assessment and Plan Assessment: Sepsis secondary community-acquired pneumonia, right midlung, procalcitonin elevated, 1.02. Acute COPD exacerbation secondary to the above Acute hypoxic respiratory failure secondary to the above requiring oxygen at 2 L via nasal cannula. Acute UTI, UA reporting positive nitrates. Follow-up urine culture. Leukocytosis Lactic acidosis Diabetes mellitus type 2, hyperglycemic, steroid-induced, hemoglobin A1c 6.8 Mild to moderate mitral regurgitation Hypertension Hyperlipidemia Ongoing nicotine dependence, greater than 50 years Rheumatoid arthritis DVT prophylaxis heparin subcu Plan: Continue on current medication regimen ,monitoring and symptomatic treatment.Continue aggressive pulmonary toileting with nebulized bronchodilators, IV steroids, Symbicort, Levaquin.IV Solu-Medrol changed to prednisone 30 mg daily. weaning of oxygen in progress . Lantus insulin further adjusted for steroid-induced hyperglycemia. Added preprandial insulin. Close monitoring of Accu-Cheks sputum culture in progress. Follow-up urine cultures. Smoking sensation reinforced. Increase ambulation as tolerated. Close monitoring of renal function, electrolytes, WBC with repeat labs ordered for a.m. Time with Patient: Greater than 30
--- NOTE | 2024-09-27 23:20 | P.PN ---
Subjective Progress Note Date: 09/27/24 This is 68-year-old female with past medical history significant for nicotine dependence, extensive, greater than [id number], diabetes mellitus, fibromyalgia, rheumatoid arthritis and multiple other medical issues presented to the ER with not feeling well over the weekend, feeling tired, rundown and by Saturday developed increased shortness of breath. Reports on Saturday patient proceeded to urgent care , diagnosed with bronchitis ,received prescription of doxycycline only able to take a couple doses due to his GI symptoms. D-dimer elevated 0.93, CTA negative for PE, reporting a 2 cm density peripheral anterior lateral right midlung with enlarged mediastinal and right hilar adenopathy-May be related to infectious etiology, neoplasm not excluded, further workup/monitoring outpatient. Afebrile, Tmax 99.8, WBC 18.9, procalcitonin 1.02, CRP 6.7.hemoglobin 13.9, platelets 208. Sodium 134, potassium 3.5, bicarb 24, BUN 24, creatinine 0.88. Magnesium 1.4 glucose 189. Lactic acid 3.7, corrected to 1.3 with IV fluid hydration. UA reporting moderate blood, positive nitrates negative leukocytes rare bacteria. Viral studies negative. 09/25/2024 maintained on IV Levaquin, nebulized bronchodilators, IV steroids, Symbicort. Afebrile , WBC 18.12 .Currently maintaining O2 sats in the 90s on 6 L nasal cannula.Levemir added yesterday to med regimen, hyperglycemic on IV steroids. Hemoglobin A1c 6.8. Echo reported technically suboptimal study secondary to poor echo windows, normal LV function, mild to moderate mitral and mild tricuspid regurgitation. 09/26/2024 Patient is sitting in the bed. Awake alert and oriented x 3. Requiring oxygen at 2 L via nasal cannula. No complaints of chest pain. Still having short of breath and wheezing on exam. Patient has been current antibiotics at home with levofloxacin. Also on DuoNebs and IV Solu-Medrol., Changed to prednisone 30 mg daily chest x-ray today showed similar right lower lobe airspace opacities. 2D echocardiogram showed normal LV function and mild to moderate mitral and mild tricuspid regurgitation. Laboratory data showed WBC 18.1 hemoglobin 11.7 and platelets 186 sodium 135 potassium 3.8 chloride 101 bicarb is 21.8 BUN 21.8 and creatinine 1.1 and blood sugar 323 A1c 6.8 and magnesium 1.7. Pulmonary is on board. 09/27/2024 Patient is currently sitting in the bed. Awake alert and oriented x 3. Lung sounds are less congested today. Denies any chest pain or worsening shortness of breath. Requiring 2 L oxygen via nasal cannula. Patient is on antibiotics from [facility]. Afebrile. No nausea vomiting or abdominal pain or diarrhea. Tolerating oral diet. Patient is being continued on DuoNebs, Symbicort and prednisone 30 mg daily. Pulmonary is on board. Legionella sputum culture negative Urine culture showed no growth after 8 hours. Current medications reviewed. Objective - Vital Signs Vital signs: Vital Signs Temp 98 F 09/27/24 13:01 Pulse 76 09/27/24 16:02 Resp 20 09/27/24 13:01 BP 157/64 09/27/24 13:01 Pulse Ox 94 L 09/27/24 16:05 FiO2 Intake & Output 09/27/24 09/27/24 09/28/24 06:59 18:59 06:59 Intake Total 900 Balance 900 Intake: Oral 900 Other: Voiding Method Bedside Commode Diaper # Voids 2 # Bowel Movements - Exam PHYSICAL EXAMINATION: Patient is lying in the bed comfortably, no acute distress, awake alert and oriented.. HEENT: Normocephalic. Neck is supple. Pupils reactive. Nostrils clear. Oral cavity is moist. Neck reveals no JVD, carotid bruits, or thyromegaly. CHEST EXAMINATION: Trachea is central. Symmetrical expansion. Bilateral expiratory wheezing and scattered rhonchi CARDIAC: Normal S1, S2 with no gallops. No murmurs ABDOMEN: Soft. Bowel sounds normal. No organomegaly. No abdominal bruits. Extremities: reveal no edema. No clubbing or cyanosis Neurologically awake, alert, oriented x3 with well-coordinated movements. No focal deficits noted Skin: No rash or skin lesions. Psychiatric: Coperative. Nonsuicidal Musculoskeletal: No joint swelling or deformity. Normal range of motion. - Labs CBC & Chem 7: 09/27/24 05:19 09/27/24 05:19 Labs: Abnormal Lab Results - Last 24 Hours (Table) 09/27/24 09/27/24 09/27/24 Range/Units 05:19 05:19 07:00 WBC 18.64 H (4.50-10.00) X 10*3/uL RBC 3.45 L (4.10-5.20) X 10*6/uL Hgb 11.3 L (12.0-15.0) g/dL Hct 32.4 L (37.2-46.3) % MCH 32.8 H (27.0-32.0) pg Immature Gran # 0.79 H (0.00-0.04) X 10*3/uL Neutrophils # 12.94 H (1.80-7.70) X 10*3/uL Eosinophils # 1.99 H (0.04-0.35) X 10*3/uL Basophils # 0.13 H (0.00-0.10) X 10*3/uL Anion Gap 13.30 H (4.00-12.00) mmol/L BUN/Creatinine Ratio 25.00 H (12.00-20.00) Ratio Glucose 226 H (70-110) mg/dL POC Glucose (mg/dL) 205 H (70-110) mg/dL 09/27/24 09/27/24 09/27/24 Range/Units 12:10 17:16 20:26 WBC (4.50-10.00) X 10*3/uL RBC (4.10-5.20) X 10*6/uL Hgb (12.0-15.0) g/dL Hct (37.2-46.3) % MCH (27.0-32.0) pg Immature Gran # (0.00-0.04) X 10*3/uL Neutrophils # (1.80-7.70) X 10*3/uL Eosinophils # (0.04-0.35) X 10*3/uL Basophils # (0.00-0.10) X 10*3/uL Anion Gap (4.00-12.00) mmol/L BUN/Creatinine Ratio (12.00-20.00) Ratio Glucose (70-110) mg/dL POC Glucose (mg/dL) 213 H 265 H 273 H (70-110) mg/dL Microbiology - Last 24 Hours (Table) 09/24/24 10:58 Legionella Culture - Preliminary Sputum 09/23/24 16:02 Blood Culture - Preliminary Blood Assessment and Plan Assessment: Sepsis secondary community-acquired pneumonia, right midlung, procalcitonin elevated, 1.02. Acute COPD exacerbation secondary to the above Acute hypoxic respiratory failure secondary to the above requiring oxygen at 2 L via nasal cannula. Acute UTI, UA reporting positive nitrates. Follow-up urine culture. Leukocytosis Lactic acidosis. Improved Diabetes mellitus type 2, hyperglycemic, steroid-induced, hemoglobin A1c 6.8 Mild to moderate mitral regurgitation Hypertension Hyperlipidemia Ongoing nicotine dependence, greater than 50 years Rheumatoid arthritis DVT prophylaxis heparin subcu Plan: Continue on current medication regimen ,monitoring and symptomatic t reatment.Continue aggressive pulmonary toileting with nebulized bronchodilators, IV steroids, Symbicort, Levaquin.IV Solu-Medrol changed to prednisone 30 mg daily. weaning of oxygen in progress . Patient is not on oxygen at home. Lantus insulin further adjusted for steroid-induced hyperglycemia. Added preprandial insulin. Close monitoring of Accu-Cheks sputum culture in progress. Follow-up urine cultures. Smoking sensation reinforced. Increase ambulation as tolerated. Close monitoring of renal function, electrolytes, WBC with repeat labs ordered for a.m. Time with Patient: Greater than 30
[2024-09-28] MEDS: HEPARIN SODIUM,PORCINE 5,000 UNIT/ML 1 ML VIAL SQ SCH (00:48)
[2024-09-28 07:11] LABS: Glucose,Whole Blood 109 mg/dL (70-110)
[2024-09-28] MEDS: INSULIN ASPART (NovoLOG) 100 UNIT/ML VIAL SQ SCH (08:18)
[2024-09-28 08:36] LABS: BUN/Creat Ratio 22.78 Ratio (12.00-20.00); Blood Urea Nitrogen 20.5 mg/dL (9.0-27.0); Calcium 9.1 mg/dL (8.7-10.3); Carbon Dioxide 25.2 mmol/L (21.6-31.8); Chloride 103 mmol/L (96-109); Glucose 141 mg/dL (70-110); Magnesium 1.6 mg/dL (1.5-2.4); Potassium 3.6 mmol/L (3.5-5.5); Sodium 139 mmol/L (135-145)
[2024-09-28 09:07] LABS: Basophils # (M) 0 X 10*3/uL (0.00-0.10); Eosinophils # (M) 0 X 10*3/uL (0.04-0.35); HCT 33.9 % (37.2-46.3); HGB 12.1 g/dL (12.0-15.0); Lymphocytes # (M) 3.37 X 10*3/uL (0.90-5.00); MCH 33.6 pg (27.0-32.0); MCHC 35.7 g/dL (32.0-37.0); MCV 94.2 FL (80.0-97.0); Mean Platelet Volume 10.4 FL (9.5-12.2); Monocytes # (M) 0.84 X 10*3/uL (0.20-1.00); NRBC Per 100 WBC 0 X 10*3/uL (0.00-0.01); Neutrophils # (M) 12.45 X 10*3/uL (1.80-7.70); Neutrophils % (M) 74 %; Platelet Count 211 X 10*3/uL (140-440); Promyelocytes # (M) 0.17 k/uL (0); Promyelocytes % 1 %; RDW 13.1 % (11.5-14.5); WBC 16.83 X 10*3/uL (4.50-10.00)
[2024-09-28] MEDS: MONTELUKAST 10 MG TAB PO STA (09:48)
--- NOTE | 2024-09-28 10:21 | P.DS ---
Providers Date of admission: 09/23/24 16:33 Expected date of discharge: 09/28/24 Attending physician: Luca Mccullough MD Consults: 09/23/24 15:52 Consult Physician Urgent Consulting Provider: Homero Maldonado Consult Reason/Comments: Possible pneumonia with hypoxia Do you want consulting provider notified?: Yes Primary care physician: Irma Loo Hospital Course: Sepsis secondary community-acquired pneumonia, right midlung, procalcitonin elevated, 1.02. Acute COPD exacerbation secondary to the above Acute hypoxic respiratory failure secondary to the above Acute UTI, UA reporting positive nitrates. urine culture reporting no growth after 18 hours Leukocytosis Lactic acidosis Diabetes mellitus type 2, hyperglycemic, steroid-induced, hemoglobin A1c 6.8 Mild to moderate mitral regurgitation Hypertension Hyperlipidemia Ongoing nicotine dependence, greater than 50 years Rheumatoid arthritis Hypomagnesemia Hospital course:This is 68-year-old female with past medical history significant for nicotine dependence, extensive, greater than [id number], diabetes mellitus, fibromyalgia, rheumatoid arthritis and multiple other medical issues presented to the ER with not feeling well over the weekend, feeling tired, rundown and by Saturday developed increased shortness of breath. Reports on Saturday patient proceeded to urgent care , diagnosed with bronchitis ,received prescription of doxycycline only able to take a couple doses due to his GI symptoms. D-dimer elevated 0.93, CTA negative for PE, reporting a 2 cm density peripheral anterior lateral right midlung with enlarged mediastinal and right hilar adenopathy-May be related to infectious etiology, neoplasm not excluded, further workup/monitoring outpatient. Afebrile, Tmax 99.8, WBC 18.9, procalcitonin 1.02, CRP 6.7.hemoglobin 13.9, platelets 208. Sodium 134, potassium 3.5, bicarb 24, BUN 24, creatinine 0.88. Magnesium 1.4 glucose 189. Lactic acid 3.7, corrected to 1.3 with IV fluid hydration. UA reporting moderate blood, positive nitrates negative leukocytes rare bacteria. Viral studies negative. 09/25/2024 maintained on IV Levaquin, nebulized bronchodilators, IV steroids, Symbicort. Afebrile , WBC 18.12 .Currently maintaining O2 sats in the 90s on 6 L nasal cannula.Levemir added yesterday to med regimen, hyperglycemic on IV steroids. Hemoglobin A1c 6.8. Echo reported technically suboptimal study secondary to poor echo windows, normal LV function, mild to moderate mitral and mild tricuspid regurgitation. Continue aggressive pulmonary toileting with nebulized bronchodilators, IV steroids, Symbicort, Levaquin.weaning of oxygen in progress .Lantus insulin further adjusted for steroid-induced hyperglycemia. Close monitoring of Accu- Cheks sputum culture in progress. Smoking sensation reinforced. Increase ambulation as tolerated. Close monitoring of renal function, electrolytes, WBC with repeat labs ordered for a.m. Significant clinical improvement. 92% on room air, currently wearing 2 L nasal cannula at rest, O2 sat not yet documented. O2 sat on room air after ambulation pending for discharge planning. Labs reporting potassium 3.6 and magnesium 1.6 both which will be supplemented prior to discharge. BUN 20.5, creatinine 0.9. Maintained on oral prednisone and oral Levaquin, Afebrile, WBC decreasing 16.83. Patient will be discharged home today in a stable condition with guarded prognosis. The impression and plan of care has been dictated as directed. : I performed a history and examination of this patient, discussed the same with the dictator. I agree with the dictator's note ,documented as a scribe. Any additional findings or plans will be noted. Patient Condition at Discharge: Stable Plan - Discharge Summary Discharge Rx Participant: Yes New Discharge Prescriptions: New Nicotine 21Mg/24Hr Patch [Habitrol] 1 patch TRANSDERM DAILY patch Budesonide-Formot 160-4.5 Mcg [Symbicort 160-4.5 Mcg Inhaler] 2 puff INHALATION RT-BID #1 each predniSONE 10 mg PO DIRECTED #18 tab Levofloxacin [Levaquin] 750 mg PO Q48H #1 tab Continue Clopidogrel [Plavix] 75 mg PO DAILY Loratadine [Claritin] 10 mg PO DAILY Mometasone Furoate [Nasonex 50 MCG] 2 spray NASAL DAILY Atorvastatin [Lipitor] 40 mg PO DAILY Trospium Chloride 20 mg PO DAILY lisinopriL [Zestril] 10 mg PO DAILY #30 tab amLODIPine [Norvasc] 5 mg PO DAILY #30 tab Ergocalciferol (Vitamin D2) [Drisdol (50,000 Iu)] 1,250 mcg PO FR Discontinued Doxycycline Hyclate 100 mg PO BID Discharge Medication List Atorvastatin [Lipitor] 40 mg PO DAILY 04/24/24 [History] Clopidogrel [Plavix] 75 mg PO DAILY 04/24/24 [History] Loratadine [Claritin] 10 mg PO DAILY 04/24/24 [History] Trospium Chloride 20 mg PO DAILY 04/24/24 [History] amLODIPine [Norvasc] 5 mg PO DAILY #30 tab 04/29/24 [Rx] lisinopriL [Zestril] 10 mg PO DAILY #30 tab 04/29/24 [Rx] Ergocalciferol (Vitamin D2) [Drisdol (50,000 Iu)] 1,250 mcg PO FR 09/23/24 [History] Mometasone Furoate [Nasonex 50 MCG] 2 spray NASAL DAILY 09/23/24 [History] Budesonide-Formot 160-4.5 Mcg [Symbicort 160-4.5 Mcg Inhaler] 2 puff INHALATION RT-BID #1 each 09/28/24 [Rx] Levofloxacin [Levaquin] 750 mg PO Q48H #1 tab 09/28/24 [Rx] Nicotine 21Mg/24Hr Patch [Habitrol] 1 patch TRANSDERM DAILY patch 09/28/24 [Rx] predniSONE 10 mg PO DIRECTED #18 tab 09/28/24 [Rx] Follow up Appointment(s)/Referral(s): Luca Mccullough MD [STAFF PHYSICIAN] - 10/02/24 10:00 am (appointment in the [place] office w/ Grace GARCIA) Activity/Diet/Wound Care/Special Instructions: O2 sat on room air after ambulation
[2024-09-28] MEDS: POTASSIUM CHLORIDE ER 20 MEQ TAB.ER PO STA (11:02)
[2024-09-28] MEDS: MAGNESIUM SULFATE-D5W PMX 1 GM in DEXTROSE/WATER 1 100ML.BAG IVPB SCH (11:42)
[2024-09-28 12:16] LABS: Glucose,Whole Blood 235 mg/dL (70-110)
[2024-09-28 13:36] VITALS: BP 148/69; RESP 18; TEMP 98.4
[2024-09-28 16:18] VITALS: PULSE 64
--- NOTE | 2024-09-28 16:58 | P.PN ---
Subjective Progress Note Date: 09/28/24 Patient is a 68-year-old female with past medical history significant for hypertension, hyperlipidemia, diabetes, COPD, and chronic ongoing tobacco dependence. Primary care provider is a PA, Tania Arroyo. On Saturday she went to a local urgent care center, diagnosed with bronchitis. Treated with antibio tics, doxycycline. Despite this, progressively worsened over the last several days. She presented the ED yesterday in some respiratory distress. Associated symptoms include nonproductive cough, chest congestion, reduced appetite, dry heaves. Reports right back pain/pleurisy. Chest CTA done on arrival did not show any acute pulmonary embolism. A 2 cm density peripheral anterolateral in the right midlung with associated adenopathy. Suspicious for infectious process given her symptoms. CBC: WBC count 18.9, hemoglobin 13.9, hematocrit 40.7, platelets 208. CMP: Sodium 134, potassium 3.5, chloride 101, serum bicarb 24, BUN 24, creatinine 0.88, glucose 189. Lactic's are elevated and trending around 3.7. Received a 2 L normal saline bolus in the ED, and continues on normal saline at 75 mL/h. Magnesium 1.4. LFTs unremarkable. Troponin less than 0.012. NT proBNP 247. Viral screen negative for influenza, RSV, COVID. Procalcitonin level was elevated at 1.02. She does have low-grade fever 99.8. She started on Levaquin in the ED. I am evaluating this patient in the emergency department, room 18. She is uncomfortable. She is dyspneic. Tachypneic. Conversational dyspnea 1-2 word phrases. She is on 6 L/min nasal cannula. SpO2 92%. Heart rate 67 bpm. Blood pressure 152/57 mmHg. Current temperature 99.3 F. She has some wheezing. With likely COPD exacerbation. The patient is seen today September 25, 2024 in follow-up on the regular medical floor. She is currently resting in bed. Awake and alert in no acute distress. She is maintaining O2 saturations in the 90s on 6 L high flow nasal cannula. No IV fluids. Her procalcitonin was 1.02. She remains on Levaquin. Remains on DuoNeb inhalations, Symbicort, Solu-Medrol. NicoDerm patch in place. Echocardiogram revealed preserved left ventricular systolic function. Mild to moderate mitral and tricuspid regurgitation. The patient is seen today September 26, 2024 in follow-up on the regular medical floor. She is currently sitting up in bed. Awake and alert in no acute distress. Maintaining good O2 saturations in the 90s on 2 L/min per nasal cannula. No IV fluids. She is continued on Symbicort, DuoNeb inhalations, Solu-Medrol. Remains on antibiotics in the form of Levaquin. Her procalcitonin was 1.02. Today's chest x-ray showing improvement in the right midlung pneumonia. She is feeling better. Blood, sputum and urine cultures revealed no growth. Glucose 382. Continued on Levemir and NovoLog sliding scale. NicoDerm patch in place. The patient is seen today September 27, 2024 in follow-up on the regular medical floor. She is awake and alert in no acute distress. Sitting up in bed. Denies any worsening shortness of breath, cough or congestion. Maintaining good O2 saturations in the upper 90s on 2 L/min per nasal cannula. Afebrile. Hemodynamically stable. She is feeling better each day. She remains on DuoNeb inhalations, Symbicort, prednisone taper. Antibiotics in the form of Levaquin. NicoDerm patch in place. Blood, sputum, urine cultures all revealed no growth. Glucose 205. On 09/28/2024, the patient is slightly improved compared to yesterday. The patient came with right middle lobe pneumonia and the patient was seen in consultation and the patient was treated with a combination of bronchodilators and steroids and antibiotics. Feeling improved compared to yesterday. No other new complaints. Continues to have some ongoing cough and congestion. She is hemodynamically stable and afebrile. Her white cell count from today is at 16.8 with he was 12.1 and a platelet count of 211. The sodium is at 139, bicarb is a 25 review of 20 and a creatinine of 0.9. Blood sugar is slightly elevated. The blood culture has been negative. The sputum sample was also negative. The patient is currently on Symbicort, DuoNeb nebulized treatments [id number], Levaquin and the patient will be discharged on a course of Levaquin to be completed on outpatient basis along with a prednisone burst taper. She will need home O2 and I will also suggest addition of a nebulizer for use of albuterol nebulized treatments [id number] on outpatient basis. She is currently on 2 L of O2 nasal cannula. Objective - Vital Signs Vital signs: Vital Signs Temp 98.1 F 09/28/24 07:29 Pulse 68 09/28/24 08:56 Resp 17 09/28/24 07:29 BP 137/64 09/28/24 07:29 Pulse Ox 93 L 09/28/24 10:26 FiO2 Intake & Output 09/27/24 09/28/24 09/28/24 18:59 06:59 18:59 Intake Total 900 Balance 900 Intake: Oral 900 Other: Voiding Method Bedside Commode Bedside Commode Bedside Commode Diaper Diaper Diaper # Voids 2 3 # Bowel Movements 1 - Exam GENERAL EXAM: Alert, oriented 68-year-old female, on 2 L nasal cannula, in no acute distress. HEAD: Normocephalic and atraumatic EYES: Normal reaction of pupils, equal size. NOSE: Clear with pink turbinates. THROAT: No erythema or exudates. NECK: No masses, no JVD. CHEST: No chest wall deformity. LUNGS: Equal air entry with expiratory wheezes heard bilaterally. CVS: S1 and S2 normal with no audible murmur, regular rhythm. No extra heart sounds ABDOMEN: No hepatosplenomegaly, active bowel sounds, no guarding or rigidity. SPINE: No scoliosis or deformity SKIN: No rashes CENTRAL NERVOUS SYSTEM: No focal deficits, tone is normal in all 4 extremities. EXTREMITIES: There is no peripheral edema, clubbing, or cyanosis. Peripheral pulses are intact. - Labs CBC & Chem 7: 09/28/24 04:41 09/28/24 04:41 Labs: Abnormal Lab Results - Last 24 Hours (Table) 09/27/24 09/27/24 09/28/24 Range/Units 17:16 20:26 04:41 WBC 16.83 H (4.50-10.00) X 10*3/uL RBC 3.60 L (4.10-5.20) X 10*6/uL Hct 33.9 L (37.2-46.3) % MCH 33.6 H (27.0-32.0) pg Neutrophils # (Manual) 12.45 H (1.80-7.70) X 10*3/uL Eosinophils # (Manual) 0 L (0.04-0.35) X 10*3/uL BUN/Creatinine Ratio (12.00-20.00) Ratio Glucose (70-110) mg/dL POC Glucose (mg/dL) 265 H 273 H (70-110) mg/dL 09/28/24 09/28/24 Range/Units 04:41 12:13 WBC (4.50-10.00) X 10*3/uL RBC (4.10-5.20) X 10*6/uL Hct (37.2-46.3) % MCH (27.0-32.0) pg Neutrophils # (Manual) (1.80-7.70) X 10*3/uL Eosinophils # (Manual) (0.04-0.35) X 10*3/uL BUN/Creatinine Ratio 22.78 H (12.00-20.00) Ratio Glucose 141 H (70-110) mg/dL POC Glucose (mg/dL) 235 H (70-110) mg/dL Microbiology - Last 24 Hours (Table) 09/24/24 10:58 Legionella Culture - Preliminary Sputum Assessment and Plan Plan: Right midlung community-acquired pneumonia. Procalcitonin 1.02. Currently on Levaquin. Chest x-ray from 09/26/2024 showed right midlung airspace disease consistent with pneumonia. Acute COPD exacerbation, secondary to above, improving slowly Acute hypoxemic respiratory failure, currently on 2 L nasal cannula, secondary to above Acute leukocytosis Lactic acidemia Hypertension History of hyperlipidemia Diabetes mellitus Chronic ongoing tobacco dependence, with over [id number] history History of rheumatoid arthritis Plan: Arrange home O2 and home nebulizer at discharge being planned for today Continue bronchodilators, steroids in the form of prednisone burst taper Continue Levaquin to complete a 7-day course Titrate down/off the FiO2 as tolerated Will follow
== END 2024-09-28 17:09 | disposition home health service (06) | DRG 871 ==
LOC: EC 12:24 → 4SSUR 16:33 → 5NMEDONC 09-24 06:16
PROVIDERS: ADMIT Family Medicine; ATTEND Family Medicine
DX: A41.9 Sepsis, unspecified organism (principal); J18.9 Pneumonia, unspecified organism; J96.01 Acute respiratory failure with hypoxia; E87.20 Acidosis, unspecified; J44.0 Chronic obstructive pulmonary disease with (acute) lower respiratory infection; J44.1 Chronic obstructive pulmonary disease with (acute) exacerbation; N39.0 Urinary tract infection, site not specified; E11.41 Type 2 diabetes mellitus with diabetic mononeuropathy; E11.65 Type 2 diabetes mellitus with hyperglycemia; E78.5 Hyperlipidemia, unspecified; F17.210 Nicotine dependence, cigarettes, uncomplicated; M06.9 Rheumatoid arthritis, unspecified; M79.7 Fibromyalgia; Z88.1 Allergy status to other antibiotic agents; E83.42 Hypomagnesemia; Z20.822 Contact with and (suspected) exposure to COVID-19; I08.1 Rheumatic disorders of both mitral and tricuspid valves; T38.0X5A Adverse effect of glucocorticoids and synthetic analogues, initial encounter; Z79.02 Long term (current) use of antithrombotics/antiplatelets; Z79.52 Long term (current) use of systemic steroids; Z79.899 Other long term (current) drug therapy; Z82.49 Family history of ischemic heart disease and other diseases of the circulatory system; X58.XXXA Exposure to other specified factors, initial encounter; Z71.6 Tobacco abuse counseling; Z90.49 Acquired absence of other specified parts of digestive tract; Z98.51 Tubal ligation status
CPT/HCPCS: 36415; 51702; 71045; 71046; 71275; 80048; 80053; 81001; 83036; 83605; 83735; 83880; 84132; 84145; 84484; 85025; 85379; 85610; 85730; 86140; 87040; 87070; 87086; 87205; 87449; 87636; 93005; 93306; 94640; 94760; 96361; 96365; 96366; 96375; 96376; 99285; 99406

== ENCOUNTER → 2025-06-09 | Outpatient (CLI) | payer MEDICARE ==
[2025-06-09 10:23] LABS: Basophils # (A) 0.12 10*3/uL (0.00-0.10); Basophils % (A) 1.1 %; Eosinophils # (A) 0.31 10*3/uL (0.04-0.35); Eosinophils % (A) 2.9 %; HCT 43.7 % (37.2-46.3); HGB 14.6 g/dL (12.0-15.0); Lymphocytes # (A) 2.42 10*3/uL (0.90-5.00); Lymphocytes % (A) 22.5 %; MCH 30.9 pg (27.0-32.0); MCHC 33.4 g/dL (32.0-37.0); MCV 92.6 fL (80.0-97.0); Monocytes # (A) 0.60 10*3/uL (0.20-1.00); Monocytes % (A) 5.6 %; Neutrophils # (A) 7.28 10*3/uL (1.80-7.70); Neutrophils % (A) 67.5 %; Platelet Count 311 10*3/uL (140-440); RBC 4.72 10*6/uL (4.10-5.20); RDW 13.8 % (11.5-14.5); WBC 10.77 10*3/uL (4.50-10.00)
== END | disposition home or self-care (01) ==
LOC: LABWHC1 10:03
PROVIDERS: ATTEND Physician Assistant
DX: D69.6 Thrombocytopenia, unspecified (principal); D72.829 Elevated white blood cell count, unspecified
CPT/HCPCS: 36415; 85025